=== PATIENT | female | born 1930 | race Caucasian/White ===

== ENCOUNTER 2017-03-13 18:45 | Observation (INO) | payer MEDICARE, BC ==
--- NOTE | 2017-03-13 19:09 | ERNOTE ---
Dyspnea - Date Date of Service: 03/13/17 - General Presenting Symptoms: shortness of breath Time Seen by Provider: 03/13/17 19:01 Source: patient Exam Limitations: no limitations - Immun/Allergies/Home Medications Immunizations: IMMUNIZATION HX Immunizations Up to Date Yes History of Influenza Vaccine Yes Hx Pneumococcal Vaccination Yes Allergies/Adverse Reactions: Allergies erythromycin base [Erythromycin Base] Allergy (Mild, Verified 03/13/17 18:59) Nausea metoclopramide HCl [From Reglan] Allergy (Mild, Verified 03/13/17 18:59) tremors penicillin G Allergy (Mild, Verified 03/13/17 18:59) Hives Penicillins Allergy (Unknown, Verified 03/13/17 18:59) Other unsure of reations tetracycline [Tetracycline] Adverse Reaction (Intermediate, Verified 03/13/17 18 :59) Nausea Home Medications: HOME MEDICATIONS Acetaminophen [Tylenol] 650 mg PO BID PRN 01/17/15 [Last Taken Unknown] Atorvastatin Calcium [Lipitor] 40 mg PO HS 01/17/15 [Last Taken Unknown] Levothyroxine Sodium [Synthroid] 100 mcg PO DAILY 01/17/15 [Last Taken Unknown] Losartan Potassium [Cozaar] 100 mg PO DAILY 01/17/15 [Last Taken Unknown] Omeprazole [Prilosec] 40 mg PO DAILY 01/17/15 [Last Taken Unknown] clonazePAM [Klonopin] 0.5 mg PO BID PRN 03/07/15 [Last Taken Unknown] Gabapentin [Neurontin] 600 mg PO HS #60 capsule 03/09/15 [Last Taken Unknown] Fluticasone Propionate [Flonase] 2 spray NS DAILY PRN 02/14/16 [Last Taken Unknown] Gabapentin [Neurontin] 300 mg PO BID 02/14/16 [Last Taken Unknown] Mesalamine [Lialda] 2.4 gm PO DAILY 02/14/16 [Last Taken Unknown] Tiotropium [place] [Spiriva] 18 mcg IH DAILY 02/14/16 [Last Taken Unknown] Albuterol Sulfate 2.5 mg IH Q4H PRN #25 vial.neb 06/04/16 [Last Taken Unknown] Benzonatate [Tessalon Perle] 100 mg PO TID PRN 06/11/16 [Last Taken Unknown] Carbamide Peroxide [Ear Drops] 3 drop OT Q14D 06/11/16 [Last Taken Unknown] Cetirizine HCl [Zyrtec] 10 mg PO HS 06/11/16 [Last Taken Unknown] Hydrocortisone [Hydrocortisone 1% Cream] 1 appl TP BID 06/11/16 [Last Taken Unknown] Hydrophilic Ointment [Aquaphilic Ointment] 1 appl TP BID 06/11/16 [Last Taken Unknown] Nystatin/Triamcin [Mycolog Cream] 1 appl TP BID 06/11/16 [Last Taken Unknown] Levofloxacin [Levaquin] 500 mg PO Q48H #2 tablet 06/17/16 [Last Taken Unknown] Sennosides/Docusate Sodium [Senokot-S] 1 tab PO BID PRN #60 tablet 06/17/16 [ Last Taken Unknown] Sulfamethoxazole/Trimethoprim [Bactrim] 1 tab PO BID #6 tablet 06/17/16 [Last Taken Unknown] - History of Present Illness Narrative: 6-year-old female presents to the emergency room for increased shortness of breath. Patient is spo2 91% on room air and breathing around 26 breaths per minute at this time. Patient states that she has had shortness of breath before but this is worse. 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 Denies: fever/chills, sweating, chest pain/discomfort, palpitations, cough, wheezing, ankle/leg swelling Review of Systems - Review of Systems Constitutional: Present: no symptoms reported EYE: Present: no symptoms reported ENT: Present: no symptoms reported Respiratory: Present: See HPI, shortness of breath, orthopnea Cardiology: Present: no symptoms reported Gastrointestinal/Abdominal: Present: no symptoms reported Genitourinary: Present: no symptoms reported Musculoskeletal: Present: no symptoms reported Skin: Present: no symptoms reported Neurological: Present: no symptoms reported Endocrine: Present: no symptoms reported Hematologic/Lymphatic: Present: no symptoms reported Psych: Present: no symptoms reported All Other Systems: All systems neg except as marked - Patient's Past Medical History Patient History - Medical: Anemia, Anxiety, Arthritis, Cataracts, Diabetes Type 2, GERD, Hypothyroidism, Osteoarthritis, Renal Disease, UTI'S Patient History - Cardiac/Respiratory: COPD, Other Patient History - Cancer: Colon Patient History - Surgical Procedures: Cancer Surgery, Cholecystectomy, Total Hip Replacement Patient History - Other: None - Family History Mother Family History - Medical: Family History - Cardiac/Respiratory: Myocardial Infarction Father Family History - Medical: - Social History Living Situations: home Abuse History: No History of abuse Psych History: Hx of Anxiety Smoking Status: Former smoker Alcohol Use: none Drug Use: none - Immunizations Immunizations Up to Date: Yes Hx Pneumococcal Vaccination: Yes History of Influenza Vaccine: Yes Physical Exam - Physical Exam General Appearance: Present: wd/wn, alert, mild distress Eye Exam: Normal inspection: bilateral Ears, Nose, Throat: Present: normal ENT inspection Neck: Present: normal inspection, nontender Respiratory: Present: decreased breath sounds Cardiovascular/Chest: Present: regular rate, rhythm, normal peripheral pulses Gastrointestinal/Abdominal: Present: normal bowel sounds, soft Extremity Exam: Present: normal inspection, normal range of motion, no edema Neurological Exam: Present: alert, normal mood/affect, no motor/sensory deficits Skin Exam: Present: normal color, warm/dry Lymphatic Exam: Present: no adenopathy ED Progress - Results and Orders Patient's Lab Results:: I have reviewed the patient's lab results. Results and Orders: low hgb 7.63 - Vital Signs Patient's Vital Signs:: I have reviewed the patient's vital signs. Vital Signs: Vital Signs 03/13/17 03/13/17 18:53 18:57 Temperature 37.4 C Pulse Rate 94 91 Respiratory 20 Rate Blood Pressure 118/94 O2 Sat by Pulse 95 Oximetry - Progress/Reassessment Chief Complaint: Dyspnea Progress:: Unchanged Departure Clinical Impression: Hypoxia Anemia Qualifiers: Anemia type: due to chronic kidney disease Chronic kidney disease stage: stage 3 (moderate) Qualified Code(s): N18.3 - Chronic kidney disease, stage 3 ( moderate); D63.1 - Anemia in chronic kidney disease - Departure Disposition: [facility]
--- OUTSIDE RECORDS SUMMARY | 2017-03-13 19:15 | XMS REPORT | Continuity of Care Document ---
:1930 Author Organization [facility] ([facility]) Address [address] [place] [address] Phone [phone] Care Team Providers Name Role Phone Cecile Pandey Primary Care Provider [phone] Source Comments This disclosure is being made pursuant to the Care Everywhere program, applicable federal and state laws, and may not contain all informaitonavailable regarding this patient.[facility] ([facility]) Active Allergies and Adverse Reactions Allergen Noted Date Severity Reactions Comments Erythromycin Nausea & Vomiting Metoclopramide OTHER tremors Penicillins Urticaria (Hives) Tetracycline Nausea & Vomiting Current Medications Prescription Sig. Disp. Refills Start Date End Date Status atorvastatin Take 40 mg by Active (LIPITOR) 40 mg mouth daily. tablet tiotropium (SPIRIVA Use 18 mcg by Active WITH HANDIHALER) 18 inhalation mcg inhalation daily. capsule clonazePAM 0.5 mg Take 0.5 mg by Active tablet mouth 2 times daily as needed. GABAPENTIN 300 mg 06/01/2015 Active capsule LOSARTAN 100 mg 07/10/2015 Active tablet DILTIAZEM 120 mg ER 05/25/2015 Active capsule NYSTATIN-TRIAMCINOL 05/16/2015 Active ONE 100,000-0.1 unit/g-% cream levothyroxine 100 Take 100 mcg by 05/13/2016 Active mcg tablet mouth daily. acetaminophen 325 Take 325 mg by Active mg tablet mouth every 4 hours as needed. aquaphilic topical Apply topically Active ointment as needed. fluticasone 50 Use 2 Sprays Active mcg/Actuation nasal into both spray nostrils as needed. hydrocortisone 1 % Apply topically Active topical cream 2 times daily. DARBEPOETIN LISS IN Inject by Active POLYSORBAT (ARANESP injection every (IN POLYSORBATE) month. IJ) omeprazole 40 mg 12/06/2016 Active enteric coated capsule sodium bicarbonate Active PO trimethoprim-sulfam 12/12/2016 Active ethoxazole 160-800 mg per tablet balsalazide Take 1 capsule 90 capsule 6 03/07/2017 Active (COLAZAL) 750 mg (750 mg total) capsule by mouth 3 times daily. mesalamine (APRISO) Take 1 capsule 60 capsule 6 12/18/2016 Discontinued 0.375 gram XR (375 mg total) 7 capsule by mouth 2 times daily. Do not take at the same time as antacids. Active Problems Problem Noted Date Gastroesophageal reflux disease without esophagitis 05/15/2016 Diarrhea 07/24/2015 Biliary stone 02/22/2014 Anemia in chronic kidney disease 02/09/2014 Overview: Erythropoietin level 17, Hb 7.7, Reticulocyte count 29 Cholelithiasis 02/06/2014 S/P cholecystectomy 02/06/2014 Choledocholithiasis 02/02/2014 COPD (chronic obstructive pulmonary disease) 02/02/2014 HTN (hypertension) 02/02/2014 HLD (hyperlipidemia) 02/02/2014 Hypothyroidism 02/02/2014 History of colon cancer 08/12/2012 Type II or unspecified type diabetes mellitus without mention of 12/24/2007 complication, not stated as uncontrolled Most Recent Encounters Date Type Specialty Providers Description 03/06/2017 Telephone Med GI/Hepatology Yen Lutz Chief Comp: Need Prior Authorization 03/05/2017 Refill Med GI/Hepatology Kizzy Potts, Dx: Non-specific RN colitis (Primary Dx) 02/26/2017 Office Visit Med GI/Hepatology Jevon Beatty Chief Comp: Patient MD Reported Reason For Visit 12/18/2016 Refill Med GI/Hepatology Jevon Beatty, Dx: Non-specific MD colitis (Primary Dx) 12/17/2016 Telephone Med GI/Hepatology 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 Cruz 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 Results 12/17/2016 Telephone Med GI/Hepatology Jevon Beatty Chief Comp: Results 12/16/2016 Hospital Encounter Radiology Catrachito Kidd, Dx: Anemia, unspecified type 12/16/2016 Office Visit Pathology Jevon Beatty, Chief Comp: Patient MD Reported Reason For Lab Services, Irl Visit 12/16/2016 Office Visit Med GI/Hepatology Jevon Beatty, Dx: MD Pepe unspecified type (Primary Dx) 12/16/2016 Ancillary Orders Med GI/Hepatology Jevon Beatty, Dx: MD Pepe unspecified type (Primary Dx) Social History Tobacco Use Types Packs/Day Years Used Date Former Smoker 1 Quit: 10/06/1999 Smokeless Tobacco: Never Used Tobacco Cessation:Counseling Given: Yes Comments: Alcohol Use Drinks/Week oz/Week Comments No Last Filed Vital Signs Vital Sign Reading Time Taken Blood Pressure 132/62 12/16/2016 3:06 PM CDT Pulse 76 12/16/2016 3:06 PM CDT Temperature 36.9 C (98.4 F) 12/16/2016 3:06 PM CDT Respiratory Rate 16 11/14/2015 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 Height 1.626 m (5' 4.02") 05/15/2016 3:13 PM CDT Weight 71.3 kg (157 lb 3 oz) 12/16/2016 3:06 PM CDT Body Mass Index 26.97 12/16/2016 3:06 PM CDT Oxygen Saturation 95% 11/14/2015 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 Plan of Care Date Type Specialty Providers Description 06/25/2017 Appointment Med GI/Hepatology Jevon Beatty MD Chief Comp: Patient [address] [place] [address] Visit [phone] (Fax) Health Maintenance Due Date Last Done Comments Hepatitis B Vaccine (1 of 3 - Primary 1930 Series) Tdap Vaccine 1941 DIABETIC: Cholesterol 1948 Diabetic: Hdl 1948 Diabetic: Ldl 1948 DIABETIC: Microalbumin 1948 DIABETIC: Triglycerides 1948 Td Vaccine 1948 Zoster Vaccine 1989 Pneumococcal Vaccine (1 of 2 - PCV13) 1994 DIABETIC: Hemoglobin A1C 01/23/2011 07/25/2010, 06/04/2010, 12/21/2007 DIABETIC: Foot Exam 03/19/2011 DIABETIC: Retinal Eye Exam 03/19/2011 Influenza Vaccine: Seasonal (Season 05/06/2017 Ended) Results from Last 3 Months ABDOMEN AP SUPINE (12/16/2016 3:59 PM) Impressions Findings/impression: Lung bases are clear. Greater than expected stool burden in the colon. No evidence for obstruction. Post surgical changes in the right iliac fossa. Pronounced degenerative changes of the lower lumbar spine. Bilateral total hip arthroplasties with no evidence of obvious complication. Exuberant callus formation adjacent to the proximal left femur. Narrative Procedure:ABDOMEN AP SUPINE Clinical Indication: Evaluate stool load Technique: APradiograph(s) of the abdomen. Comparison: CT body from 07/18/2010 Procedure Note [place], Incoming Imaging Results - FriDec 16, 2016 5:04 PM CDT Procedure: ABDOMEN AP SUPINE Clinical Indication: Evaluate stool load Technique: AP radiograph(s) of the abdomen. Comparison: CT body from 07/18/2010 IMPRESSION Findings/impression: Lung bases are clear. Greater than expected stool burden in the colon. No evidence for obstruction. Post surgical changes in the right iliac fossa. Pronounced degenerative changes of the lower lumbar spine. Bilateral total hip arthroplasties with no evidence of obvious complication. Exuberant callus formation adjacent to the proximal left femur. BLOOD CELL MORPHOLOGY (12/16/2016 3:45 PM) Component Value Range Polychromasia Comment:Occasional Schistocytes 1+ Tear Drop 2+ Acanthocytes 1+ Basophilic Stippling Present Large Platelet Present Specimen Whole Blood BLOOD UREA NITROGEN (12/16/2016 3:45 PM) Component Value Range BUN 27(H) 10-20 mg/dL Specimen Blood CREATININE (12/16/2016 3:45 PM) Component Value Range Creatinine 1.6(H)Comment: 0.5-1.0 mg/dL Creatinine switched to enzymatic method on 02/12/2011.GFR equation switched to IDMS-traceable MDRD equation on 02/12/2011. Calculated GFR values are not valid in clinical settings where serum creatinine is changing. Calculated GFR 30(L) >60 mL/min/1.73 m2 Specimen Blood C-REACTIVE PROTEIN (12/16/2016 3:45 PM) Component Value Range CRP (C-Reactive Protein) <0.5 <=0.5 mg/dL Specimen Blood CBC (COMPLETE BLOOD COUNT) (12/16/2016 3:45 PM) Component Value Range WBC Count 8.3 3.7-10.5 K/MM3 RBC Count 2.67(L) 4.00-5.20 M/MM3 Hemoglobin 8.6(L) 11.9-15.5 g/dL Hematocrit 27(L) 35-47 % MCV (Mean Corpuscular Volume) 100(H) 82-99 FL MCH (Mean Corpuscular Hemoglobin) 32 25-35 PG MCHC (Mean Corpuscular Hemoglobin Concentration) 32 32-36 % Platelet Count 162 150-400 K/MM3 RBC Dist Width-STD 70.9(H) 36.4-46.3 FL RBC Distrib Width 20.4(H) 9.0-14.5 % Specimen Whole Blood
[2017-03-13 19:28] LABS: Mean Cell Volume 94.4 fl (78-100); Mean Corpuscular Hemoglobin 30.2 pg (27-31); Mean Corpuscular Hgb Conc 31.9 g/dl (32-36); Mean Platelet Volume 11.9 fl (6.0-9.5); Neutrophil # 5.3 K/mm3 (1.3-6.0); Neutrophil % 72.6 % (42-75.0); Platelet Count 203 K/mm3 (150-450); Red Blood Count 2.52 M/mm3 (4.2-5.4); White Blood Count 7.3 K/mm3 (4.0-10.5)
[2017-03-13 19:30] LABS: Hematocrit 23.8 % (37.0-47.0); Hemoglobin 7.6 gm/dL (12.5-16.0)
[2017-03-13 19:47] LABS: Troponin I Less than 0.017 ng/ml (0.00-0.10)
[2017-03-13 19:48] LABS: ALT 42 U/L (19-67); AST 36 U/L (0-48); Albumin * 2.3 gm/dl (3.4-5.0); Alkaline Phosphatase * 94 U/L (50-170); Anion Gap 15.4 mmol/L (6.8-13.8); BNP * 2568 pg/mL (5-550); BUN/Creatinine Ratio 12.3 (9.0-21.6); Bilirubin, Total 0.4 mg/dL (0.0-1.1); Blood Urea Nitrogen 20 mg/dL (3-23); Ca. Corrected For Albumin 7.7 mg/dL (8.4-10.2); Calcium * 6.7 mg/dL (7.9-10.9); Carbon Dioxide 21.9 mmol/L (24-32.6); Chloride 107 mmol/L (97-106); Glucose * 104 mg/dL (70-110); Potassium 4.3 mmol/L (3.4-4.6); Sodium 140 mmol/L (132-142); Total Protein 6.4 gm/dL (6.2-8.2)
--- OUTSIDE RECORDS SUMMARY | 2017-03-13 20:00 | XMS REPORT | Continuity of Care Document ---
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
[2017-03-13 20:17] LABS: Urine Bilirubin Negative (NEGATIVE); Urine Blood Negative /ul (NEGATIVE); Urine Ketone Negative (NEGATIVE); Urine Nitrite Negative (NEGATIVE); Urine Protein Negative (NEGATIVE); Urine Specific Gravity 1.015 SP.GR. (1.005-1.010); Urine Urobilinogen Normal (NORMAL)
[2017-03-13 20:26] LABS: Urine Appearance Clear; Urine Bacteria None Seen; Urine Color Yellow; Urine RBC None Seen /hpf (0-5); Urine WBC None Seen /hpf (0-5)
[2017-03-13] MEDS ORDERED: FUROSEMIDE 10 MG/ML VIAL IV ONE ×2 (20:37→21:26)
[2017-03-13] MEDS ORDERED: ACETAMINOPHEN 325 MG TABLET PO ONE (21:26)
[2017-03-13] MEDS ORDERED: diphenhydrAMINE HCL 50 MG/ML VIAL IV ONE (21:26)
[2017-03-13] MEDS ORDERED: FUROSEMIDE 10 MG/ML VIAL ONE (21:57)
[2017-03-13] MEDS ORDERED: FUROSEMIDE 10 MG/ML VIAL IV SCH (22:00)
--- NOTE | 2017-03-13 23:22 | HP ---
<Elyssa Faulkner - Last Filed: 03/14/17 04:01> Chief Complaint - Chief Complaint Date of Service: 03/13/17 Time of Service: 21:30 Chief Complaint: dyspnea, anemia, confusion History of Present Illness: Sepideh is an 86 year old female patient of Dr. Pandey with a PMH of DM, CKD stage 3, COPD, systolic CHF, COPD, chronic anemia (currently being worked up by nephrology at [facility]), HTN, HLD who presented to the ER with c/o increased dyspnea for the last month that worsened significantly over the last 2 days. Patient is a poor historian. denies PND, lower extremity edema, fever, chills, or wheezing. 91% on RA in ER. found to be confused at times in the ER that improved with O2 administration per ER provider. ER eval revealed elevated d- dimer but unable to do ct scan due to creatinine of 1.63. CXR showed no acute pulmonary process and an enlarged heart. BNP elevated at 2568. troponin negative. UA negative. hgb lower than chronic normal at 7.6. last echo 02/2010 shows ef 45-50% with sev septal hypokinesis, mod to sev apical wall hypokinesis , mild MR and aortic valve sclerosis without stenosis. heart cath 02/2010 showed normal coronary arteriography with right dominant circulation. Patient to be admitted for CHF exacerbation, anemia and dyspnea. - Patient's Past Medical History Patient History - Medical: Anemia, Anxiety, Arthritis, Cataracts, Diabetes Type 2, GERD, Hypothyroidism, Osteoarthritis, Renal Disease, UTI'S Patient History - Cardiac/Respiratory: COPD, Other Patient History - Cancer: Colon Patient History - Surgical Procedures: Cancer Surgery, Cholecystectomy, Total Hip Replacement Patient History - Other: None LMP (females 10-50): Menopausal - Family History Mother Family History - Medical: Family History - Cardiac/Respiratory: Myocardial Infarction Father Family History - Medical: , No pertinent hx - Social History Living Situations: home Abuse History: No History of abuse Psych History: Hx of Anxiety Smoking Status: Former smoker Have you smoked in the past 12 months: No Do you dip or chew tobacco: No Smoking Stop Date: 03/13/00 Patient requests Smoking Cessation Consult: No Alcohol Use: none Drug Use: none - Immunizations Immunizations Up to Date: Yes Hx Pneumococcal Vaccination: Yes History of Influenza Vaccine: Yes Review Of Systems (GEN) - Review of Systems Generalized/Overall Review: Present: Fatigue EENTM: Present: No Symptoms Reported Respiratory: Present: Shortness of Breath. Absent: Wheezing Cardiac: Present: No Symptoms Reported Abdominal: Present: No Symptoms Reported Genitourinary: Present: No Symptoms Reported Musculoskeletal: Present: No Symptoms Reported Neurological: Present: No Symptoms Reported Skin: Present: No Symptoms Reported Endocrine: Present: No Symptoms Reported Misc: All systems neg except as marked Immunizations: IMMUNIZATION HX Immunizations Up to Date Yes History of Influenza Vaccine Yes Hx Pneumococcal Vaccination Yes Allergies/Adverse Reactions: Allergies Allergy/AdvReac Type Severity Reaction Status Date / Time erythromycin base Allergy Mild Nausea Verified 03/13/17 18:59 [Erythromycin Base] metoclopramide HCl Allergy Mild tremors Verified 03/13/17 18:59 [From Reglan] penicillin G Allergy Mild Hives Verified 03/13/17 18:59 Penicillins Allergy Unknown Other Verified 03/13/17 18:59 tetracycline [Tetracycline] AdvReac Intermediate Nausea Verified 03/13/17 18:59 Home Medications: HOME MEDICATIONS Acetaminophen [Tylenol] 650 mg PO BID PRN 01/17/15 [Last Taken Unknown] Atorvastatin Calcium [Lipitor] 40 mg PO HS 01/17/15 [Last Taken 03/12/17] Levothyroxine Sodium [Synthroid] 100 mcg PO DAILY 01/17/15 [Last Taken 03/13/17] Losartan Potassium [Cozaar] 50 mg PO DAILY 01/17/15 [Last Taken 03/13/17] Omeprazole [Prilosec] 20 mg PO DAILY 01/17/15 [Last Taken 03/13/17] clonazePAM [Klonopin] 0.5 mg PO TID 03/07/15 [Last Taken Unknown] Fluticasone Propionate [Flonase] 2 spray NS DAILY PRN 02/14/16 [Last Taken Unknown] Gabapentin [Neurontin] 300 mg PO TID 02/14/16 [Last Taken 03/13/17] Tiotropium [place] [Spiriva] 18 mcg IH DAILY 02/14/16 [Last Taken 03/13/17] Nystatin/Triamcin [Mycolog Cream] 1 appl TP TID 06/11/16 [Last Taken Unknown] Balsalazide Disodium [Colazal] 750 mg PO TID 03/14/17 [Last Taken Unknown] Calcium Polycarbophil [Fibercon] 625 mg PO DAILY 03/14/17 [Last Taken Unknown] Darbepoetin Moise in Polysorbat [Aranesp] SC .MONTHLY 03/14/17 [Last Taken Unknown] Diltiazem HCl [Cardizem] 120 mg PO HS 03/14/17 [Last Taken Unknown] Estradiol [Estrace Vaginal] 1 gm VG 2XW 03/14/17 [Last Taken Unknown] Loperamide 2 mg PO .Q4H PRN 03/14/17 [Last Taken Unknown] Polyethylene Glycol 3350 [Miralax] 17 gm PO DAILY 03/14/17 [Last Taken Unknown] Sodium Bicarbonate 650 mg PO BID 03/14/17 [Last Taken Unknown] Exam - Exam Vital Signs: Vital Signs - Last Taken Temp 36.6 C 03/13/17 21:00 Pulse 88 03/13/17 22:05 Resp 17 03/13/17 21:00 BP 110/50 03/13/17 22:05 Pulse Ox 92 03/13/17 21:00 Constitutional: Present: Alert, Cooperative, No distress ENT Exam: Present: hearing grossly normal Eye Exam: bilateral eye: normal inspection Neck: Present: supple Back Exam: Present: normal inspection, no vertebral tenderness Breasts: Present: Exam deferred Respiratory: Present: chest non-tender, no respiratory distress, decreased breath sounds Cardiovascular/Chest: Present: normal peripheral pulses, regular rate, rhythm, no chest tenderness, systolic murmur - 2/6. Absent: edema Peripheral Pulses: dorsalis-pedis (R): 2+, dorsalis-pedis (L): 2+, radial (R): 2 +, radial (L): 2+ Abdomen: Present: soft, nontender, nondistended /Rectal: Present: Exam deferred Extremity: Present: non-tender, normal inspection. Absent: lower extremity edema Skin Exam: Present: warm/dry, no cyanosis, pallor Diagnostic Studies: Abnormal Lab Results 03/13/17 Range/Units 20:50 Crossmatch See Detail Laboratory Results WBC 7.3 K/mm3 (4.0-10.5) 03/13/17 19:06 RBC 2.52 M/mm3 (4.2-5.4) L 03/13/17 19:06 Hgb 7.6 gm/dL (12.5-16.0) L* 03/13/17 19:06 Hct 23.8 % (37.0-47.0) L* 03/13/17 19:06 MCV 94.4 fl (78-100) 03/13/17 19:06 MCH 30.2 pg (27-31) 03/13/17 19:06 MCHC 31.9 g/dl (32-36) L 03/13/17 19:06 RDW 20.0 % (11.5-14.0) H 03/13/17 19:06 Plt Count 203 K/mm3 (150-450) 03/13/17 19:06 MPV 11.9 fl (6.0-9.5) H 03/13/17 19:06 Immature Gran % (Auto) 1.20 % (0.001-0.429) H 03/13/17 19:06 Immature Gran # (Auto) 0.09 K/mm3 (0.000-0.0310) H 03/13/17 19:06 Neutrophils % 72.6 % (42-75.0) 03/13/17 19:06 Lymphocytes % 18.6 % (20-51) L 03/13/17 19:06 Monocytes % 5.7 % (0.0-9) 03/13/17 19:06 Eosinophils % 1.5 % (0.0-3.0) 03/13/17 19:06 Basophils % 0.4 % (0.0-1.0) 03/13/17 19:06 Nucleated RBC % 0.0 k/mm3 (0-1) 03/13/17 19:06 Neutrophils # 5.3 K/mm3 (1.3-6.0) 03/13/17 19:06 Lymphocytes # 1.4 k/mm3 (1.5-3.5) L 03/13/17 19:06 Monocytes # 0.4 k/mm3 (0.0-1.0) 03/13/17 19:06 Eosinophils # 0.1 k/mm3 (0.0-0.7) 03/13/17 19:06 Absolute Basophils 0.0 k/mm3 (0.0-0.1) 03/13/17 19:06 D-Dimer 1.31 mg/L (0.19-0.49) H 03/13/17 19:20 Sodium 140 mmol/L (132-142) 03/13/17 19:20 Plasma Sodium 140 mmol/L (130-142) 03/13/17 19:20 Potassium 4.3 mmol/L (3.4-4.6) 03/13/17 19:20 Chloride 107 mmol/L (97-106) H 03/13/17 19:20 Carbon Dioxide 21.9 mmol/L (24-32.6) L 03/13/17 19:20 Anion Gap 15.4 mmol/L (6.8-13.8) H 03/13/17 19:20 BUN 20 mg/dL (3-23) 03/13/17 19:20 Creatinine 1.63 mg/dL (0.4-1.4) H D 03/13/17 19:20 Est GFR (Non-Af Amer) 32 mL/min (60-130) L D 03/13/17 19:20 BUN/Creatinine Ratio 12.3 (9.0-21.6) 03/13/17 19:20 Random Glucose 104 mg/dL (70-110) 03/13/17 19:20 Calcium 6.7 mg/dL (7.9-10.9) L 03/13/17 19:20 Calcium Adj for Albumin 7.7 mg/dL (8.4-10.2) L 03/13/17 19:20 Total Bilirubin 0.4 mg/dL (0.0-1.1) 03/13/17 19:20 AST 36 U/L (0-48) 03/13/17 19:20 ALT 42 U/L (19-67) 03/13/17 19:20 Alkaline Phosphatase 94 U/L (50-170) 03/13/17 19:20 Troponin I Less than 0.017 ng/ml (0.00-0.10) 03/13/17 19:20 B-Natriuretic Peptide 2568 pg/mL (5-550) H 03/13/17 19:20 Total Protein 6.4 gm/dL (6.2-8.2) 03/13/17 19:20 Albumin 2.3 gm/dl (3.4-5.0) L 03/13/17 19:20 Procalcitonin 0.08 ng/mL (0.05-0.50) 03/13/17 19:20 Urine Color Yellow 03/13/17 19:48 Urine Appearance Clear 03/13/17 19:48 Urine pH 6.0 pH (5.0-7.0) 03/13/17 19:48 Ur Specific [place] 1.015 SP.GR. (1.005-1.010) 03/13/17 19:48 Urine Protein Negative mg/dL (NEGATIVE) 03/13/17 19:48 Urine Glucose (UA) Negative mg/dL (NEGATIVE) 03/13/17 19:48 Urine Ketones Negative mg/dL (NEGATIVE) 03/13/17 19:48 Urine Blood Negative /ul (NEGATIVE) 03/13/17 19:48 Urine Nitrate Negative (NEGATIVE) 03/13/17 19:48 Urine Bilirubin Negative mg/dl (NEGATIVE) 03/13/17 19:48 Urine Urobilinogen Normal EU/dl (NORMAL) 03/13/17 19:48 Ur Leukocyte Esterase Negative /ul (NEGATIVE) 03/13/17 19:48 Urine RBC None seen /hpf (0-5) 03/13/17 19:48 Urine WBC None seen /hpf (0-5) 03/13/17 19:48 Ur Epithelial Cells 5-10 /hpf (0-5) H 03/13/17 19:48 Urine Bacteria None seen (NONE) 03/13/17 19:48 Urine Culture Comments No culture indicated 03/13/17 19:48 Blood Type A Positive 03/13/17 20:50 Antibody Screen Negative 03/13/17 20:50 Crossmatch See Detail 03/13/17 20:50 Assessment/Plan - Narrative Narrative: Systolic CHF / dyspnea - last ef in 2009 45-50% with mod-sev wall motion abnormalities. - lasix 60 mg iv x1 03/13/17 - strict I&Os - daily weights - Chest xray shows no acute pulmonary process but enlarged heart - ? echo outpatient Confusion - ? multifactorial due to worsening anemia vs chf exac vs other factor(s) - monitor for now elevated d-dimer - unable to do ct of chest due to elevated creatinine - US of bilat lower legs to rule out dvt COPD - no hypoxia currently - no wheezing heard in lung perez - no recent URI / no fever/chills / no cough - O2 sat goal: 88-92% Diabetes - blood sugar 104 in ER - accu-check AC as a precaution - hold sliding scale for now. Anemia - hgb 7.6 in ER, lower than chronic normal. - higher risk for event due to cardiac history thus chose to transfuse now vs waiting until hgb dropped further. - nephrology consult indicates "unclear etiology, seems to be attributed to underlying chronic kidney disease which is a possibility but the level of kidney function seems inappropriate for the degree of anemia." - hemoccult stool - transfuse 1 unit PRBCs - SLOWLY given systolic CHF - will need iv lasix after unit of blood - recheck h/h post transfusion CKD, Stage 3 - stable - monitor labs while in hospital HTN - monitor vitals signs q 4 hours Code status: Full Code VTE: lovenox / rupesh yoe GI proph: pepcid po - Assessment/Plan (1) CHF (congestive heart failure) Problem: Acute QualifierTitle: Congestive heart failure type: systolic Congestive heart failure chronicity: acute Qualified Code(s): I50.21 - Acute systolic ( congestive) heart failure (2) Confusion Problem: Acute (3) Diabetes Problem: Chronic QualifierTitle: Diabetes mellitus type: type 2 Diabetes mellitus complication status: with kidney complications Diabetes mellitus complication detail: with chronic kidney disease Diabetes mellitus intermission coordinator insulin use: without intermission coordinator use Chronic kidney disease stage: stage 3 (moderate) Qualified Code(s): E11.22 - Type 2 diabetes mellitus with diabetic chronic kidney disease; N18.3 - Chronic kidney disease, stage 3 (moderate) (4) HTN (hypertension) Problem: Chronic QualifierTitle: Hypertension type: essential hypertension Qualified Code( s): I10 - Essential (primary) hypertension (5) HLD (hyperlipidemia) Problem: Chronic QualifierTitle: Hyperlipidemia type: unspecified Qualified Code(s): E78.5 - Hyperlipidemia, unspecified (6) GERD (gastroesophageal reflux disease) Problem: Chronic QualifierTitle: Esophagitis presence: esophagitis presence not specified Qualified Code(s): K21.9 - Gastro-esophageal reflux disease without esophagitis (7) Anemia Problem: Chronic QualifierTitle: Anemia type: due to chronic kidney disease Chronic kidney disease stage: stage 3 (moderate) Qualified Code(s): N18.3 - Chronic kidney disease, stage 3 (moderate); D63.1 - Anemia in chronic kidney disease (8) COPD (chronic obstructive pulmonary disease) Problem: Chronic QualifierTitle: COPD type: unspecified COPD Qualified Code(s): J44.9 - Chronic obstructive pulmonary disease, unspecified (9) Elevated d-dimer Problem: Acute <[email or web address] - Last Filed: 03/14/17 18:11> Immunizations: IMMUNIZATION HX Immunizations Up to Date Yes History of Influenza Vaccine Yes Hx Pneumococcal Vaccination Yes Exam - Exam Vital Signs: Vital Signs - Last Taken Temp 36.4 C L 03/14/17 14:17 Pulse 84 03/14/17 14:17 Resp 16 03/14/17 14:17 BP 147/67 03/14/17 14:17 Pulse Ox 90 03/14/17 14:17 Diagnostic Studies: Abnormal Lab Results 03/13/17 03/14/17 03/14/17 Range/Units 20:50 04:10 04:10 Hgb 9.3 L (12.5-16.0) gm/dL Hct 28.2 L (37.0-47.0) % Anion Gap 16.4 H (6.8-13.8) mmol/L Creatinine 1.72 H (0.4-1.4) mg/dL Est GFR (Non-Af Amer) 30 L (60-130) mL/min Calcium 6.9 L (7.9-10.9) mg/dL Crossmatch See Detail Laboratory Results WBC 7.3 K/mm3 (4.0-10.5) 03/13/17 19:06 RBC 2.52 M/mm3 (4.2-5.4) L 03/13/17 19:06 Hgb 9.3 gm/dL (12.5-16.0) L 03/14/17 04:10 Hct 28.2 % (37.0-47.0) L 03/14/17 04:10 MCV 94.4 fl (78-100) 03/13/17 19:06 MCH 30.2 pg (27-31) 03/13/17 19:06 MCHC 31.9 g/dl (32-36) L 03/13/17 19:06 RDW 20.0 % (11.5-14.0) H 03/13/17 19:06 Plt Count 203 K/mm3 (150-450) 03/13/17 19:06 MPV 11.9 fl (6.0-9.5) H 03/13/17 19:06 Immature Gran % (Auto) 1.20 % (0.001-0.429) H 03/13/17 19:06 Immature Gran # (Auto) 0.09 K/mm3 (0.000-0.0310) H 03/13/17 19:06 Neutrophils % 72.6 % (42-75.0) 03/13/17 19:06 Lymphocytes % 18.6 % (20-51) L 03/13/17 19:06 Monocytes % 5.7 % (0.0-9) 03/13/17 19:06 Eosinophils % 1.5 % (0.0-3.0) 03/13/17 19:06 Basophils % 0.4 % (0.0-1.0) 03/13/17 19:06 Nucleated RBC % 0.0 k/mm3 (0-1) 03/13/17 19:06 Neutrophils # 5.3 K/mm3 (1.3-6.0) 03/13/17 19:06 Lymphocytes # 1.4 k/mm3 (1.5-3.5) L 03/13/17 19:06 Monocytes # 0.4 k/mm3 (0.0-1.0) 03/13/17 19:06 Eosinophils # 0.1 k/mm3 (0.0-0.7) 03/13/17 19:06 Absolute Basophils 0.0 k/mm3 (0.0-0.1) 03/13/17 19:06 D-Dimer 1.31 mg/L (0.19-0.49) H 03/13/17 19:20 Sodium 142 mmol/L (132-142) 03/14/17 04:10 Plasma Sodium 142 mmol/L (130-142) 03/14/17 04:10 Potassium 3.9 mmol/L (3.4-4.6) 03/14/17 04:10 Chloride 105 mmol/L (97-106) 03/14/17 04:10 Carbon Dioxide 24.5 mmol/L (24-32.6) 03/14/17 04:10 Anion Gap 16.4 mmol/L (6.8-13.8) H 03/14/17 04:10 BUN 23 mg/dL (3-23) 03/14/17 04:10 Creatinine 1.72 mg/dL (0.4-1.4) H 03/14/17 04:10 Est GFR (Non-Af Amer) 30 mL/min (60-130) L 03/14/17 04:10 BUN/Creatinine Ratio 13.4 (9.0-21.6) 03/14/17 04:10 Random Glucose 101 mg/dL (70-110) 03/14/17 04:10 Calcium 6.9 mg/dL (7.9-10.9) L 03/14/17 04:10 Calcium Adj for Albumin 7.7 mg/dL (8.4-10.2) L 03/13/17 19:20 Total Bilirubin 0.4 mg/dL (0.0-1.1) 03/13/17 19:20 AST 36 U/L (0-48) 03/13/17 19:20 ALT 42 U/L (19-67) 03/13/17 19:20 Alkaline Phosphatase 94 U/L (50-170) 03/13/17 19:20 Troponin I Less than 0.017 ng/ml (0.00-0.10) 03/13/17 19:20 B-Natriuretic Peptide 2568 pg/mL (5-550) H 03/13/17 19:20 Total Protein 6.4 gm/dL (6.2-8.2) 03/13/17 19:20 Albumin 2.3 gm/dl (3.4-5.0) L 03/13/17 19:20 Procalcitonin 0.08 ng/mL (0.05-0.50) 03/13/17 19:20 Urine Color Yellow 03/13/17 19:48 Urine Appearance Clear 03/13/17 19:48 Urine pH 6.0 pH (5.0-7.0) 03/13/17 19:48 Ur Specific [place] 1.015 SP.GR. (1.005-1.010) 03/13/17 19:48 Urine Protein Negative mg/dL (NEGATIVE) 03/13/17 19:48 Urine Glucose (UA) Negative mg/dL (NEGATIVE) 03/13/17 19:48 Urine Ketones Negative mg/dL (NEGATIVE) 03/13/17 19:48 Urine Blood Negative /ul (NEGATIVE) 03/13/17 19:48 Urine Nitrate Negative (NEGATIVE) 03/13/17 19:48 Urine Bilirubin Negative mg/dl (NEGATIVE) 03/13/17 19:48 Urine Urobilinogen Normal EU/dl (NORMAL) 03/13/17 19:48 Ur Leukocyte Esterase Negative /ul (NEGATIVE) 03/13/17 19:48 Urine RBC None seen /hpf (0-5) 03/13/17 19:48 Urine WBC None seen /hpf (0-5) 03/13/17 19:48 Ur Epithelial Cells 5-10 /hpf (0-5) H 03/13/17 19:48 Urine Bacteria None seen (NONE) 03/13/17 19:48 Urine Culture Comments No culture indicated 03/13/17 19:48 Blood Type A Positive 03/13/17 20:50 Antibody Screen Negative 03/13/17 20:50 Crossmatch See Detail 03/13/17 20:50 Assessment/Plan - Narrative Narrative: I agree with the assessment and plan. I directed our nurse practitioner hospitalist care for this patient.
[2017-03-13] MEDS ORDERED: diphenhydrAMINE HCL 50 MG/ML VIAL ONE (23:42)
[2017-03-13] MEDS ORDERED: ACETAMINOPHEN 325 MG TABLET ONE (23:42)
[2017-03-14] MEDS ORDERED: FUROSEMIDE 10 MG/ML VIAL IV ONE (03:38)
[2017-03-14 04:14] LABS: Hematocrit 28.2 % (37.0-47.0); Hemoglobin 9.3 gm/dL (12.5-16.0)
[2017-03-14] MEDS ORDERED: FLUTICASONE PROPIONATE 120 SPRAY INHALER NS PRN (04:51)
[2017-03-14] MEDS ORDERED: ACETAMINOPHEN 325 MG TABLET PO PRN (04:51)
[2017-03-14] MEDS ORDERED: PANTOPRAZOLE SODIUM 20 MG TABLET.DR PO SCH (07:00)
[2017-03-14] MEDS ORDERED: LEVOTHYROXINE SODIUM 100 MCG TABLET PO SCH (07:00)
[2017-03-14 07:32] LABS: Anion Gap 16.4 mmol/L (6.8-13.8); BUN/Creatinine Ratio 13.4 (9.0-21.6); Calcium * 6.9 mg/dL (7.9-10.9); Carbon Dioxide 24.5 mmol/L (24-32.6); Estimated Creat Clear 19.9; Potassium 3.9 mmol/L (3.4-4.6)
[2017-03-14] MEDS ORDERED: LOSARTAN POTASSIUM 50 MG TABLET PO SCH (09:00)
[2017-03-14] MEDS ORDERED: ENOXAPARIN SODIUM 30 MG/0.3 ML SYRG SC SCH (09:00)
[2017-03-14] MEDS ORDERED: CALCIUM POLYCARBOPHIL 625 MG TABLET PO SCH (09:00)
[2017-03-14] MEDS ORDERED: TIOTROPIUM BROMIDE 5 CAP INHALER IH SCH (09:00)
[2017-03-14] MEDS ORDERED: SODIUM BICARBONATE 650 MG TABLET PO SCH (09:00)
[2017-03-14] MEDS ORDERED: POLYETHYLENE GLYCOL 3350 119 GM BTL PO SCH (09:00)
[2017-03-14] MEDS: GABAPENTIN 300 MG CAPSULE PO SCH ×2 (09:33→14:28)
[2017-03-14] MEDS: TRIAMCIN APPL TP SCH ×2 (09:39→14:28)
[2017-03-14] MEDS: NYSTATIN TP SCH ×2 (09:39→14:28)
--- NOTE | 2017-03-14 13:06 | DS ---
(1) CHF (congestive heart failure) Problem: Acute Qualifiers: Congestive heart failure type: unspecified congestive heart failure type Congestive heart failure chronicity: unspecified congestive heart failure chronicity Qualified Code(s): I50.9 - Heart failure, unspecified (2) Anemia Problem: Chronic Qualifiers: Anemia type: due to chronic kidney disease Chronic kidney disease stage: stage 3 (moderate) Qualified Code(s): N18.3 - Chronic kidney disease, stage 3 (moderate); D63.1 - Anemia in chronic kidney disease (3) GERD (gastroesophageal reflux disease) Problem: Chronic Qualifiers: Esophagitis presence: esophagitis presence not specified Qualified Code(s) : K21.9 - Gastro-esophageal reflux disease without esophagitis (4) HLD (hyperlipidemia) Problem: Chronic Qualifiers: Hyperlipidemia type: unspecified Qualified Code(s): E78.5 - Hyperlipidemia , unspecified (5) HTN (hypertension) Problem: Chronic Qualifiers: Hypertension type: essential hypertension Qualified Code(s): I10 - Essential (primary) hypertension Description of Stay: DATE OF ADMISSION: 03/13/2017. DATE OF DISCHARGE: 03/14/2017. DIAGNOSTICS: US LOWER EXTREMITIES: NEGATIVE FOR DVT. DISCHARGE SUMMARY: Patient is a 85-year-old WF with history of HTN, HLD, hypothyroidism, GERD, OA with bilateral EDY, COPD, CKD [stage III-IV] anemia due to chronic disease/bone marrow disease who initially came to the ER on 03/13/2017 due to SOB for the last few days which is gradually worsening. She was found to be in CHF due to H &H 7.6/23.8. CXR showed an enlarged cardiac silhouette w/o pleural effusions and fibrotic changes. D-dimer was elevated at 1.31 because of which patient underwent US of bilateral lower extremities. This was negative for DVT. Significant lab findings where BNP 2568, troponin <0.017, BUN/CR 20/1.63, GFR 32. Patient was given furosemide 60 mg IV before and after transfusion of PRBC 1 unit. Patient tolerated the procedure well. H&H after transfusion on 2016 9.3/28.2. Patient currently is being seen by nephrology Dr. Stone at [facility], Dr. Watkins at [facility] and has an appt with heme onc at [facility] as her anemia is out of proportion to CKD and is not increasing appropriately to Aranesp. Discussed CODE STATUS in detail with the patient with her daughter being present - Patient is a DNR. . Due to enlargement noted of the cardiac silhouette, a 2-D echo has been ordered and an outpatient basis. She'll be seen in in the clinic in 12-14 days with a CBC done prior to that. Procedures Performed: none Results and Findings: Laboratory Tests 03/13/17 03/14/17 19:06 04:10 WBC 7.3 Hgb 7.6 L* 9.3 L Hct 23.8 L* 28.2 L Plt Count 203 03/13/17 03/14/17 19:20 04:10 Plasma Sodium 140 142 Potassium 4.3 3.9 Chloride 107 H 105 Carbon Dioxide 21.9 L 24.5 BUN 20 23 Creatinine 1.63 H D 1.72 H Est GFR (Non-Af Amer) 32 L D 30 L Random Glucose 104 101 Calcium Adj for Albumin 7.7 L 03/13/17 19:20 Troponin I < 0.017 B-Natriuretic Peptide 2568 H Procalcitonin 0.08 Discharge Disposition: Home self care Disposition: Home self-care Condition: Undetermined Discharge Activity: Activity as tolerated Discharge Diet: Low salt, High Fiber Referrals: Cecile Pandey MD [Primary Care Provider] - Problem Oriented Discharge Instructions to Patient/Family: Anemia, Nonspecific Additional Patient Instructions (free text): TCM appointment at discharge. Please call Heather at ext [phone] when discharged. Follow up with Dr. 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 Follow up with Dr. Pandey 03/27 at 9:30. Lab - CBC done 03/27 Complete Home Medications List: Complete Home Medication List: Acetaminophen [Tylenol] 650 mg PO BID PRN 01/17/15 Atorvastatin Calcium [Lipitor] 40 mg PO HS 01/17/15 Levothyroxine Sodium [Synthroid] 100 mcg PO DAILY 01/17/15 Losartan Potassium [Cozaar] 50 mg PO DAILY 01/17/15 Omeprazole [Prilosec] 20 mg PO DAILY 01/17/15 clonazePAM [Klonopin] 0.5 mg PO TID 03/07/15 Fluticasone Propionate [Flonase] 2 spray NS DAILY PRN 02/14/16 Gabapentin [Neurontin] 300 mg PO TID 02/14/16 Tiotropium [place] [Spiriva] 18 mcg IH DAILY 02/14/16 Nystatin/Triamcin [Mycolog Cream] 1 appl TP TID 06/11/16 Balsalazide Disodium [Colazal] 750 mg PO TID 03/14/17 Calcium Polycarbophil [Fibercon] 625 mg PO DAILY 03/14/17 Darbepoetin Moise in Polysorbat [Aranesp] SC .MONTHLY 03/14/17 Diltiazem HCl [Cardizem] 120 mg PO HS 03/14/17 Estradiol [Estrace Vaginal] 1 gm VG 2XW 03/14/17 Loperamide 2 mg PO .Q4H PRN 03/14/17 Polyethylene Glycol 3350 [Miralax] 17 gm PO DAILY 03/14/17 Sodium Bicarbonate 650 mg PO BID 03/14/17 Amb Orders for Discharge: CBC Time Frame: 2 Weeks, Location: Determined By Patient
[2017-03-14 14:19] VITALS: BP 147/67
[2017-03-14] MEDS ORDERED: ATORVASTATIN CALCIUM 40 MG TABLET PO SCH (21:00)
[2017-03-14] MEDS ORDERED: DILTIAZEM HCL 120 MG CAP.SR.24H PO SCH (21:00)
[2017-03-14] MEDS ORDERED: ROSUVASTATIN CALCIUM 10 MG TABLET PO SCH (21:00)
== END 2017-03-14 17:00 | disposition home or self-care (01) ==
LOC: ER 18:45 → MS 19:55 → UNDOADMOB 19:55
PROVIDERS: ADMIT Nurse Practitioner Critical Care Medicine; ATTEND Internal Medicine
DX: I50.23 Acute on chronic systolic (congestive) heart failure (principal); I12.9 Hypertensive chronic kidney disease with stage 1 through stage 4 chronic kidney disease, or unspecified chronic kidney disease; N18.3 Chronic kidney disease, stage 3 (moderate); D63.1 Anemia in chronic kidney disease; Z87.891 Personal history of nicotine dependence; K21.9 Gastro-esophageal reflux disease without esophagitis; E78.5 Hyperlipidemia, unspecified; E03.9 Hypothyroidism, unspecified; M19.90 Unspecified osteoarthritis, unspecified site
CPT/HCPCS: 36415; 71020; 80048; 80053; 81001; 83880; 84145; 84484; 85014; 85018; 85025; 85379; 86850; 86900; 93005; 93970; 96372; 96374; 96375; 96376; 99284; G0378; P9016

== ENCOUNTER 2017-04-11 10:59 | Emergency (ER) | payer MEDICARE, BC ==
[2017-04-11] MEDS ORDERED: ALBUTEROL SULFATE 2.5 MG/3 ML VIAL.NEB IH ONE (12:43)
--- NOTE | 2017-04-11 12:46 | ERNOTE ---
Dyspnea - General Presenting Symptoms: shortness of breath Time Seen by Provider: 04/11/17 12:29 Source: patient, family Exam Limitations: no limitations - Immun/Allergies/Home Medications Immunizations: IMMUNIZATION HX Immunizations Up to Date Yes History of Influenza Vaccine Yes Hx Pneumococcal Vaccination Yes Allergies/Adverse Reactions: Allergies erythromycin base [Erythromycin Base] Allergy (Mild, Verified 04/11/17 11:15) Nausea metoclopramide HCl [From Reglan] Allergy (Mild, Verified 04/11/17 11:15) tremors penicillin G Allergy (Mild, Verified 04/11/17 11:15) Hives Penicillins Allergy (Unknown, Verified 04/11/17 11:15) Other unsure of reations tetracycline [Tetracycline] Adverse Reaction (Intermediate, Verified 04/11/17 11 :15) Nausea Home Medications: HOME MEDICATIONS Acetaminophen [Tylenol] 650 mg PO BID PRN 01/17/15 [Last Taken Unknown] Atorvastatin Calcium [Lipitor] 40 mg PO HS 01/17/15 [Last Taken 03/12/17] Levothyroxine Sodium [Synthroid] 100 mcg PO DAILY 01/17/15 [Last Taken 03/13/17] Losartan Potassium [Cozaar] 50 mg PO DAILY 01/17/15 [Last Taken 03/13/17] Omeprazole [Prilosec] 20 mg PO DAILY 01/17/15 [Last Taken 03/13/17] clonazePAM [Klonopin] 0.5 mg PO TID 03/07/15 [Last Taken Unknown] Fluticasone Propionate [Flonase] 2 spray NS DAILY PRN 02/14/16 [Last Taken Unknown] Gabapentin [Neurontin] 300 mg PO TID 02/14/16 [Last Taken 03/13/17] Tiotropium [place] [Spiriva] 18 mcg IH DAILY 02/14/16 [Last Taken 03/13/17] Nystatin/Triamcin [Mycolog Cream] 1 appl TP TID 06/11/16 [Last Taken Unknown] Darbepoetin Moise in Polysorbat [Aranesp] SC .MONTHLY 03/14/17 [Last Taken Unknown] Estradiol [Estrace Vaginal] 1 gm VG 2XW 03/14/17 [Last Taken Unknown] Polyethylene Glycol 3350 [Miralax] 17 gm PO DAILY 03/14/17 [Last Taken Unknown] Sodium Bicarbonate 650 mg PO BID 03/14/17 [Last Taken Unknown] Albuterol Sulfate [Albuterol Sulfate 2.5 MG/0.5ML] 1 vial IH Q4H PRN #25 vial.neb 04/11/17 [Last Taken Unknown] Atorvastatin Calcium 40 mg PO DAILY 04/11/17 [Last Taken Unknown] Furosemide [Lasix] 20 mg PO DAILY 04/11/17 [Last Taken Unknown] Metoprolol Succinate 25 mg PO DAILY 04/11/17 [Last Taken Unknown] Sennosides [Senna Lax] 8.6 mg PO BID 04/11/17 [Last Taken Unknown] - History of Present Illness Narrative: Patient has been short of breath for months. She has a diagnosis of CHF (had a recent echo) as well as COPD, renal failure and anemia. She was admitted for CHF exacerbation aobut a month ago, has not felt much better after admission. She take spiriva for COPD but has not used any nebulizers in months, denies chest pain , no fever, dry cough Review of Systems - Review of Systems Constitutional: Present: malaise. Absent: recent illness, fever, chills ENT: Absent: nose congestion, sore throat Respiratory: Present: See HPI, shortness of breath Cardiology: Absent: chest pain Gastrointestinal/Abdominal: Absent: nausea, vomiting, abdominal pain Genitourinary: Present: no symptoms reported Musculoskeletal: Absent: back pain Neurological: Absent: headache - Patient's Past Medical History Patient History - Medical: Anemia, Anxiety, Arthritis, Cataracts, Diabetes Type 2, GERD, Hypothyroidism, Osteoarthritis, Renal Disease, UTI'S Patient History - Cardiac/Respiratory: CHF, COPD, Other Patient History - Cancer: Colon Patient History - Surgical Procedures: Cancer Surgery, Cholecystectomy, Total Hip Replacement Patient History - Other: None LMP (females 10-50): Menopausal - Family History Mother Family History - Medical: Family History - Cardiac/Respiratory: Myocardial Infarction Father Family History - Medical: , No pertinent hx - Social History Living Situations: alone Abuse History: No History of abuse Psych History: Hx of Anxiety Smoking Status: Former smoker Alcohol Use: none Drug Use: none - Immunizations Immunizations Up to Date: Yes Hx Pneumococcal Vaccination: Yes History of Influenza Vaccine: Yes Physical Exam - Physical Exam General Appearance: Present: wd/wn, alert, no apparent distress Respiratory: Present: no respiratory distress, no accessory muscle use, lungs clear, decreased breath sounds, other - talking without signs of distress Cardiovascular/Chest: Present: regular rate, rhythm, no murmur Gastrointestinal/Abdominal: Present: nontender, nondistended, soft Extremity Exam: Present: no edema Neurological Exam: Present: alert, oriented, normal mood/affect Skin Exam: Present: normal color, warm/dry ED Progress - Vital Signs Patient's Vital Signs:: I have reviewed the patient's vital signs. Vital Signs: Vital Signs 04/11/17 04/11/17 04/11/17 11:06 11:39 12:26 Temperature 36.1 C L 36.2 C L Pulse Rate 65 62 66 Respiratory 14 21 H 20 Rate Blood Pressure 151/60 151/58 140/49 O2 Sat by Pulse 94 90 93 Oximetry - Progress/Reassessment Chief Complaint: Dyspnea Progress Note-Subjective: 04/11/17 13:10 patient feeling much better after albuterol neb treatment discussed running more test, had recent test by multiple doctor and more chronic symptoms does not want any more testing done today Departure Clinical Impression: COPD (chronic obstructive pulmonary disease) Qualifiers: COPD type: unspecified COPD Qualified Code(s): J44.9 - Chronic obstructive pulmonary disease, unspecified - Departure Disposition: Home self-care Condition: Good Instructions: Chronic Obstructive Pulmonary Disease, [id number] Additional Instructions: use the nebulizer as needed for shortness of breath call your doctor for follow up Referrals: Cecile Pandey MD [Primary Care Provider] - Prescriptions: Albuterol Sulfate [Albuterol Sulfate 2.5 MG/0.5ML] 1 vial IH Q4H PRN #25 vial.neb PRN Reason: COUGHING/WHEEZING
[2017-04-11] MEDS ORDERED: ALBUTEROL SULFATE 2.5 MG/0.5 ML VIAL.NEB IH ONE (12:47)
[2017-04-11 13:31] VITALS: BP 167/78
== END 2017-04-11 13:33 | disposition home or self-care (01) ==
LOC: ER 10:59
DX: J44.9 Chronic obstructive pulmonary disease, unspecified (principal); Z85.038 Personal history of other malignant neoplasm of large intestine

== ENCOUNTER 2017-04-23 11:15 | Emergency (ER) | payer MEDICARE, BC ==
--- NOTE | 2017-04-23 11:54 | ERNOTE ---
Dyspnea - General Presenting Symptoms: shortness of breath Time Seen by Provider: 04/23/17 11:23 Source: patient Exam Limitations: no limitations - Immun/Allergies/Home Medications Immunizations: IMMUNIZATION HX Immunizations Up to Date Yes History of Influenza Vaccine Yes Hx Pneumococcal Vaccination Yes Allergies/Adverse Reactions: Allergies erythromycin base [Erythromycin Base] Allergy (Mild, Verified 04/23/17 11:27) Nausea metoclopramide HCl [From Reglan] Allergy (Mild, Verified 04/23/17 11:27) tremors penicillin G Allergy (Mild, Verified 04/23/17 11:27) Hives Penicillins Allergy (Unknown, Verified 04/23/17 11:27) Other unsure of reations tetracycline [Tetracycline] Adverse Reaction (Intermediate, Verified 04/23/17 11 :27) Nausea Home Medications: HOME MEDICATIONS Acetaminophen [Tylenol] 650 mg PO BID PRN 01/17/15 [Last Taken Unknown] Atorvastatin Calcium [Lipitor] 40 mg PO HS 01/17/15 [Last Taken 03/12/17] Levothyroxine Sodium [Synthroid] 100 mcg PO DAILY 01/17/15 [Last Taken 03/13/17] Losartan Potassium [Cozaar] 50 mg PO DAILY 01/17/15 [Last Taken 03/13/17] Omeprazole [Prilosec] 20 mg PO DAILY 01/17/15 [Last Taken 03/13/17] clonazePAM [Klonopin] 0.5 mg PO TID 03/07/15 [Last Taken Unknown] Fluticasone Propionate [Flonase] 2 spray NS DAILY PRN 02/14/16 [Last Taken Unknown] Gabapentin [Neurontin] 300 mg PO TID 02/14/16 [Last Taken 03/13/17] Tiotropium [place] [Spiriva] 18 mcg IH DAILY 02/14/16 [Last Taken 03/13/17] Nystatin/Triamcin [Mycolog Cream] 1 appl TP TID 06/11/16 [Last Taken Unknown] Darbepoetin Moise in [place] [Aranesp] 1 dose SC .MONTHLY 03/14/17 [Last Taken Unknown] Estradiol [Estrace Vaginal] 1 gm VG 2XW 03/14/17 [Last Taken Unknown] Polyethylene Glycol 3350 [Miralax] 17 gm PO DAILY 03/14/17 [Last Taken Unknown] Sodium Bicarbonate 650 mg PO BID 03/14/17 [Last Taken Unknown] Albuterol Sulfate [Albuterol Sulfate 2.5 MG/0.5ML] 1 vial IH Q4H PRN #25 vial.neb 04/11/17 [Last Taken Unknown] Atorvastatin Calcium 40 mg PO DAILY 04/11/17 [Last Taken Unknown] Furosemide [Lasix] 20 mg PO DAILY 04/11/17 [Last Taken Unknown] Metoprolol Succinate 25 mg PO DAILY 04/11/17 [Last Taken Unknown] Sennosides [Senna Lax] 8.6 mg PO BID 04/11/17 [Last Taken Unknown] - History of Present Illness Narrative: Patient has a history of CHF and anemia. She has chronic shortness of breath, was seen for that in the ER two weeks ago and did not want any evaluation at that time. she was given albuterol which improved her symptoms and which she had not used in a while. Two days ago she received a blood [facility], has not really felt much better after that but her breathing feels different since, coughs a little more, no sputum. 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 Absent: recent illness, fever Respiratory: Present: See HPI Cardiology: Absent: chest pain Gastrointestinal/Abdominal: Present: diarrhea - chronic episodic (colitis), started again last night. Absent: nausea, vomiting Musculoskeletal: Present: joint pain - right hip Skin: Absent: rash Neurological: Absent: headache - Patient's Past Medical History Patient History - Medical: Anemia Patient History - Cardiac/Respiratory: CHF, COPD, Other Patient History - Cancer: Colon Patient History - Surgical Procedures: Cancer Surgery, Cholecystectomy, Total Hip Replacement Patient History - Other: None - Family History Mother Family History - Medical: Family History - Cardiac/Respiratory: Myocardial Infarction Father Family History - Medical: , No pertinent hx - Social History Living Situations: alone Abuse History: No History of abuse Psych History: Hx of Anxiety Smoking Status: Never smoker Alcohol Use: none Drug Use: none - Immunizations Immunizations Up to Date: Yes Hx Pneumococcal Vaccination: Yes History of Influenza Vaccine: Yes Physical Exam - Physical Exam General Appearance: Present: wd/wn, alert, no apparent distress - talking non stip without signs of distress Respiratory: Present: no respiratory distress, no accessory muscle use, lungs clear, decreased breath sounds Cardiovascular/Chest: Present: regular rate, rhythm, no murmur Gastrointestinal/Abdominal: Present: normal bowel sounds, nontender, nondistended, soft Extremity Exam: Present: no edema Neurological Exam: Present: alert, oriented, normal mood/affect Skin Exam: Present: normal color, warm/dry ED Progress - Results and Orders Patient's Lab Results:: I have reviewed the patient's lab results. - Vital Signs Patient's Vital Signs:: I have reviewed the patient's vital signs. Vital Signs: Vital Signs 04/23/17 11:22 Temperature 36.3 C L Pulse Rate 71 Respiratory 16 Rate Blood Pressure 142/76 O2 Sat by Pulse 97 Oximetry - Progress/Reassessment Chief Complaint: Dyspnea Progress Note-Subjective: 04/23/17 12:48 discussed with nichelle Salazar to increase lasix to 40mg daily 04/23/17 12:58 discussed results and plan with patient and family Departure Clinical Impression: CHF (congestive heart failure) Qualifiers: Congestive heart failure type: unspecified congestive heart failure type Congestive heart failure chronicity: acute on chronic Qualified Code(s): I50.9 - Heart failure, unspecified - Departure Disposition: Home self-care Condition: Good Instructions: Heart Failure, [id number] Additional Instructions: double your lasix and take 40mg daily till you see Dr Pandey in two days Referrals: Cecile Pandey MD [Primary Care Provider] -
[2017-04-23 11:58] LABS: Hemoglobin 9.3 gm/dL (12.5-16.0); Mean Cell Volume 94.2 fl (78-100); Mean Corpuscular Hemoglobin 30.2 pg (27-31); Mean Corpuscular Hgb Conc 32.1 g/dl (32-36); NRBC# 0.1 k/mm3 (0-1); Neutrophil # 4.2 K/mm3 (1.3-6.0); Neutrophil % 68.3 % (42-75.0); Red Blood Count 3.08 M/mm3 (4.2-5.4); Red Cell Distribution Width 20.3 % (11.5-14.0); White Blood Count 6.2 K/mm3 (4.0-10.5)
[2017-04-23 12:23] LABS: Platelet Count 126 K/mm3 (150-450)
[2017-04-23 12:30] LABS: Albumin * 2.8 gm/dl (3.4-5.0); Anion Gap 15.5 mmol/L (6.8-13.8); BUN/Creatinine Ratio 14.9 (9.0-21.6); Bilirubin, Total 0.6 mg/dL (0.0-1.1); Ca. Corrected For Albumin 7.7 mg/dL (8.4-10.2); Calcium * 7.1 mg/dL (7.9-10.9); Carbon Dioxide 18.7 mmol/L (24-32.6); Potassium 4.2 mmol/L (3.4-4.6); Total Protein 6.4 gm/dL (6.2-8.2)
[2017-04-23 12:55] VITALS: BP 152/52
[2017-04-23] MEDS ORDERED: FUROSEMIDE 40 MG TABLET PO ONE (12:58)
[2017-04-23] MEDS ORDERED: FUROSEMIDE 40 MG TABLET ONE (12:59)
== END 2017-04-23 13:05 | disposition home or self-care (01) ==
LOC: ER 11:15
DX: I50.9 Heart failure, unspecified (principal); J44.9 Chronic obstructive pulmonary disease, unspecified; Z85.038 Personal history of other malignant neoplasm of large intestine

== ENCOUNTER 2017-05-26 14:18 | Observation (INO) | payer MEDICARE, BC ==
[2017-05-26 14:45] LABS: Hematocrit 29.3 % (37.0-47.0); Hemoglobin 9.2 gm/dL (12.5-16.0); Mean Cell Volume 96.7 fl (78-100); Mean Corpuscular Hemoglobin 30.4 pg (27-31); Mean Corpuscular Hgb Conc 31.4 g/dl (32-36); Neutrophil # 3.8 K/mm3 (1.3-6.0); Neutrophil % 59.3 % (42-75.0); Red Blood Count 3.03 M/mm3 (4.2-5.4); Red Cell Distribution Width 22.2 % (11.5-14.0); White Blood Count 6.4 K/mm3 (4.0-10.5)
[2017-05-26 14:49] LABS: Platelet Count 99 K/mm3 (150-450)
[2017-05-26 15:03] LABS: Anion Gap 15.4 mmol/L (6.8-13.8); Ca. Corrected For Albumin 7.1 mg/dL (8.4-10.2); Calcium * 6.6 mg/dL (7.9-10.9); Carbon Dioxide 23.8 mmol/L (24-32.6); Potassium 4.2 mmol/L (3.4-4.6); Total Protein 6.2 gm/dL (6.2-8.2); Troponin I 0.028 ng/ml (0.00-0.10)
[2017-05-26] MEDS ORDERED: FUROSEMIDE 10 MG/ML VIAL ONE ×2 (15:34→16:38)
[2017-05-26] MEDS ORDERED: FUROSEMIDE 10 MG/ML VIAL IV ONE (16:12)
[2017-05-26] MEDS: FUROSEMIDE 10 MG/ML VIAL IV ONE ×2 (16:35→16:41)
--- NOTE | 2017-05-26 16:35 | OR ---
Anesthesia Procedure Note - Anesthesia Procedure Note Narrative: Vital Signs - Last Taken Temp 36.4 C L 05/26/17 14:21 Pulse 75 05/26/17 16:04 Resp 16 05/26/17 16:04 BP 142/53 05/26/17 15:31 Pulse Ox 92 05/26/17 16:04 05/26/17 16:34 ANESTHESIA PROCEDURE NOTE Date of procedure: A 10/25/2016. Time of procedure: 1625. Performed by: Dallin Veras CRNA Custom Protection Officer: None . Preprocedure diagnosis: Difficult IV access. Post procedure diagnosis: Same. Procedure: IV start Indications: Difficult IV access. Findings: 20-gauge IV started in patient's right wrist EBL: Minimal. Fluids: N/A. Specimen: N/A. Post procedure condition: The patient tolerated the procedure well. No complications were noted. Thank you for this consultation Dallin Veras CRNA
--- NOTE | 2017-05-26 16:58 | ERNOTE ---
Dyspnea - Date Date of Service: 05/26/17 - General Presenting Symptoms: shortness of breath Time Seen by Provider: 05/26/17 14:21 Source: patient Exam Limitations: no limitations - Immun/Allergies/Home Medications Immunizations: IMMUNIZATION HX Immunizations Up to Date Yes History of Influenza Vaccine Yes Hx Pneumococcal Vaccination Yes Allergies/Adverse Reactions: Allergies erythromycin base [Erythromycin Base] Allergy (Mild, Verified 04/23/17 11:27) Nausea metoclopramide HCl [From Reglan] Allergy (Mild, Verified 04/23/17 11:27) tremors penicillin G Allergy (Mild, Verified 04/23/17 11:27) Hives Penicillins Allergy (Unknown, Verified 04/23/17 11:27) Other unsure of reations tetracycline [Tetracycline] Adverse Reaction (Intermediate, Verified 04/23/17 11 :27) Nausea Home Medications: HOME MEDICATIONS Acetaminophen [Tylenol] 650 mg PO BID PRN 01/17/15 [Last Taken Unknown] Atorvastatin Calcium [Lipitor] 40 mg PO HS 01/17/15 [Last Taken 03/12/17] Levothyroxine Sodium [Synthroid] 100 mcg PO DAILY 01/17/15 [Last Taken 03/13/17] Losartan Potassium [Cozaar] 50 mg PO DAILY 01/17/15 [Last Taken 03/13/17] Omeprazole [Prilosec] 20 mg PO DAILY 01/17/15 [Last Taken 03/13/17] clonazePAM [Klonopin] 0.5 mg PO TID 03/07/15 [Last Taken Unknown] Fluticasone Propionate [Flonase] 2 spray NS DAILY PRN 02/14/16 [Last Taken Unknown] Gabapentin [Neurontin] 300 mg PO TID 02/14/16 [Last Taken 03/13/17] Tiotropium [place] [Spiriva] 18 mcg IH DAILY 02/14/16 [Last Taken 03/13/17] Nystatin/Triamcin [Mycolog Cream] 1 appl TP TID 06/11/16 [Last Taken Unknown] Darbepoetin Moise in [place] [Aranesp] 1 dose SC .MONTHLY 03/14/17 [Last Taken Unknown] Estradiol [Estrace Vaginal] 1 gm VG 2XW 03/14/17 [Last Taken Unknown] Polyethylene Glycol 3350 [Miralax] 17 gm PO DAILY 03/14/17 [Last Taken Unknown] Sodium Bicarbonate 650 mg PO BID 03/14/17 [Last Taken Unknown] Albuterol Sulfate [Albuterol Sulfate 2.5 MG/0.5ML] 1 vial IH Q4H PRN #25 vial.neb 04/11/17 [Last Taken Unknown] Atorvastatin Calcium 40 mg PO DAILY 04/11/17 [Last Taken Unknown] Furosemide [Lasix] 20 mg PO DAILY 04/11/17 [Last Taken Unknown] Metoprolol Succinate 25 mg PO DAILY 04/11/17 [Last Taken Unknown] Sennosides [Senna Lax] 8.6 mg PO BID 04/11/17 [Last Taken Unknown] - History of Present Illness Narrative: patient presents to ED with increased SOB for the last several days. Has to sit up at night and cannot sleep d/t SOB. NO fever, minimal cough. No vomiting. No CP at this time. She states she has been taking her lasix. No focal weakness. She states that she has extreme SOB on exertion Severity: moderate Initiating event: Reports: unknown Frequency of episodes: Reports: occassional episodes Modifying Factors - (Improves): Reports: rest Modifying Factors (Worsens): Reports: activity Associated Symptoms-Dyspnea: Reports: lightheadedness. Denies: fever/chills, leg/calf pain Prior Treatment: Denies: recently seen Review of Systems - Review of Systems Constitutional: Absent: fever Respiratory: Present: shortness of breath Cardiology: Absent: chest pain Gastrointestinal/Abdominal: Absent: abdominal pain All Other Systems: All systems neg except as marked - Patient's Past Medical History Patient History - Medical: Anemia Patient History - Cardiac/Respiratory: CHF, COPD, Other Patient History - Cancer: Colon Patient History - Surgical Procedures: Cancer Surgery, Cholecystectomy, Total Hip Replacement Patient History - Other: None LMP (females 10-50): post - Family History Mother Family History - Medical: Family History - Cardiac/Respiratory: Myocardial Infarction Father Family History - Medical: , No pertinent hx - Social History Living Situations: home Abuse History: No History of abuse Psych History: Hx of Anxiety Smoking Status: Never smoker Alcohol Use: none Drug Use: none - Immunizations Immunizations Up to Date: Yes Hx Pneumococcal Vaccination: Yes History of Influenza Vaccine: Yes Physical Exam - Physical Exam General Appearance: Present: alert, other - Mild tachypnea with talking, after ambulation she has RR well over 30 BPM Head Exam: Present: normal inspection, no evidence of injury Eye Exam: Normal inspection: bilateral, PERRL: bilateral Ears, Nose, Throat: Present: normal ENT inspection Neck: Present: normal inspection Respiratory: Present: no accessory muscle use, other - faint tubular BS bases bilterally Cardiovascular/Chest: Present: regular rate, rhythm, normal peripheral pulses Gastrointestinal/Abdominal: Present: normal bowel sounds, nontender, soft Back Exam: Present: normal range of motion Extremity Exam: Present: other - 2+ edema Neurological Exam: Present: alert, normal mood/affect, no motor/sensory deficits Skin Exam: Present: normal color, warm/dry ED Progress - Results and Orders Patient's Lab Results:: I have reviewed the patient's lab results. - Vital Signs Patient's Vital Signs:: I have reviewed the patient's vital signs. Vital Signs: Vital Signs 05/26/17 05/26/17 05/26/17 14:21 14:37 14:59 Temperature 36.4 C L Pulse Rate 77 78 77 Respiratory 15 17 Rate Blood Pressure 143/113 114/113 137/89 O2 Sat by Pulse 99 94 96 Oximetry 05/26/17 05/26/17 15:31 16:04 Temperature Pulse Rate 76 75 Respiratory 16 16 Rate Blood Pressure 142/53 O2 Sat by Pulse 98 92 Oximetry - EKG EKG: NSR EKG read: Interp. by me EKG Comments: Rate 78. Non-specific changes, no clear evidence of STEMI - X-Ray X-Ray #1 X-Ray: chest Interpretation: Interp. by me X-ray Comments: I reviewed official report - Progress/Reassessment Chief Complaint: Dyspnea Progress Note-Subjective: 05/26/17 16:54 Patient was very tachypnic with even minimal exertion. She did not feel she could go home like this. Admitted to Dr Pandey Departure Clinical Impression: SOB (shortness of breath), CHF exacerbation - Departure Disposition: [facility] Condition: Stable
[2017-05-26] MEDS ORDERED: FLUTICASONE PROPIONATE 120 SPRAY INHALER NS PRN (18:09)
[2017-05-26 19:24] LABS: Iron 44 mcg/dL (35-120); Transferrin Sat. (% Sat.) 21 % (15-55)
[2017-05-26] MEDS ORDERED: ACETAMINOPHEN 325 MG TABLET PO PRN (19:47)
--- NOTE | 2017-05-26 20:23 | HP ---
Chief Complaint - Chief Complaint Date of Service: 05/26/17 Time of Service: 19:47 Chief Complaint: Swollen legs, shortness of breath History of Present Illness: 86 years old female adm to the hospital from ER with reports of increased shortness of breath, swelling to lower extremities, non productive cough and weakness x 1 week that have gotten progressively worst today. She denies chest pain, palpitation, wheezing, fever and chills. PMH significant for Systolic CHF , COPD, diabetes, hypertension, colitis CKD and anemia. pt a poor historian and information obtained from previous records and pt daughter.Per daughter pt was at the ER 03/13/17 for shortness of breath since then she has been consistent with her medications and diet. IN ER CXR : No acute cardiopulmonary process, she was given Lasix 40mg x1, BNP 67221. Plans to adm for CHf exacerbation and will diuresis. [place] of care discussed with pt and daughter they verbalized understanding and agrees. - Patient's Past Medical History Patient History - Medical: Anemia, Diabetes Type 2, GERD, Hypothyroidism, Renal Disease, Other - colitis Patient History - Cardiac/Respiratory: CHF - 2009 ECHO (systolic EF 45-50%), COPD, Hypertension, Hyperlipidemia, Other Patient History - Cancer: Colon Patient History - Surgical Procedures: Appendectomy, Cancer Surgery - colon resection, Cholecystectomy, Hysterectomy, Total Hip Replacement - bilateral Patient History - Other: None LMP (females 10-50): Menopausal - Family History Mother Family History - Medical: Family History - Cardiac/Respiratory: Myocardial Infarction Father Family History - Medical: , No pertinent hx - Social History Living Situations: alone Abuse History: No History of abuse Psych History: Hx of Anxiety Does anyone smoke in the home?: No Smoking Status: Former smoker Have you smoked in the past 12 months: No Do you dip or chew tobacco: No Alcohol Use: none Drug Use: none - Immunizations Immunizations Up to Date: Yes Hx Pneumococcal Vaccination: Yes History of Influenza Vaccine: Yes Review Of Systems (GEN) - Review of Systems Generalized/Overall Review: Present: Weakness, Weight gain Respiratory: Present: Cough - non productive, Shortness of Breath, Orthopnea Cardiac: Present: Edema Abdominal: Present: No Symptoms Reported Genitourinary: Present: Frequency Musculoskeletal: Present: No Symptoms Reported Neurological: Present: No Symptoms Reported Skin: Present: No Symptoms Reported Endocrine: Present: No Symptoms Reported Immunizations: IMMUNIZATION HX Immunizations Up to Date Yes History of Influenza Vaccine Yes Hx Pneumococcal Vaccination Yes Allergies/Adverse Reactions: Allergies Allergy/AdvReac Type Severity Reaction Status Date / Time erythromycin base Allergy Mild Nausea Verified 04/23/17 11:27 [Erythromycin Base] metoclopramide HCl Allergy Mild tremors Verified 04/23/17 11:27 [From Reglan] penicillin G Allergy Mild Hives Verified 04/23/17 11:27 Penicillins Allergy Unknown Other Verified 04/23/17 11:27 tetracycline [Tetracycline] AdvReac Intermediate Nausea Verified 04/23/17 11:27 Home Medications: HOME MEDICATIONS Acetaminophen [Tylenol] 650 mg PO BID PRN 01/17/15 [Last Taken Unknown] Atorvastatin Calcium [Lipitor] 40 mg PO HS 01/17/15 [Last Taken 03/12/17] Levothyroxine Sodium [Synthroid] 100 mcg PO DAILY 01/17/15 [Last Taken 03/13/17] Losartan Potassium [Cozaar] 50 mg PO DAILY 01/17/15 [Last Taken 03/13/17] Omeprazole [Prilosec] 20 mg PO DAILY 01/17/15 [Last Taken 03/13/17] clonazePAM [Klonopin] 0.5 mg PO TID 03/07/15 [Last Taken Unknown] Fluticasone Propionate [Flonase] 2 spray NS DAILY PRN 02/14/16 [Last Taken Unknown] Gabapentin [Neurontin] 300 mg PO TID 02/14/16 [Last Taken 03/13/17] Tiotropium [place] [Spiriva] 18 mcg IH DAILY 02/14/16 [Last Taken 03/13/17] Nystatin/Triamcin [Mycolog Cream] 1 appl TP TID 06/11/16 [Last Taken Unknown] Darbepoetin Moise in Polysorbat [Aranesp] 1 dose SC .MONTHLY 03/14/17 [Last Taken Unknown] Estradiol [Estrace Vaginal] 1 gm VG 2XW 03/14/17 [Last Taken Unknown] Polyethylene Glycol 3350 [Miralax] 17 gm PO DAILY 03/14/17 [Last Taken Unknown] Sodium Bicarbonate 650 mg PO BID 03/14/17 [Last Taken Unknown] Albuterol Sulfate [Albuterol Sulfate 2.5 MG/0.5ML] 1 vial IH Q4H PRN #25 vial.neb 04/11/17 [Last Taken Unknown] Atorvastatin Calcium 40 mg PO DAILY 04/11/17 [Last Taken Unknown] Furosemide [Lasix] 20 mg PO DAILY 04/11/17 [Last Taken Unknown] Metoprolol Succinate 25 mg PO DAILY 04/11/17 [Last Taken Unknown] Sennosides [Senna Lax] 8.6 mg PO BID 04/11/17 [Last Taken Unknown] Exam - Exam Vital Signs: Vital Signs - Last Taken Temp 36.5 C 05/26/17 17:12 Pulse 77 05/26/17 16:42 Resp 13 05/26/17 16:32 BP 154/87 05/26/17 17:12 Pulse Ox 91 05/26/17 16:32 Constitutional: Present: Alert, Oriented x3, Cooperative, Well developed, Mild distress ENT Exam: Present: hard of hearing Eye Exam: bilateral eye: normal inspection Neck: Present: full range of motion Back Exam: Present: normal inspection Breasts: Present: Exam deferred Respiratory: Present: decreased breath sounds Cardiovascular/Chest: Present: normal peripheral pulses, no JVD, systolic murmur Peripheral Pulses: dorsalis-pedis (R): 2+, dorsalis-pedis (L): 2+ Abdomen: Present: Normal bowel sounds, soft, nontender /Rectal: Present: Exam deferred Extremity: Present: normal range of motion, lower extremity edema, pedal edema, swelling Skin Exam: Present: normal color Lymphatic: Present: no adenopathy Neurologic: Present: oriented x 3 Appearance: Present: appropriate appearance Eye contact: Present: cooperative, good eye contact Thoughts: Present: normal thought pattern Diagnostic Studies: Laboratory Results WBC 6.4 K/mm3 (4.0-10.5) 05/26/17 14:33 RBC 3.03 M/mm3 (4.2-5.4) L 05/26/17 14:33 Hgb 9.2 gm/dL (12.5-16.0) L 05/26/17 14:33 Hct 29.3 % (37.0-47.0) L 05/26/17 14:33 MCV 96.7 fl (78-100) 05/26/17 14:33 MCH 30.4 pg (27-31) 05/26/17 14:33 MCHC 31.4 g/dl (32-36) L 05/26/17 14:33 RDW 22.2 % (11.5-14.0) H 05/26/17 14:33 Plt Count 99 K/mm3 (150-450) L 05/26/17 14:33 Immature Gran % (Auto) 0.30 % (0.001-0.429) 05/26/17 14:33 Immature Gran # (Auto) 0.02 K/mm3 (0.000-0.0310) 05/26/17 14:33 Neutrophils % 59.3 % (42-75.0) 05/26/17 14:33 Lymphocytes % 31.3 % (20-51) 05/26/17 14:33 Monocytes % 6.3 % (0.0-9) 05/26/17 14:33 Eosinophils % 2.5 % (0.0-3.0) 05/26/17 14:33 Basophils % 0.3 % (0.0-1.0) 05/26/17 14:33 Nucleated RBC % 0.0 k/mm3 (0-1) 05/26/17 14:33 Neutrophils # 3.8 K/mm3 (1.3-6.0) 05/26/17 14:33 Lymphocytes # 2.0 k/mm3 (1.5-3.5) 05/26/17 14:33 Monocytes # 0.4 k/mm3 (0.0-1.0) 05/26/17 14:33 Eosinophils # 0.2 k/mm3 (0.0-0.7) 05/26/17 14:33 Absolute Basophils 0.0 k/mm3 (0.0-0.1) 05/26/17 14:33 Sodium 143 mmol/L (132-142) H 05/26/17 14:33 Plasma Sodium 144 mmol/L (130-142) H 05/26/17 14:33 Potassium 4.2 mmol/L (3.4-4.6) 05/26/17 14:33 Chloride 108 mmol/L (97-106) H 05/26/17 14:33 Carbon Dioxide 23.8 mmol/L (24-32.6) L 05/26/17 14:33 Anion Gap 15.4 mmol/L (6.8-13.8) H 05/26/17 14:33 BUN 17 mg/dL (3-23) 05/26/17 14:33 Creatinine 1.42 mg/dL (0.4-1.4) H 05/26/17 14:33 Est GFR (Non-Af Amer) 37 mL/min (60-130) L 05/26/17 14:33 BUN/Creatinine Ratio 12.0 (9.0-21.6) 05/26/17 14:33 Random Glucose 157 mg/dL (70-110) H 05/26/17 14:33 Lactic Acid, Venous 1.2 mmol/L (0.4-1.9) 05/26/17 14:33 Calcium 6.6 mg/dL (7.9-10.9) L 05/26/17 14:33 Calcium Adj for Albumin 7.1 mg/dL (8.4-10.2) L 05/26/17 14:33 Iron 44 mcg/dL (35-120) 05/26/17 14:33 TIBC 205 mcg/dL (260-445) L 05/26/17 14:33 Transferrin % Sat 21 % (15-55) 05/26/17 14:33 Total Bilirubin 1.0 mg/dL (0.0-1.1) 05/26/17 14:33 AST 51 U/L (0-48) H 05/26/17 14:33 ALT 66 U/L (19-67) 05/26/17 14:33 Alkaline Phosphatase 105 U/L (50-170) 05/26/17 14:33 Troponin I 0.028 ng/ml (0.00-0.10) 05/26/17 14:33 B-Natriuretic Peptide 29489 pg/mL (5-550) H 05/26/17 14:33 Total Protein 6.2 gm/dL (6.2-8.2) 05/26/17 14:33 Albumin 3.0 gm/dl (3.4-5.0) L 05/26/17 14:33 CXR: No cardiopulmonary abnormalities Assessment/Plan - Narrative Narrative: Acute on chronic systolic CHF exacerbation- pt report increased edema, shortness of breath and orthopnea using 3 pillows to sleep. Lasix 40mg x1 given in ER, continue with diuresis while hospitalized Last ECho 2009 EF 45% moderate to severe motion wall abnormality. Strict I/O Daily weight Low sodium diet Supplemented oxygen Anemia of chronic disease- secondary to chronic kidney disease Pt is been followed at [facility] CKD stage III On adm Bun/ Cre 17.42, GFR 37 she is been followed at [facility] Dr. Stone COPD- no exacerbation continue to monitor resume home medications Diabetes- diet control Accu-check AC+HS Hypertension On adm BP 154/87 Continue with Toprol Xl BID Code status: DNR DVt ppx: Ambulate GI ppx: protonix Time 45 minutes - Assessment/Plan (1) CHF exacerbation Problem: Acute Qualifiers: Congestive heart failure type: systolic Qualified Code(s): I50.23 - Acute on chronic systolic (congestive) heart failure (2) Anemia Problem: Chronic (3) COPD (chronic obstructive pulmonary disease) Problem: Chronic (4) Diabetes Problem: Chronic Qualifiers: (5) GERD (gastroesophageal reflux disease) Problem: Chronic Qualifiers: (6) HLD (hyperlipidemia) Problem: Chronic Qualifiers: (7) HTN (hypertension) Problem: Chronic Qualifiers:
[2017-05-26] MEDS ORDERED: METOPROLOL SUCCINATE 50 MG TABLET.SA PO ONE (20:36)
[2017-05-26] MEDS: SENNOSIDES 8.6 MG TABLET PO SCH ×2 (20:38→20:41)
[2017-05-26] MEDS ORDERED: SODIUM BICARBONATE 650 MG TABLET PO SCH (21:00)
[2017-05-26] MEDS ORDERED: METOPROLOL SUCCINATE 25 MG TABLET.SA PO SCH (21:00)
[2017-05-26] MEDS ORDERED: GABAPENTIN 300 MG CAPSULE PO SCH (22:55)
[2017-05-26] MEDS ORDERED: GABAPENTIN 600 MG TABLET ONE (23:00)
[2017-05-27] MEDS ORDERED: ALBUTEROL SULFATE 2.5 MG/0.5 ML VIAL.NEB IH PRN (00:05)
[2017-05-27 06:13] LABS: Albumin * 3.2 gm/dl (3.4-5.0); Anion Gap 13.7 mmol/L (6.8-13.8); BUN/Creatinine Ratio 13.2 (9.0-21.6); Ca. Corrected For Albumin 7.5 mg/dL (8.4-10.2); Calcium * 7.2 mg/dL (7.9-10.9); Carbon Dioxide 26.3 mmol/L (24-32.6); Total Protein 6.9 gm/dL (6.2-8.2)
[2017-05-27] MEDS ORDERED: ALBUTEROL SULFATE 2.5 MG/3 ML VIAL.NEB IH PRN (06:39)
[2017-05-27] MEDS ORDERED: PANTOPRAZOLE SODIUM 20 MG TABLET.DR PO SCH (07:00)
[2017-05-27] MEDS ORDERED: LEVOTHYROXINE SODIUM 100 MCG TABLET PO SCH (07:00)
[2017-05-27] MEDS ORDERED: TIOTROPIUM BROMIDE 5 CAP INHALER IH SCH (09:00)
[2017-05-27] MEDS ORDERED: GABAPENTIN 300 MG CAPSULE PO SCH (09:00)
[2017-05-27] MEDS ORDERED: POLYETHYLENE GLYCOL 3350 119 GM BTL PO SCH (09:00)
[2017-05-27] MEDS ORDERED: LOSARTAN POTASSIUM 50 MG TABLET PO SCH (09:00)
[2017-05-27] MEDS: SODIUM BICARBONATE 650 MG TABLET PO SCH ×3 (09:43→16:57)
[2017-05-27] MEDS ORDERED: FUROSEMIDE 40 MG, FUROSEMIDE 20 MG IV ONE ×2 (09:45)
[2017-05-27] MEDS ORDERED: METOLAZONE 2.5 MG TABLET PO ONE (09:45)
[2017-05-27] MEDS ORDERED: SPIRONOLACTONE 25 MG TABLET PO ONE (10:15)
[2017-05-27] MEDS ORDERED: FUROSEMIDE 10 MG/ML VIAL IV ONE (10:15)
[2017-05-27 15:05] VITALS: BP 136/57
--- NOTE | 2017-05-27 17:55 | DS ---
(1) CHF exacerbation Problem: Acute Qualifiers: Congestive heart failure type: systolic Qualified Code(s): I50.23 - Acute on chronic systolic (congestive) heart failure (2) SOB (shortness of breath) Problem: Acute Description of Stay: Date of admission: 05/26/17 Date of discharge: 05/27/17 Description of Stay: Sepideh is an 86 year old female who presented to the ER with c/o dyspnea, lower extremity swelling, cough and weakness for 1 week. Chest xray showed no acute cardiopulmonary changes. patient was started on IV lasix and admitted for CHF exacerbation for diuresis. During admission, patient diuresed 3100 ml and clinical symptoms improved. Patient was discharged on oral lasix and spironlactone. Follow up made with Dr. Pandey, labs to be checked at followup. A total of 46 minutes spent with patient discussing plan of care, prescription options, reconciliation of medications and preparing / dictating discharge summary. Procedures Performed: none Discharge Disposition: Home self care Disposition: Home self-care Condition: Undetermined Discharge Activity: Activity as tolerated Discharge Diet: Low salt Problem Oriented Discharge Instructions to Patient/Family: Heart Failure, Easy- to-Read, CHF Patient Instructions Additional Patient Instructions (free text): . Avoid foods with lots of salt. New Medications: 1. Hydralazine 10 mg by mouth 2 times a day (take at 7 am or with am meds and 2 pm) 2. Spironolactone 12.5 mg by mouth daily (take daily at noon) Dose change: 1. Lasix 40 mg by mouth daily ( take daily at noon) Follow up with Dr. Pandey on Friday with a CMP. Prescriptions (Any new or edited meds): Furosemide [Lasix] 40 mg PO DAILY #30 tablet hydrALAZINE HCL [Hydralazine HCl] 10 mg PO BID #60 tablet Spironolactone [Aldactone] 12.5 mg PO DAILY #30 tablet Complete Home Medications List: Complete Home Medication List: Acetaminophen [Tylenol] 650 mg PO BID PRN 01/17/15 Atorvastatin Calcium [Lipitor] 40 mg PO HS 01/17/15 Levothyroxine Sodium [Synthroid] 100 mcg PO DAILY 01/17/15 Losartan Potassium [Cozaar] 50 mg PO DAILY 01/17/15 Omeprazole [Prilosec] 20 mg PO DAILY 01/17/15 clonazePAM [Klonopin] 0.5 mg PO TID PRN 03/07/15 Gabapentin [Neurontin] 600 mg PO HS 02/14/16 Tiotropium [place] [Spiriva] 18 mcg IH DAILY 02/14/16 Sodium Bicarbonate 650 mg PO TID 03/14/17 Albuterol Sulfate [Albuterol Sulfate 2.5 MG/0.5ML] 1 vial IH Q4H PRN #25 vial.neb 04/11/17 Metoprolol Succinate 25 mg PO DAILY 04/11/17 Darbepoetin [place] in [place] [Aranesp] 100 mcg SC 05/27/17 Furosemide [Lasix] 40 mg PO DAILY #30 tablet 05/27/17 Spironolactone [Aldactone] 12.5 mg PO DAILY #30 tablet 05/27/17 hydrALAZINE HCL [Hydralazine HCl] 10 mg PO BID #60 tablet 05/27/17 Amb Orders for Discharge: Comprehensive Metabolic Panel Time Frame: 05/30/17, Location: Determined By Patient
[2017-05-27] MEDS ORDERED: GABAPENTIN 600 MG TABLET PO SCH (21:00)
== END 2017-05-27 19:35 | disposition home or self-care (01) ==
LOC: ER 14:18 → MS 16:23
PROVIDERS: ADMIT Internal Medicine; ATTEND Internal Medicine
DX: I50.23 Acute on chronic systolic (congestive) heart failure (principal); I12.9 Hypertensive chronic kidney disease with stage 1 through stage 4 chronic kidney disease, or unspecified chronic kidney disease; N18.4 Chronic kidney disease, stage 4 (severe); D63.1 Anemia in chronic kidney disease; Z87.891 Personal history of nicotine dependence; J44.9 Chronic obstructive pulmonary disease, unspecified; E11.9 Type 2 diabetes mellitus without complications; I10 Essential (primary) hypertension
CPT/HCPCS: 36415; 71020; 80053; 83540; 83550; 83605; 83880; 84484; 85025; 93005; 94640; 96374; 96376; 99285; G0378

== ENCOUNTER 2018-05-07 07:27 | Observation (INO) ==
[2018-05-07] MEDS ORDERED: ALBUTEROL SULFATE/IPRATROPIUM 3 ML NEBU IH ONE (07:59)
[2018-05-07 08:05] LABS: Hemoglobin 10.2 gm/dL (12.5-16.0); Mean Cell Volume 106.1 fl (78-100); Mean Corpuscular Hemoglobin 32.8 pg (27-31); Mean Corpuscular Hgb Conc 30.9 g/dl (32-36); Mean Platelet Volume 13.9 fl (8-12.5); Neutrophil # 12.6 K/mm3 (1.3-6.0); Neutrophil % 85.7 % (42-75.0); Platelet Count 142 K/mm3 (150-450); Red Blood Count 3.11 M/mm3 (4.2-5.4); Red Cell Distribution Width 19.6 % (11.5-14.0); White Blood Count 14.7 K/mm3 (4.0-10.5)
[2018-05-07] MEDS ORDERED: HYDROCORTISONE SOD SUCCINATE 50 MG/ML VIAL IV ONE (08:16)
[2018-05-07 08:17] LABS: Urine Bilirubin Negative (NEGATIVE); Urine Blood 50 /ul (NEGATIVE); Urine Ketone Negative (NEGATIVE); Urine Protein 100 mg/dL (NEGATIVE); Urine Urobilinogen Normal (NORMAL)
--- NOTE | 2018-05-07 08:17 | ERNOTE ---
Medical Problem HPI - General Chief Complaint: General Assessment Time Seen by Provider: 05/07/18 08:00 Source: patient, EMS Exam Limitations: no limitations - Immun/Allergies/Home Medications Immunizations: IMMUNIZATION HX Immunizations Up to Date Yes History of Influenza Vaccine Yes Hx Pneumococcal Vaccination Yes Allergies/Adverse Reactions: Allergies erythromycin base [Erythromycin Base] Allergy (Mild, Verified 03/25/18 07:33) Nausea metoclopramide HCl [From Reglan] Allergy (Mild, Verified 03/25/18 07:33) tremors penicillin G Allergy (Mild, Verified 03/25/18 07:33) Hives Penicillins Allergy (Unknown, Verified 03/25/18 07:33) Other unsure of reations azithromycin [From Zithromax] Allergy (Verified 05/07/18 07:33) gemfibrozil Allergy (Verified 05/07/18 07:33) levofloxacin Allergy (Verified 05/07/18 07:33) tetracycline [Tetracycline] Adverse Reaction (Intermediate, Verified 03/25/18 07 :33) Nausea Home Medications: HOME MEDICATIONS Acetaminophen [Tylenol] 650 mg PO BID 01/17/15 [Last Taken Unknown] Atorvastatin Calcium [Lipitor] 40 mg PO HS 01/17/15 [Last Taken 03/24/18] Losartan Potassium [Cozaar] 50 mg PO BID 01/17/15 [Last Taken 03/25/18] Omeprazole [Prilosec] 20 mg PO DAILY 01/17/15 [Last Taken 03/24/18] clonazePAM [Klonopin] 0.5 mg PO BID PRN 03/07/15 [Last Taken Unknown] Gabapentin [Neurontin] 600 mg PO HS 02/14/16 [Last Taken 03/24/18] Tiotropium [place] [Spiriva] 18 mcg IH DAILY 02/14/16 [Last Taken 03/13/17] Sodium Bicarbonate 1,300 mg PO TID 03/14/17 [Last Taken Unknown] Darbepoetin Moise in Polysorbat [Aranesp] 100 mcg SC Q30D 05/27/17 [Last Taken ] Dimethic/Zinc Ox/Vits A,D/Aloe [A and D Diaper Rash Cream] 113 gm TP DAILY 09/23 [Last Taken Unknown] Polyethylene Glycol 3350 [Miralax] 17 gm PO DAILY PRN 09/23/17 [Last Taken Unknown] Betamethasone/Propylene Glyc [Betamethasone Dp Aug 0.05% Crm] 1 appl TP SUWEFR 03/20/18 [Last Taken Unknown] Carvedilol [Coreg] 3.125 mg PO BID 03/20/18 [Last Taken 03/25/18] Cholestyramine (with Sugar) [Questran Powder] 2 gm PO DAILY PRN 03/20/18 [Last Taken Unknown] Furosemide [Lasix] 40 mg PO BID 03/20/18 [Last Taken 03/24/18] HYDROcodone/ACETAMINOPHEN [Hydrocodon-Acetaminophen 5-325] 0.5 ea PO TID PRN [Last Taken Unknown] traMADol HCL [Tramadol HCl] 50 mg PO Q4H 03/20/18 [Last Taken Unknown] Fluticasone Propionate [Flonase] 1 inhaler DAILY PRN 03/25/18 [Last Taken Unknown] oxyCODONE HCL/ACETAMINOPHEN [Percocet 5-325 mg Tablet] 1 - 2 ea PO Q6H PRN #30 tab 03/25/18 [Last Taken Unknown] Calcium Carbonate 600 mg PO DAILY 05/07/18 [Last Taken Unknown] Cholecalciferol (Vitamin D3) [Vitamin D3] 1,000 unit PO DAILY 05/07/18 [Last Taken Unknown] Famotidine 20 mg PO DAILY 05/07/18 [Last Taken Unknown] Ipratropium/Albuterol Sulfate [Iprat-Albut 0.5-3(2.5) mg/3 ml] 3 ml IH Q4H PRN 05/07/18 [Last Taken Unknown] Levothyroxine Sodium [Synthroid] 175 mcg PO DAILY 05/07/18 [Last Taken Unknown] Potassium Chloride [Klor-Con 10] 10 meq PO DAILY 05/07/18 [Last Taken Unknown] Sertraline HCl [Zoloft] 25 mg PO DAILY 05/07/18 [Last Taken Unknown] hydrALAZINE HCL [Apresoline] 25 mg PO TID 05/07/18 [Last Taken Unknown] - History of Present History Narrative: [facility] with [facility] shortness of breath and cough. She was found to be hypoxic at the [facility] and he called the ambulance service or to be evaluated. According to the patient the symptoms are at least moderate in severity if not worse. Timing: constant, getting worse Severity: moderate Modifying Factors - (Improves): Present: other - oxygen Review of Systems - Review of Systems Constitutional: Present: See HPI EYE: Present: no symptoms reported ENT: Present: no symptoms reported Respiratory: Present: shortness of breath, cough, wheezing Cardiology: Present: no symptoms reported Gastrointestinal/Abdominal: Present: no symptoms reported Genitourinary: Present: no symptoms reported Musculoskeletal: Present: no symptoms reported Skin: Present: no symptoms reported Neurological: Present: no symptoms reported Endocrine: Present: no symptoms reported Hematologic/Lymphatic: Present: no symptoms reported Psych: Present: no symptoms reported Medical History (Last Updated 05/07/18 @ 08:50 by Paris No RN) COPD (chronic obstructive pulmonary disease) Anemia Anxiety Chronic diarrhea Chronic kidney disease Colitis Diabetes mellitus GERD (gastroesophageal reflux disease) H/O echocardiogram Onset Date: ~03/18/17 Hyperkalemia Hyperlipidemia Hypertension Hypothyroid Osteoarthritis Colon cancer Pneumonia Surgical History: Surgical History (Last Updated 05/07/18 @ 08:50 by Paris No RN) Cataract Onset Date: ~2006 H/O breast biopsy Onset Date: Unknown H/O colonoscopy Onset Date: 2009 H/O cystometrogram Onset Date: Unknown H/O cystoscopy Onset Date: Unknown History of ERCP Onset Date: 02/02/14 History of appendectomy Onset Date: 1993 History of cholecystectomy Onset Date: 02/02/14 History of colon resection Onset Date: 2009 History of hysterectomy Onset Date: 1969 History of left hip replacement Onset Date: 02/14/12 History of right hip replacement Onset Date: 01/12/13 History of tonsillectomy Onset Date: Unknown Rectocele Onset Date: Unknown History of carpal tunnel release Onset Date: 03/25/18 Family History: Family History (Last Updated 04/05/18 @ 15:39 by Pasquale Gaxiola) Father Hepatitis Mother Arthritis Cancer Heart disease Hypertension Myocardial infarction Sister CVA (cerebral vascular accident) Hypertension Social History: Preferred Language Greenlandic Do you have any episcopalian or No cultural preference? Smoking Status Former smoker Have you smoked in the past 12 No months Do you dip or chew tobacco No Abuse History Emotional abuse Psych History Hx of Anxiety Alcohol Use none Drug Use none Physical Exam - Physical Exam General Appearance: Present: wd/wn, alert, moderate distress Head Exam: Present: normal inspection, no evidence of injury Eye Exam: Normal inspection: bilateral, PERRL: bilateral Ears, Nose, Throat: Present: normal ENT inspection, H, normal pharynx Neck: Present: normal inspection, nontender Respiratory: Present: no accessory muscle use, chest nontender, chest tenderness - patient has a known rib fracture, wheezing, other - fine course breath sounds heard throughout Cardiovascular/Chest: Present: regular rate, rhythm, no murmur, normal peripheral pulses Gastrointestinal/Abdominal: Present: normal bowel sounds, nontender, nondistended, soft, no organomegaly Rectal Exam: Present: deferred Pelvic Exam: Present: deferred Back Exam: Present: normal inspection, normal range of motion Extremity Exam: Present: normal inspection, non-tender, no edema, normal range of motion Neurological Exam: Present: alert, oriented, normal mood/affect Skin Exam: Present: normal color, warm/dry Lymphatic Exam: Present: no adenopathy ED Progress - Results and Orders Patient's Lab Results:: I have reviewed the patient's lab results. - Vital Signs Patient's Vital Signs:: I have reviewed the patient's vital signs. Vital Signs: Vital Signs 05/07/18 07:39 Temperature 37.1 C Pulse Rate 90 Respiratory Rate 14 Blood Pressure 160/84 H O2 Sat by Pulse Oximetry 99 - EKG EKG: NSR, premature ventricular contraction EKG read: Reviewed by me - X-Ray X-Ray #1 X-Ray: chest Interpretation: Reviewed by me - Progress/Reassessment Chief Complaint: General Assessment Plan - Plan Plan: Patient has a posterior problems most of them acute on chronic. She was hypoxic at the [facility] with saturations in the low 80s, she has known COPD with a current exacerbation, she has a UTI, she has chronic renal failure stage IV and she has a troponin leak likely secondary to prolonged hypoxia as well as the renal failure. The patient will be admitted for diuresis, support for the COPD and hypoxia as well as antibiotics for the UTI. Departure Clinical Impression: Hypoxia, Stage 4 chronic kidney disease Urinary tract infection Qualifiers: Urinary tract infection type: acute cystitis Hematuria presence: without hematuria Qualified Code(s): N30.00 - Acute cystitis without hematuria COPD (chronic obstructive pulmonary disease) Qualifiers: COPD type: COPD with acute exacerbation Qualified Code(s): J44.1 - Chronic obstructive pulmonary disease with (acute) exacerbation CHF (congestive heart failure) Qualifiers: Heart failure type: other Qualified Code(s): I50.9 - Heart failure, unspecified - Departure Disposition: Still a patient Condition: Fair
[2018-05-07 08:25] LABS: Troponin I 0.143 ng/ml (0.00-0.10)
[2018-05-07 08:27] LABS: Anion Gap 12.9 mmol/L (6.8-13.8); BUN/Creatinine Ratio 13.9 (9.0-21.6); Bilirubin, Total 0.8 mg/dL (0.0-1.1); CKMB 1.1 ng/mL (0.0-9.0); Carbon Dioxide 27.7 mmol/L (24-32.6); Potassium 4.6 mmol/L (3.4-4.6); Total Protein 6.6 gm/dL (6.2-8.2)
[2018-05-07 08:32] LABS: Urine Appearance Cloudy (CLEAR); Urine Color Yellow; Urine Nitrite Positive (NEGATIVE)
[2018-05-07] MEDS ORDERED: HYDROCORTISONE SOD SUCCINATE 50 MG/ML VIAL ONE ×2 (08:32→08:42)
[2018-05-07 08:33] LABS: Urine Bacteria 3+; Urine RBC >50 /hpf (0-5); Urine WBC >50 /hpf (0-5)
[2018-05-07] MEDS ORDERED: FUROSEMIDE 10 MG/ML VIAL IV ONE (09:21)
[2018-05-07] MEDS ORDERED: FUROSEMIDE 10 MG/ML VIAL ONE (09:26)
[2018-05-07 11:55] LABS: Calcium * 7.5 mg/dL (7.9-10.9)
--- NOTE | 2018-05-07 19:54 | HP ---
Chief Complaint - Chief Complaint Date of Service: 05/07/18 Time of Service: 19:54 Chief Complaint: Shortness of breath, hypoxic History of Present Illness: 87 years old female adm to the hospital with reports of progressive shortness of breath, non productive cough and hypoxic while at the [facility]. Per patient she stated her s/s was getting worse and she was seen by Dr Nicolas yesterday and had increased dose of Lasix. In ER CXR: vascular congestion/ interstitial edema and she had a dose of Lasix 80mg x1. ER spo2 94% on 3 l nasal cannula, she was initiated on Levaquin q8Hrs for UTI. Plan of care discussed with pt she verbalized understanding and agrees. Medical History (Last Reviewed 05/07/18 @ 13:35 by Paris No RN) COPD (chronic obstructive pulmonary disease) Anemia Anxiety Chronic diarrhea Chronic kidney disease Colitis Diabetes mellitus GERD (gastroesophageal reflux disease) Hyperkalemia Hyperlipidemia Hypertension Hypothyroid Osteoarthritis Colon cancer H/O echocardiogram Onset Date: ~03/18/17 Pneumonia Surgical History: Surgical History (Last Updated 05/07/18 @ 13:35 by Paris No RN) Cataract Onset Date: ~2006 H/O breast biopsy Onset Date: Unknown H/O colonoscopy Onset Date: 2009 H/O cystometrogram Onset Date: Unknown H/O cystoscopy Onset Date: Unknown History of ERCP Onset Date: 02/02/14 History of appendectomy Onset Date: 1993 History of carpal tunnel release Onset Date: 03/25/18 History of cholecystectomy Onset Date: 02/02/14 History of colon resection Onset Date: 2009 History of hysterectomy Onset Date: 1969 History of left hip replacement Onset Date: 02/14/12 History of right hip replacement Onset Date: 01/12/13 History of tonsillectomy Onset Date: Unknown Rectocele Onset Date: Unknown Family History: Family History (Last Reviewed 05/07/18 @ 13:35 by Paris No RN) Father Hepatitis Mother Arthritis Cancer Heart disease Hypertension Myocardial infarction Sister CVA (cerebral vascular accident) Hypertension Social History: Patient Lives/Resources [employer] Utilized 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 Smoking Status Former smoker Have you smoked in the past 12 No months Do you dip or chew tobacco No Abuse History Emotional abuse Psych History Hx of Anxiety Alcohol Use none Drug Use none Review Of Systems (GEN) - Review of Systems Generalized/Overall Review: Present: No Symptoms Reported EENTM: Present: Other - Hard of hearing Respiratory: Present: Cough, Shortness of Breath, Orthopnea Cardiac: Present: No Symptoms Reported Abdominal: Present: No Symptoms Reported Genitourinary: Present: Itching, Dysuria Musculoskeletal: Present: No Symptoms Reported Neurological: Present: No Symptoms Reported Skin: Present: No Symptoms Reported Endocrine: Present: No Symptoms Reported Immunizations: IMMUNIZATION HX Immunizations Up to Date Yes History of Influenza Vaccine Yes Hx Pneumococcal Vaccination Yes Allergies/Adverse Reactions: Allergies Allergy/AdvReac Type Severity Reaction Status Date / Time erythromycin base Allergy Mild Nausea Verified 05/07/18 10:15 [Erythromycin Base] metoclopramide HCl Allergy Mild tremors Verified 05/07/18 10:15 [From Reglan] penicillin G Allergy Mild Hives Verified 05/07/18 10:15 Penicillins Allergy Unknown Other Verified 05/07/18 10:15 azithromycin [From Zithromax] Allergy Verified 05/07/18 10:15 gemfibrozil Allergy Verified 05/07/18 10:15 levofloxacin Allergy Verified 05/07/18 10:15 tetracycline [Tetracycline] AdvReac Intermediate Nausea Verified 05/07/18 10:15 Home Medications: HOME MEDICATIONS Acetaminophen [Tylenol] 650 mg PO BID 01/17/15 [Last Taken Unknown] Atorvastatin Calcium [Lipitor] 40 mg PO HS 01/17/15 [Last Taken 03/24/18] clonazePAM [Klonopin] 0.5 mg PO BID PRN 03/07/15 [Last Taken Unknown] Gabapentin [Neurontin] 600 mg PO HS 02/14/16 [Last Taken 03/24/18] Tiotropium [place] [Spiriva] 18 mcg IH DAILY 02/14/16 [Last Taken 03/13/17] Sodium Bicarbonate 1,300 mg PO TID 03/14/17 [Last Taken Unknown] Dimethic/Zinc Ox/Vits A,D/Aloe [A and D Diaper Rash Cream] 113 gm TP DAILY 09/23 [Last Taken Unknown] Polyethylene Glycol 3350 [Miralax] 17 gm PO DAILY PRN 09/23/17 [Last Taken Unknown] Carvedilol [Coreg] 3.125 mg PO BID 03/20/18 [Last Taken 03/25/18] Cholestyramine (with Sugar) [Questran Powder] 2 gm PO Q48H 03/20/18 [Last Taken Unknown] Furosemide [Lasix] 40 mg PO BID 03/20/18 [Last Taken 03/24/18] traMADol HCL [Tramadol HCl] 50 mg PO Q4H 03/20/18 [Last Taken Unknown] Calcium Carbonate 1,200 mg PO QAM 05/07/18 [Last Taken Unknown] Cholecalciferol (Vitamin D3) [Vitamin D3] 1,000 unit PO DAILY 05/07/18 [Last Taken Unknown] Famotidine 20 mg PO DAILY 05/07/18 [Last Taken Unknown] Ipratropium/Albuterol Sulfate [Iprat-Albut 0.5-3(2.5) mg/3 ml] 3 ml IH Q4H PRN 05/07/18 [Last Taken Unknown] Levothyroxine Sodium [Synthroid] 175 mcg PO QAM 05/07/18 [Last Taken Unknown] Potassium Chloride [Klor-Con 10] 10 meq PO DAILY 05/07/18 [Last Taken Unknown] Sertraline HCl [Zoloft] 25 mg PO DAILY 05/07/18 [Last Taken Unknown] hydrALAZINE HCL [Apresoline] 25 mg PO TID 05/07/18 [Last Taken Unknown] Exam - Exam Vital Signs: Vital Signs - Last Taken Temp 36.7 C 05/07/18 19:02 Pulse 75 05/07/18 19:02 Resp 16 05/07/18 19:02 BP 140/62 05/07/18 19:02 Pulse Ox 95 05/07/18 19:02 Constitutional: Present: Alert, Oriented x3, Cooperative, No distress, Elderly ENT Exam: Present: hard of hearing Eye Exam: bilateral eye: normal inspection Neck: Present: full range of motion Back Exam: Present: normal inspection Breasts: Present: Exam deferred Respiratory: Present: chest non-tender, no accessory muscle use, decreased breath sounds, crackles Cardiovascular/Chest: Present: normal peripheral pulses, regular rate, rhythm, no chest tenderness, no edema Peripheral Pulses: dorsalis-pedis (R): 3+, dorsalis-pedis (L): 3+ Abdomen: Present: Normal bowel sounds, soft, nontender, nondistended /Rectal: Present: Exam deferred Extremity: Present: normal range of motion, non-tender, no calf tenderness Skin Exam: Present: normal color, warm/dry Neurologic: Present: wood hacker II-XII nml as tested, oriented x 3 Appearance: Present: appropriate appearance Eye contact: Present: cooperative, good eye contact Thoughts: Present: normal thought pattern Diagnostic Studies: Abnormal Lab Results 05/07/18 05/07/18 05/07/18 Range/Units 07:50 07:50 08:03 WBC 14.7 H D (4.0-10.5) K/mm3 RBC 3.11 L (4.2-5.4) M/mm3 Hgb 10.2 L (12.5-16.0) gm/dL Hct 33.0 L (37.0-47.0) % MCV 106.1 H (78-100) fl MCH 32.8 H (27-31) pg MCHC 30.9 L (32-36) g/dl RDW 19.6 H (11.5-14.0) % Plt Count 142 L (150-450) K/mm3 MPV 13.9 H (8-12.5) fl Immature Gran # (Auto) 0.06 H (0.000-0.0310) K/mm3 Neutrophils % 85.7 H (42-75.0) % Lymphocytes % 9.3 L (20-51) % Neutrophils # 12.6 H (1.3-6.0) K/mm3 Lymphocytes # 1.37 L (1.5-3.5) k/mm3 pO2 (83.0-108.0) mmHg Total CO2 (19.0-24.0) mmol/L BUN 28 H (3-23) mg/dL Creatinine 2.01 H (0.4-1.4) mg/dL Est GFR (Non-Af Amer) 25 L (60-130) mL/min Calcium 7.5 L (7.9-10.9) mg/dL Calcium Adj for Albumin 8.0 L (8.4-10.2) mg/dL ALT 16 L (19-67) U/L Creatine Kinase 284 H (0-259) U/L Troponin I 0.143 H* (0.00-0.10) ng/ml B-Natriuretic Peptide 7336 H (5-550) pg/mL Albumin 3.0 L (3.4-5.0) gm/dl Urine pH 8.0 H (5.0-7.0) pH Urine Protein 100 H (NEGATIVE) mg/dL Urine Blood 50 H (NEGATIVE) /ul Urine Nitrate Positive H (NEGATIVE) Ur Leukocyte Esterase 500 H (NEGATIVE) /ul Urine RBC >50 H (0-5) /hpf Urine WBC >50 H (0-5) /hpf Urine Bacteria 3+ H (NONE) 05/07/18 Range/Units 08:50 WBC (4.0-10.5) K/mm3 RBC (4.2-5.4) M/mm3 Hgb (12.5-16.0) gm/dL Hct (37.0-47.0) % MCV (78-100) fl MCH (27-31) pg MCHC (32-36) g/dl RDW (11.5-14.0) % Plt Count (150-450) K/mm3 MPV (8-12.5) fl Immature Gran # (Auto) (0.000-0.0310) K/mm3 Neutrophils % (42-75.0) % Lymphocytes % (20-51) % Neutrophils # (1.3-6.0) K/mm3 Lymphocytes # (1.5-3.5) k/mm3 pO2 70.5 L (83.0-108.0) mmHg Total CO2 26.2 H (19.0-24.0) mmol/L BUN (3-23) mg/dL Creatinine (0.4-1.4) mg/dL Est GFR (Non-Af Amer) (60-130) mL/min Calcium (7.9-10.9) mg/dL Calcium Adj for Albumin (8.4-10.2) mg/dL ALT (19-67) U/L Creatine Kinase (0-259) U/L Troponin I (0.00-0.10) ng/ml B-Natriuretic Peptide (5-550) pg/mL Albumin (3.4-5.0) gm/dl Urine pH (5.0-7.0) pH Urine Protein (NEGATIVE) mg/dL Urine Blood (NEGATIVE) /ul Urine Nitrate (NEGATIVE) Ur Leukocyte Esterase (NEGATIVE) /ul Urine RBC (0-5) /hpf Urine WBC (0-5) /hpf Urine Bacteria (NONE) Laboratory Results WBC 14.7 K/mm3 (4.0-10.5) H D 05/07/18 07:50 RBC 3.11 M/mm3 (4.2-5.4) L 05/07/18 07:50 Hgb 10.2 gm/dL (12.5-16.0) L 05/07/18 07:50 Hct 33.0 % (37.0-47.0) L 05/07/18 07:50 MCV 106.1 fl (78-100) H 05/07/18 07:50 MCH 32.8 pg (27-31) H 05/07/18 07:50 MCHC 30.9 g/dl (32-36) L 05/07/18 07:50 RDW 19.6 % (11.5-14.0) H 05/07/18 07:50 Plt Count 142 K/mm3 (150-450) L 05/07/18 07:50 MPV 13.9 fl (8-12.5) H 05/07/18 07:50 Immature Gran % (Auto) 0.40 % (0.001-0.429) 05/07/18 07:50 Immature Gran # (Auto) 0.06 K/mm3 (0.000-0.0310) H 05/07/18 07:50 Neutrophils % 85.7 % (42-75.0) H 05/07/18 07:50 Lymphocytes % 9.3 % (20-51) L 05/07/18 07:50 Monocytes % 3.3 % (0.0-9) 05/07/18 07:50 Eosinophils % 1.0 % (0.0-3.0) 05/07/18 07:50 Basophils % 0.3 % (0.0-1.0) 05/07/18 07:50 Nucleated RBC % 0.0 k/mm3 (0-1) 05/07/18 07:50 Neutrophils # 12.6 K/mm3 (1.3-6.0) H 05/07/18 07:50 Lymphocytes # 1.37 k/mm3 (1.5-3.5) L 05/07/18 07:50 Monocytes # 0.5 k/mm3 (0.0-1.0) 05/07/18 07:50 Eosinophils # 0.1 k/mm3 (0.0-0.7) 05/07/18 07:50 Absolute Basophils 0.0 k/mm3 (0.0-0.1) 05/07/18 07:50 pCO2 39.7 mmHg (32.0-45.0) 05/07/18 08:50 pO2 70.5 mmHg (83.0-108.0) L 05/07/18 08:50 HCO3 24.9 mmol/L (21.0-28.0) 05/07/18 08:50 Total CO2 26.2 mmol/L (19.0-24.0) H 05/07/18 08:50 Base Excess 0.4 mmol/L (-2.0-3.0) 05/07/18 08:50 ABG pH 7.42 (7.35-7.45) 05/07/18 08:50 ABG O2 Sat (Measured) 94.5 % (94.0-98.0) 05/07/18 08:50 Sodium 139 mmol/L (132-142) 05/07/18 07:50 Plasma Sodium 139 mmol/L (130-142) 05/07/18 07:50 Potassium 4.6 mmol/L (3.4-4.6) 05/07/18 07:50 Chloride 103 mmol/L (97-106) 05/07/18 07:50 Carbon Dioxide 27.7 mmol/L (24-32.6) 05/07/18 07:50 Anion Gap 12.9 mmol/L (6.8-13.8) 05/07/18 07:50 BUN 28 mg/dL (3-23) H 05/07/18 07:50 Creatinine 2.01 mg/dL (0.4-1.4) H 05/07/18 07:50 Est GFR (Non-Af Amer) 25 mL/min (60-130) L 05/07/18 07:50 BUN/Creatinine Ratio 13.9 (9.0-21.6) 05/07/18 07:50 Random Glucose 88 mg/dL (70-110) D 05/07/18 07:50 Calcium 7.5 mg/dL (7.9-10.9) L 05/07/18 07:50 Calcium Adj for Albumin 8.0 mg/dL (8.4-10.2) L 05/07/18 07:50 Total Bilirubin 0.8 mg/dL (0.0-1.1) 05/07/18 07:50 AST 19 U/L (0-48) 05/07/18 07:50 ALT 16 U/L (19-67) L 05/07/18 07:50 Alkaline Phosphatase 96 U/L (50-170) 05/07/18 07:50 Creatine Kinase 284 U/L (0-259) H 05/07/18 07:50 CK-MB (CK-2) 1.1 ng/mL (0.0-9.0) 05/07/18 07:50 Troponin I 0.143 ng/ml (0.00-0.10) H* 05/07/18 07:50 B-Natriuretic Peptide 7336 pg/mL (5-550) H 05/07/18 07:50 Total Protein 6.6 gm/dL (6.2-8.2) 05/07/18 07:50 Albumin 3.0 gm/dl (3.4-5.0) L 05/07/18 07:50 Urine Color Yellow 05/07/18 08:03 Urine Appearance Cloudy (CLEAR) 05/07/18 08:03 Urine pH 8.0 pH (5.0-7.0) H 05/07/18 08:03 Ur Specific Bernard 1.020 SP.GR. (1.005-1.010) 05/07/18 08:03 Urine Protein 100 mg/dL (NEGATIVE) H 05/07/18 08:03 Urine Glucose (UA) Negative mg/dL (NEGATIVE) 05/07/18 08:03 Urine Ketones Negative mg/dL (NEGATIVE) 05/07/18 08:03 Urine Blood 50 /ul (NEGATIVE) H 05/07/18 08:03 Urine Nitrate Positive (NEGATIVE) H 05/07/18 08:03 Urine Bilirubin Negative mg/dl (NEGATIVE) 05/07/18 08:03 Prot Sulfosalicylic Acd QNS 05/07/18 08:03 Urine Urobilinogen Normal EU/dl (NORMAL) 05/07/18 08:03 Ur Leukocyte Esterase 500 /ul (NEGATIVE) H 05/07/18 08:03 Urine RBC >50 /hpf (0-5) H 05/07/18 08:03 Urine WBC >50 /hpf (0-5) H 05/07/18 08:03 Ur Epithelial Cells 0-5 /hpf (0-5) 05/07/18 08:03 Urine Bacteria 3+ (NONE) H 05/07/18 08:03 Urine Culture Comments Culture to follow 05/07/18 08:03 CXR: Vascular congestion/Interstitial edema. Findings compatible with COPD Assessment/Plan - Assessment/Plan (1) Type II diabetes mellitus Assessment: Accu-check AC+HS and resume home dose of medications Consistent carb low sodium diet Problem: Chronic (2) Stage 4 chronic kidney disease Assessment: On adm Bun/cre 28/2.01, her dose of Lasix was adjusted recently by Dr. Nicolas she was been treated out-pt for CHf exacerbation Monitor CMP, avoid nephrotoxic agents Problem: Acute (3) Urinary tract infection Assessment: Seen on Urinalysis Pt report dysuria and urgency Continue with Levaquin Problem: Acute Qualifiers: Urinary tract infection type: acute cystitis Hematuria presence: without hematuria Qualified Code(s): N30.00 - Acute cystitis without hematuria (4) Anemia Problem: Chronic (5) COPD (chronic obstructive pulmonary disease) Assessment: it was report from the retirement pt was hypoxic Supplemented oxygen applied and spo2 improved Will continue with supplemented oxygen and wean soon as prudent Nebulizer treatments Problem: Acute (6) Hypoxia Assessment: supplemented oxygen and continue to monitor spo2 Problem: Acute (7) CHF (congestive heart failure) Assessment: Continue with lasix 40mg IV BID She had a dose Lasix 80mg once in ER Strict I.O and weight daily. Low sodium diet On adm BNP >7000K CXR Vascular congestion/ interstitial edema Problem: Acute Qualifiers: Heart failure type: other Qualified Code(s): I50.9 - Heart failure, unspecified (8) HTN (hypertension) Problem: Chronic Qualifiers: Hypertension type: essential hypertension Qualified Code(s): I10 - Essential (primary) hypertension (9) HLD (hyperlipidemia) Assessment: Resume home medications Problem: Chronic Qualifiers: (10) GERD (gastroesophageal reflux disease) Problem: Chronic Qualifiers: (11) Elevated troponin Assessment: On adm trop 0.143 likely due to trop leak and contributing chronic kidney disease and CHf exacerbation. pt denies chest pain EKG no ST depression Repeated troponin 0.017 Problem: Acute
[2018-05-07] MEDS ORDERED: clonazePAM 0.5 MG TABLET PO PRN (21:28)
[2018-05-07] MEDS ORDERED: traMADol HCL 50 MG TABLET PO SCH (21:30)
[2018-05-07] MEDS ORDERED: ALBUTEROL SULFATE/IPRATROPIUM 3 ML NEBU IH PRN (21:34)
[2018-05-07] MEDS ORDERED: GABAPENTIN 300 MG CAPSULE PO SCH (22:15)
[2018-05-07] MEDS ORDERED: ROSUVASTATIN CALCIUM 20 MG TABLET PO SCH (22:15)
[2018-05-07] MEDS ORDERED: ROSUVASTATIN CALCIUM 10 MG TABLET ONE (22:25)
[2018-05-07] MEDS: traMADol HCL 50 MG TABLET PO SCH (22:30)
[2018-05-07] MEDS ORDERED: POLYETHYLENE GLYCOL 3350 119 GM BTL PO PRN (22:30)
[2018-05-07] MEDS: CARVEDILOL 3.125 MG TABLET PO SCH (22:36)
[2018-05-07] MEDS: ACETAMINOPHEN 325 MG TABLET PO SCH (22:36)
[2018-05-07] MEDS ORDERED: ROSUVASTATIN CALCIUM 10 MG TABLET PO SCH (22:45)
[2018-05-08] MEDS: ALBUTEROL SULFATE/IPRATROPIUM 3 ML NEBU IH SCH ×2 (00:03→06:14)
[2018-05-08 04:24] LABS: Hematocrit 27.4 % (37.0-47.0); Hemoglobin 8.8 gm/dL (12.5-16.0); Mean Corpuscular Hemoglobin 33.1 pg (27-31); Mean Corpuscular Hgb Conc 32.1 g/dl (32-36); Mean Platelet Volume 12.3 fl (8-12.5); Neutrophil # 10.4 K/mm3 (1.3-6.0); Neutrophil % 88.8 % (42-75.0); Platelet Count 109 K/mm3 (150-450); Red Blood Count 2.66 M/mm3 (4.2-5.4); Red Cell Distribution Width 19.1 % (11.5-14.0); White Blood Count 11.7 K/mm3 (4.0-10.5)
[2018-05-08 04:43] LABS: Albumin * 2.5 gm/dl (3.4-5.0); Anion Gap 8.3 mmol/L (6.8-13.8); BUN/Creatinine Ratio 15.8 (9.0-21.6); Bilirubin, Total 0.4 mg/dL (0.0-1.1); Ca. Corrected For Albumin 7.7 mg/dL (8.4-10.2); Calcium * 6.8 mg/dL (7.9-10.9); Carbon Dioxide 31.9 mmol/L (24-32.6); Potassium 4.2 mmol/L (3.4-4.6); Total Protein 5.6 gm/dL (6.2-8.2)
[2018-05-08] MEDS ORDERED: LEVOTHYROXINE SODIUM 175 MCG TABLET PO SCH (07:00)
[2018-05-08] MEDS: CARVEDILOL 3.125 MG TABLET PO SCH (08:31)
[2018-05-08] MEDS: ACETAMINOPHEN 325 MG TABLET PO SCH (08:39)
[2018-05-08] MEDS: traMADol HCL 50 MG TABLET PO SCH (08:39)
[2018-05-08] MEDS ORDERED: POTASSIUM CHLORIDE 10 MEQ TABLET.SA PO SCH (09:00)
[2018-05-08] MEDS ORDERED: CHOLECALCIFEROL 1,000 UNIT CAPSULE PO SCH (09:00)
[2018-05-08] MEDS ORDERED: FAMOTIDINE 20 MG TABLET PO SCH (09:00)
[2018-05-08] MEDS ORDERED: VITS A AND D/WHITE PET/LANOLIN 60 APPL TUBE TP SCH (09:00)
[2018-05-08] MEDS ORDERED: SODIUM BICARBONATE 650 MG TABLET PO SCH (09:00)
[2018-05-08] MEDS ORDERED: MUPIROCIN 22 APPL TUBE TP SCH (09:00)
[2018-05-08] MEDS ORDERED: hydrALAZINE HCL 25 MG TABLET PO SCH (09:00)
[2018-05-08] MEDS ORDERED: SERTRALINE HCL 50 MG TABLET PO SCH (09:00)
[2018-05-08] MEDS ORDERED: CHOLESTYRAMINE/SUCROSE 4 GM PACKET PO SCH (09:00)
[2018-05-08] MEDS ORDERED: TIOTROPIUM BROMIDE 5 CAP INHALER IH SCH (09:00)
[2018-05-08] MEDS ORDERED: FUROSEMIDE 10 MG/ML VIAL IV SCH (09:00)
[2018-05-08] MEDS ORDERED: CALCIUM CARBONATE 500 MG TAB.CHEW PO SCH (09:00)
[2018-05-08] MEDS ORDERED: POLYETHYLENE GLYCOL 3350 119 GM BTL PO PRN (09:45)
--- NOTE | 2018-05-08 10:54 | DS ---
(1) Urinary tract infection Problem: Acute Qualifiers: Urinary tract infection type: acute cystitis Hematuria presence: without hematuria Qualified Code(s): N30.00 - Acute cystitis without hematuria (2) Acute kidney injury Problem: Acute (3) Stage 4 chronic kidney disease Problem: Chronic Description of Stay: ADMISSION DATE: 05/07/2018 DISCHARGE DATE: 05/08/2018 ADMISSION HPI by ERWIN Rousseau: 87 years old female adm to the hospital with reports of progressive shortness of breath, non productive cough and hypoxic while at the shelter. Per patient she stated her s/s was getting worse and she was seen by Dr Nicolas yesterday and had increased dose of Lasix. In ER CXR: vascular congestion/ interstitial edema and she had a dose of Lasix 80mg x1. ER spo2 94% on 3 l nasal cannula, she was initiated on Levaquin q8Hrs for UTI. Plan of care discussed with pt she verbalized understanding and agrees. HOSPITAL COURSE: The patient was admitted to the hospital under observation status for a UTI. She was treated with IV antibiotics during her admission and was transitioned to oral antibiotics renally dosed at discharge. She also has chronic pulmonary and cardiac comorbidities which complicate her situation. However, I do not believe she is an acute exacerbation of COPD nor do I believe she has decompensated CHF at this time. We will repeat bloodwork within the next few days to monitor. The patients hospital stay was uneventful and she was discharged back to [facility] in stable condition. FOLLOW-UP APPOINTMENTS: -Follow-up with Erp Analyst, Dr. Sosa, within the next week -Dr. Nicolas will follow-up with the patient at [facility] within the next week -Check CBC, BMP, BNP on 05/11/2018 NEW OR CHANGED MEDICATIONS: -Levaquin 250mg PO Q48H X 3 doses (renally dosed) -Albuterol nebs Q4H PRN SOB and/or wheezing (no Duonebs as patient is on Spiriva ) DISCONTINUED MEDICATIONS: -None Procedures Performed: none Results and Findings: Pending Mircobiology Results 05/07/18 09:44 Blood Blood Culture - Preliminary NO GROWTH 24 HOURS 05/07/18 09:20 Blood Blood Culture - Preliminary NO GROWTH 24 HOURS 05/08/18 08:15 Expectorate Sputum Sputum Culture - Preliminary 05/07/18 08:04 Urine,Clean Catch Urine Culture - Preliminary Gram Negative Bacilli Lab Pending Results 05/07/18 07:50: WBC 14.7 H D, RBC 3.11 L, Hgb 10.2 L, Hct 33.0 L, MCV 106.1 H, MCH 32.8 H, MCHC 30.9 L, RDW 19.6 H, Plt Count 142 L, MPV 13.9 H, Immature Gran % (Auto) 0.40, Immature Gran # (Auto) 0.06 H, Neutrophils % 85.7 H, Lymphocytes % 9.3 L, Monocytes % 3.3, Eosinophils % 1.0, Basophils % 0.3, Nucleated RBC % 0.0, Neutrophils # 12.6 H, Lymphocytes # 1.37 L, Monocytes # 0.5, Eosinophils # 0.1, Absolute Basophils 0.0 05/07/18 07:50: Sodium 139, Plasma Sodium 139, Potassium 4.6, Chloride 103, Carbon Dioxide 27.7, Anion Gap 12.9, BUN 28 H, Creatinine 2.01 H, Est GFR (Non- Af Amer) 25 L, BUN/Creatinine Ratio 13.9, Random Glucose 88 D, Calcium 7.5 L, Calcium Adj for Albumin 8.0 L, Total Bilirubin 0.8, AST 19, ALT 16 L, Alkaline Phosphatase 96, Creatine Kinase 284 H, CK-MB (CK-2) 1.1, Troponin I 0.143 H*, B- Natriuretic Peptide 7336 H, Total Protein 6.6, Albumin 3.0 L 05/07/18 08:03: Urine Color Yellow, Urine Appearance Cloudy, Urine pH 8.0 H, Ur Specific [place] 1.020, Urine Protein 100 H, Urine Glucose (UA) Negative, Urine Ketones Negative, Urine Blood 50 H, Urine Nitrate Positive H, Urine Bilirubin Negative, Prot Sulfosalicylic Acd QNS, Urine Urobilinogen Normal, Ur Leukocyte Esterase 500 H, Urine RBC >50 H, Urine WBC >50 H, Ur Epithelial Cells 0-5, Urine Bacteria 3+ H, Urine Culture Comments Culture to follow 05/07/18 08:50: pCO2 39.7, pO2 70.5 L, HCO3 24.9, Total CO2 26.2 H, Base Excess 0.4, ABG pH 7.42, ABG O2 Sat (Measured) 94.5 05/07/18 21:43: Troponin I Less than 0.017 05/08/18 04:15: WBC 11.7 H D, RBC 2.66 L, Hgb 8.8 L, Hct 27.4 L, MCV 103.0 H, MCH 33.1 H, MCHC 32.1, RDW 19.1 H, Plt Count 109 L, MPV 12.3, Immature Gran % ( Auto) 0.50 H, Immature Gran # (Auto) 0.06 H, Neutrophils % 88.8 H, Lymphocytes % 8.5 L, Monocytes % 2.1, Eosinophils % 0.0, Basophils % 0.1, Nucleated RBC % 0.0, Neutrophils # 10.4 H, Lymphocytes # 1.00 L, Monocytes # 0.3, Eosinophils # 0.0, Absolute Basophils 0.0 05/08/18 04:15: Sodium 138, Plasma Sodium 139, Potassium 4.2, Chloride 102, Carbon Dioxide 31.9, Anion Gap 8.3, BUN 38 H, Creatinine 2.40 H, Est GFR (Non- Af Amer) 20 L, BUN/Creatinine Ratio 15.8, Random Glucose 147 H D, Calcium 6.8 L , Calcium Adj for Albumin 7.7 L, Total Bilirubin 0.4, AST 13, ALT 14 L, Alkaline Phosphatase 84, Total Protein 5.6 L, Albumin 2.5 L Discharge Location: [facility] Disposition: SNF Condition: Stable Level of Care: SNF Discharge Activity: Activity as tolerated Discharge Diet: Consistent carbs, Low salt Long-Term Therapy: Physicial Therapy, Occupation Therapy Referrals: Yamilet Nicolas DO [Primary Care Provider] - Additional Patient Instructions (free text): -Follow-up with Erp Analyst, Dr. Sosa, July 29, 2018 at 9:30 AM in [place] -Dr. Nicolas will follow-up with the patient at [facility] within the next week -Check CBC, BMP, BNP on 05/11/2018 Prescriptions (Any new or edited meds): Albuterol Sulfate [Albuterol Sulfate 2.5 MG/0.5ML] 1 vial IH Q4H PRN #100 vial PRN Reason: Shortness Of Breath Levofloxacin [Levaquin] 250 mg PO Q48H #3 tablet Complete Home Medications List: Complete Home Medication List: Acetaminophen [Tylenol] 650 mg PO BID 01/17/15 Atorvastatin Calcium [Lipitor] 40 mg PO HS 01/17/15 clonazePAM [Klonopin] 0.5 mg PO BID PRN 03/07/15 Gabapentin [Neurontin] 600 mg PO HS 02/14/16 Tiotropium [place] [Spiriva] 18 mcg IH DAILY 02/14/16 Sodium Bicarbonate 1,300 mg PO TID 03/14/17 Dimethic/Zinc Ox/Vits A,D/Aloe [A and D Diaper Rash Cream] 113 gm TP DAILY 09/23 Polyethylene Glycol 3350 [Miralax] 17 gm PO DAILY PRN 09/23/17 Carvedilol [Coreg] 3.125 mg PO BID 03/20/18 Cholestyramine (with Sugar) [Questran Powder] 2 gm PO Q48H 03/20/18 traMADol HCL [Tramadol HCl] 50 mg PO Q4H 03/20/18 Calcium Carbonate 1,200 mg PO QAM 05/07/18 Cholecalciferol (Vitamin D3) [Vitamin D3] 1,000 unit PO DAILY 05/07/18 Famotidine 20 mg PO DAILY 05/07/18 Levothyroxine Sodium [Synthroid] 175 mcg PO QAM 05/07/18 Sertraline HCl [Zoloft] 25 mg PO DAILY 05/07/18 hydrALAZINE HCL [Apresoline] 25 mg PO TID 05/07/18 Albuterol Sulfate [Albuterol Sulfate 2.5 MG/0.5ML] 1 vial IH Q4H PRN #100 vial 05/08/18 Furosemide [Lasix] 20 mg PO DAILY tablet 05/08/18 Levofloxacin [Levaquin] 250 mg PO Q48H #3 tablet 05/08/18 Mupirocin [Bactroban] 1 appl TP BID tube 05/08/18 Amb Orders for Discharge: Basic Metabolic Panel Time Frame: 05/11/18, Location: None Selected CBC Time Frame: 05/11/18, Location: None Selected BNP * Time Frame: 05/11/18, Location: None Selected
[2018-05-08 11:10] VITALS: BP 140/59
[2018-05-08] MEDS ORDERED: GABAPENTIN 600 MG TABLET PO SCH (21:00)
[2018-05-08] MEDS ORDERED: ROSUVASTATIN CALCIUM 10 MG TABLET PO SCH (21:00)
[2018-05-09] MEDS ORDERED: FUROSEMIDE 20 MG TABLET PO SCH (09:00)
== END 2018-05-08 11:45 ==
LOC: ER 07:27 → MS 09:30 → INTOOBSV 09:30 → MS 10:12
PROVIDERS: ADMIT Internal Medicine; ATTEND Internal Medicine
DX: K21.9 Gastro-esophageal reflux disease without esophagitis; N17.9 Acute kidney failure, unspecified; I12.9 Hypertensive chronic kidney disease with stage 1 through stage 4 chronic kidney disease, or unspecified chronic kidney disease; E03.9 Hypothyroidism, unspecified; I50.9 Heart failure, unspecified; B96.20 Unspecified Escherichia coli [E. coli] as the cause of diseases classified elsewhere; E78.5 Hyperlipidemia, unspecified; N30.00 Acute cystitis without hematuria; J44.9 Chronic obstructive pulmonary disease, unspecified; Z22.322 Carrier or suspected carrier of Methicillin resistant Staphylococcus aureus; N18.4 Chronic kidney disease, stage 4 (severe); Z68.24 Body mass index [BMI] 24.0-24.9, adult; Z87.891 Personal history of nicotine dependence; D64.9 Anemia, unspecified
CPT/HCPCS: 36415; 36600; 71020; 71046; 80053; 81001; 82550; 82553; 82803; 83519; 83880; 84484; 85025; 87040; 87070; 87077; 87081; 87086; 87186; 93005; 94640; 94664; 96365; 96366; 96375; 96376; 99285; G0378

== ENCOUNTER 2018-09-07 19:49 | Observation (INO) | payer BC, MEDICARE ==
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
[2018-09-07 20:31] LABS: Hemoglobin 9.2 gm/dL (12.5-16.0); Mean Cell Volume 101.8 fl (78-100); Mean Corpuscular Hemoglobin 32.3 pg (27-31); Mean Corpuscular Hgb Conc 31.7 g/dl (32-36); Platelet Count 98 K/mm3 (150-450); Red Blood Count 2.85 M/mm3 (4.2-5.4); Red Cell Distribution Width 21.9 % (11.5-14.0); White Blood Count 11.9 K/mm3 (4.0-10.5)
[2018-09-07 20:46] LABS: Troponin I 0.036 ng/mL (0.00-0.10)
[2018-09-07 20:47] LABS: Albumin * 3.3 gm/dl (3.4-5.0); Anion Gap 10.7 mmol/L (6.8-13.8); BUN/Creatinine Ratio 24.7 (9.0-21.6); Bilirubin, Total 0.9 mg/dL (0.0-1.1); Ca. Corrected For Albumin 7.7 mg/dL (8.4-10.2); Calcium * 7.5 mg/dL (7.9-10.9); Potassium 3.7 mmol/L (3.4-4.6); Total Protein 6.2 gm/dL (6.2-8.2)
[2018-09-07] MEDS ORDERED: FUROSEMIDE 10 MG/ML VIAL IV ONE (21:17)
[2018-09-07 21:19] LABS: Total Cells Counted 100
[2018-09-07 21:29] LABS: Atypical (Reactive) Lymph 1 % (0-2); Band 2 % (0-2.0); Eosinophil 1 % (0-3); Immature Granulocyte 4 (0-1); Lymphocyte 10 % (20-51); Monocyte 8 % (0-9); Neutrophil 74 % (42-75); Neutrophil # 8.8 K/mm3 (1.3-6.0)
[2018-09-07 21:30] LABS: Platelet Estimate Decreased (NORMAL)
[2018-09-08] MEDS ORDERED: FUROSEMIDE 10 MG/ML VIAL IV ONE (06:01)
[2018-09-08] MEDS ORDERED: ACETAMINOPHEN 325 MG TABLET PO PRN (06:43)
[2018-09-08] MEDS ORDERED: POLYETHYLENE GLYCOL 3350 119 GM BTL PO PRN (06:43)
[2018-09-08] MEDS ORDERED: ALBUTEROL SULFATE 2.5 MG/0.5 ML VIAL.NEB IH PRN (06:43)
[2018-09-08] MEDS ORDERED: traMADol HCL 50 MG TABLET PO PRN (06:43)
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
[2018-09-08] MEDS ORDERED: LEVOTHYROXINE SODIUM 175 MCG TABLET PO SCH (07:00)
[2018-09-08] MEDS ORDERED: BUDESONIDE 0.5 MG/2 ML VIAL.NEB IH SCH (07:00)
[2018-09-08] MEDS ORDERED: LISINOPRIL 10 MG TABLET PO SCH (09:00)
[2018-09-08] MEDS ORDERED: TIOTROPIUM BROMIDE 5 CAP INHALER IH SCH (09:00)
[2018-09-08] MEDS ORDERED: VITS A AND D/WHITE PET/LANOLIN 60 APPL TUBE TP SCH (09:00)
[2018-09-08] MEDS ORDERED: CARVEDILOL 3.125 MG TABLET PO SCH (09:00)
[2018-09-08] MEDS ORDERED: clonazePAM 0.5 MG TABLET PO SCH (09:00)
[2018-09-08] MEDS ORDERED: FAMOTIDINE 20 MG TABLET PO SCH (09:00)
[2018-09-08] MEDS ORDERED: CALCIUM CARBONATE/VITAMIN D3 1 TAB TABLET PO SCH (09:00)
[2018-09-08] MEDS ORDERED: NYSTATIN 15 APPL TUBE TP SCH (09:00)
[2018-09-08] MEDS ORDERED: FERROUS SULFATE 325 MG TABLET PO SCH (09:00)
[2018-09-08] MEDS ORDERED: CHOLECALCIFEROL 1,000 UNIT CAPSULE PO SCH (09:00)
[2018-09-08] MEDS ORDERED: ACETAMINOPHEN 325 MG TABLET PO SCH (09:00)
[2018-09-08] MEDS ORDERED: SERTRALINE HCL 50 MG TABLET PO SCH (09:00)
[2018-09-08] MEDS ORDERED: FLUTICASONE PROPIONATE 120 SPRAY INHALER NS SCH (09:00)
[2018-09-08] MEDS: hydrALAZINE HCL 25 MG TABLET PO SCH ×2 (09:25→11:59)
[2018-09-08] MEDS ORDERED: LEVOFLOXACIN 500 MG TABLET PO SCH (11:00)
--- NOTE | 2018-09-08 11:12 | DS ---
(1) Acute bronchitis Problem: Acute Description of Stay: ADMISSION DATE: 09/07/2018 DISCHARGE DATE: 09/08/[address] Lam: Sepideh Hutchins, is an 87-year-old white female, with past medical history of COPD, chronic renal failure stage III, hypertension, hypothyroidism, who was admitted on 09/07/2018 because of shortness of breath and cough. The patient is a resident of [facility] and she was brought to the emergency room because of increasing shortness of breath. As per patient she has been coughing and felt that she had been having the chills and fever. Her voice also got hoarse associated with cough mostly dry. By the afternoon of admission she was more short of breath. She said that she was started on antibiotic ? and the next thing she knew she was in the hospital. In the emergency room she was found to have an elevated white blood cell count, macrocytic anemia, an elevated BNP in the 10,000, and a CXR which showed pulmonary congestion but cannot rule out superimposed infection. She was then admitted for further treatment. HOSPITAL COURSE: The patient was admitted to the hospital for acute subjective SOB after having an episode yesterday evening while at [facility] (her long-term care facility) where she felt like she could catch her breath. The patient denies any more significant SOB at the time of discharge and states that she just has a cough and her voice is hoarse and her throat is sore, especially when she swallows. Her rapid strep test was negative. It is felt she likely has an acute bronchitis and likely was experiencing bronchospasms prior to admission. We will treat her with 5 days of antibiotics which will also assist with decreasing pulmonary inflammation related to the bronchitis. The patient has complained of a cough, sore throat and hoarse voice for many years. I have stopped her Lisinopril and switched her to Losartan to see if it is possible her symptoms are CARLIN-I side effects. I have also increased her ranitidine up to BID and will monitor for improvement in her symptoms. The patient was discharged back to [facility] in stable condition. Procedures Performed: none Results and Findings: Lab Pending Results 09/07/18 20:23: WBC 11.9 H, RBC 2.85 L, Hgb 9.2 L, Hct 29.0 L, MCV 101.8 H, MCH 32.3 H, MCHC 31.7 L, RDW 21.9 H, Plt Count 98 L, Neutrophils % (Manual) 74, Band Neuts % (Manual) 2, Lymphocytes % (Manual) 10 L, Monocytes % (Manual) 8, Eosinophils % (Manual) 1, Immature Granulocytes 4 H, Neutrophils # (Manual) 8.8 H, Lymphocytes # (Manual) 1.2 L, Monocytes # (Manual) 1.0, Eosinophils # (Manual) 0.1, Atypic/Reactive Lymphs 1, Platelet Estimate Decreased L 09/07/18 20:23: Sodium 138, Plasma Sodium 138, Potassium 3.7, Chloride 109 H, Carbon Dioxide 22.0 L, Anion Gap 10.7, BUN 36 H, Creatinine 1.46 H, Est GFR (Non-Af Amer) 36 L, BUN/Creatinine Ratio 24.7 H, Random Glucose 112 H, Calcium 7.5 L, Calcium Adj for Albumin 7.7 L, Total Bilirubin 0.9, AST 31, ALT 56, Alkaline Phosphatase 90, Troponin I 0.036, B-Natriuretic Peptide 83919 H, Total Protein 6.2, Albumin 3.3 L 09/08/18 10:30: Influenza Type A Ag Negative, Influenza Type B Ag Negative 09/08/18 10:30: Group A Strep Rapid Negative Discharge Location: [facility] Disposition: Intermediate Care Facility ICF Condition: Stable Level of Care: ICF Discharge Activity: Activity as tolerated Discharge Diet: Consistent carbs, Low salt, Low fat/chol, Resume usual diet Referrals: Yamilet Nicolas DO [Primary Care Provider] - Additional Patient Instructions (free text): Resume prior medications and Part B therapies, PT/OT to eval and treat. -Dr. Nicolas will follow-up and see the patient during [facility] rounds on 09/11/2018 -Check labs including CBC, CMP, BNP and magnesium level on 09/10/2018 Prescriptions (Any new or edited meds): Losartan Potassium 50 mg PO DAILY #30 tablet Ranitidine HCl [Heartburn Relief] 150 mg PO BID #60 tab traMADol HCL [Tramadol HCl] 50 mg PO TID PRN #30 tab PRN Reason: pain Complete Home Medications List: Complete Home Medication List: Acetaminophen [Tylenol] 650 mg PO BID 01/17/15 Atorvastatin Calcium [Lipitor] 40 mg PO HS 01/17/15 Gabapentin [Neurontin] 600 mg PO HS 02/14/16 Tiotropium [place] [Spiriva] 18 mcg IH DAILY 02/14/16 Sodium Bicarbonate 650 mg PO TID 03/14/17 Dimethic/Zinc Ox/Vits A,D/Aloe [A and D Diaper Rash Cream] 113 gm TP DAILY 09/23/17 Polyethylene Glycol 3350 [Miralax] 17 gm PO DAILY PRN 09/23/17 Carvedilol [Coreg] 3.125 mg PO BID 03/20/18 Calcium Carbonate 1,200 mg PO QAM 05/07/18 Cholecalciferol (Vitamin D3) [Vitamin D3] 1,000 unit PO DAILY 05/07/18 Levothyroxine Sodium [Synthroid] 175 mcg PO QAM 05/07/18 Sertraline HCl [Zoloft] 75 mg PO DAILY 05/07/18 hydrALAZINE HCL [Apresoline] 25 mg PO TID 05/07/18 Albuterol Sulfate [Albuterol Sulfate 2.5 MG/0.5ML] 1 vial IH Q4H PRN #100 vial 05/08/18 Darbepoetin Moise in [place] [Aranesp] 100 mcg SC Q28D 07/23/18 Ferrous Sulfate 325 mg PO BID 07/23/18 Furosemide [Lasix] 40 mg PO DAILY 07/23/18 Loratadine 10 mg PO HS 07/23/18 acetaminophen 325 mg tablet 325 mg PO Q4H PRN 09/02/18 budesonide 0.5 mg/2 mL suspension for nebulization 2 ml IH BID 09/02/18 cholestyramine (with sugar) 4 gram oral powder 4 g PO BID PRN g 09/02/18 clonazepam 0.5 mg tablet 0.5 mg PO BID 09/02/18 fluticasone 50 mcg/actuation nasal spray,suspension 2 spray GUICHO BID g 09/02/18 Carbamide Peroxide [Debrox] 10 drop OT BID PRN 09/07/18 Levofloxacin [Levaquin] 250 mg PO DAILY #5 tablet 09/08/18 Losartan Potassium 50 mg PO DAILY #30 tablet 09/08/18 Ranitidine HCl [Heartburn Relief] 150 mg PO BID #60 tab 09/08/18 traMADol HCL [Tramadol HCl] 50 mg PO TID PRN #30 tab 09/08/18 Amb Orders for Discharge: CBC Time Frame: 09/10/18, Location: Laboratory Comprehensive Metabolic Panel Time Frame: 09/10/18, Location: Laboratory Magnesium Time Frame: 09/10/18, Location: Laboratory BNP * Time Frame: 09/10/18, Location: Laboratory
[2018-09-08 14:51] VITALS: BP 102/40
[2018-09-08] MEDS ORDERED: GABAPENTIN 600 MG TABLET PO SCH (21:00)
[2018-09-08] MEDS ORDERED: LORATADINE 10 MG TABLET PO SCH (21:00)
[2018-09-08] MEDS ORDERED: ROSUVASTATIN CALCIUM 20 MG TABLET PO SCH (21:00)
[2018-09-09] MEDS ORDERED: LEVOFLOXACIN 250 MG TABLET PO SCH (11:00)
== END 2018-09-08 13:45 ==
LOC: ER 19:49 → MS 21:33 → INTOOBSV 21:33 → MS 22:24
PROVIDERS: ADMIT Internal Medicine; ATTEND Internal Medicine
DX: R06.02 Shortness of breath
CPT/HCPCS: 36415; 71020; 71046; 80053; 83519; 83880; 84484; 85025; 87081; 87400; 87430; 87449; 93005; 94640; 94664; 94760; 96374; 96376; 99285

== ENCOUNTER 2018-11-06 11:08 | Observation (INO) ==
[2018-11-06 12:14] LABS: Mean Cell Volume 103.7 fl (78-100); Mean Corpuscular Hgb Conc 32.8 g/dl (32-36); Red Blood Count 1.91 M/mm3 (4.2-5.4); Red Cell Distribution Width 21.4 % (11.5-14.0); White Blood Count 3.4 K/mm3 (4.0-10.5)
[2018-11-06 12:25] LABS: Hematocrit 19.8 % (37.0-47.0); Hemoglobin 6.5 gm/dL (12.5-16.0)
[2018-11-06 12:26] LABS: Platelet Count 43 K/mm3 (150-450)
[2018-11-06 12:27] LABS: Total Cells Counted 100
[2018-11-06 13:26] LABS: Band 5 % (0-2.0); Eosinophil 3 % (0-3); Hypochromia 2+; Lymphocyte 29 % (20-51); Macrocytosis 2+; Monocyte 4 % (0-9); Neutrophil 59 % (42-75); Ovalocytes 2+; Platelet Estimate Decreased (NORMAL); Schistocytes 3+; Target Cells 1+; Tear Drop Cells 2+
[2018-11-06 15:23] LABS: Iron 60 mcg/dL (35-120); Transferrin Sat. (% Sat.) 45 % (15-55)
[2018-11-06 15:51] LABS: Vitamin B12 633 pg/mL (193-986)
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
[2018-11-06] MEDS ORDERED: clonazePAM 0.5 MG TABLET PO PRN (17:52)
[2018-11-06] MEDS ORDERED: traMADol HCL 50 MG TABLET PO SCH (18:00)
[2018-11-06] MEDS: BUDESONIDE 0.5 MG/2 ML VIAL.NEB IH SCH (18:13)
[2018-11-06] MEDS ORDERED: FUROSEMIDE 10 MG/ML VIAL IV ONE (20:00)
[2018-11-06] MEDS: hydrALAZINE HCL 25 MG TABLET PO SCH (20:50)
[2018-11-06] MEDS: CARVEDILOL 3.125 MG TABLET PO SCH (20:51)
[2018-11-06] MEDS ORDERED: FAMOTIDINE 20 MG TABLET PO SCH (21:00)
[2018-11-06] MEDS ORDERED: BUDESONIDE 0.5 MG/2 ML VIAL.NEB IH SCH (21:00)
[2018-11-07 00:59] LABS: Hematocrit 34.6 % (37.0-47.0); Hemoglobin 11.7 gm/dL (12.5-16.0)
[2018-11-07] MEDS: hydrALAZINE HCL 25 MG TABLET PO SCH ×2 (02:27→09:28)
[2018-11-07] MEDS: BUDESONIDE 0.5 MG/2 ML VIAL.NEB IH SCH (06:10)
[2018-11-07] MEDS ORDERED: LEVOTHYROXINE SODIUM 150 MCG TABLET PO SCH (07:00)
--- NOTE | 2018-11-07 08:39 | DS ---
(1) Acute on chronic anemia Problem: Acute (2) Anemia of chronic disease Problem: Acute Description of Stay: Sepideh is an 88 yo female admitted with acute on chronic anemia of chronic disease. She was found to have a hemoglobin of 6.5. As her hemoglobin was significantly low she was sent from [facility] to the hospital for a blood transfusion. She was admitted to observation for blood transfusion as she would not be able to get 2 units through the annex. She did well and had no difficulties with transfusion. Her hemoglobin today is 11.7. She feels well and will be discharged back to [facility]. Procedures Performed: none Results and Findings: Lab Pending Results 11/06/18 09:50: WBC 3.4 L, RBC 1.91 L, Hgb 6.5 L* D, Hct 19.8 L* D, MCV 103.7 H, MCH 34.0 H, MCHC 32.8, RDW 21.4 H, Plt Count 43 L, Neutrophils % (Manual) 59, Band Neuts % (Manual) 5 H, Lymphocytes % (Manual) 29, Monocytes % (Manual) 4, Eosinophils % (Manual) 3, Neutrophils # (Manual) 2.0, Lymphocytes # (Manual) 1.0 L, Monocytes # (Manual) 0.1, Eosinophils # (Manual) 0.1, Platelet Estimate Decreased L, Hypochromasia 2+, Macrocytosis 2+, Target Cells 1+, Tear Drop Cells 2+, Ovalocytes 2+, Elliptocytes 1+, Schistocytes 3+ 11/06/18 14:45: Blood Type A Positive, Antibody Screen Negative, Crossmatch See Detail 11/06/18 14:45: Vitamin B12 633, Folate Greater than 20.0 11/06/18 14:45: Iron 60, TIBC 132 L, Transferrin % Sat 45 11/06/18 14:45: Absolute Retic 17.3000, Percent Retic 1.3, Immature Retic Fraction 18.4 H, Retic Hgb Content 34.9 11/07/18 00:55: Hgb 11.7 L, Hct 34.6 L Discharge Location: [facility] Disposition: Intermediate Care Facility ICF Condition: Good Level of Care: ICF Discharge Activity: Activity as tolerated Discharge Diet: General/regular food Referrals: Kym Acosta MD [Primary Care Provider] - (Routine follow up) Problem Oriented Discharge Instructions to Patient/Family: Anemia, Nonspecific Additional Patient Instructions (free text): Resume all prior services and medications as prior. Complete Home Medications List: Complete Home Medication List: Acetaminophen [Tylenol] 650 mg PO BID 01/17/15 Atorvastatin Calcium [Lipitor] 40 mg PO HS 01/17/15 Gabapentin [Neurontin] 600 mg PO HS 02/14/16 Tiotropium [place] [Spiriva] 18 mcg IH DAILY 02/14/16 Sodium Bicarbonate 650 mg PO TID 03/14/17 Dimethic/Zinc Ox/Vits A,D/Aloe [A and D Diaper Rash Cream] 113 gm TP DAILY 09/23/17 Polyethylene Glycol 3350 [Miralax] 17 gm PO DAILY PRN 09/23/17 Carvedilol [Coreg] 3.125 mg PO BID 03/20/18 Calcium Carbonate 1,200 mg PO QAM 05/07/18 Cholecalciferol (Vitamin D3) [Vitamin D3] 1,000 unit PO DAILY 05/07/18 Sertraline HCl [Zoloft] 75 mg PO DAILY 05/07/18 hydrALAZINE HCL [Apresoline] 25 mg PO TID 05/07/18 Albuterol Sulfate [Albuterol Sulfate 2.5 MG/0.5ML] 1 vial IH Q4H PRN #100 vial 05/08/18 Darbepoetin Moise in [place] [Aranesp] 100 mcg SC Q28D 07/23/18 Furosemide [Lasix] 40 mg PO DAILY 07/23/18 Loratadine 10 mg PO HS 07/23/18 acetaminophen 325 mg tablet 325 mg PO Q4H PRN 09/02/18 budesonide 0.5 mg/2 mL suspension for nebulization 2 ml IH BID 09/02/18 cholestyramine (with sugar) 4 gram oral powder 4 g PO BID PRN g 09/02/18 clonazepam 0.5 mg tablet 0.5 mg PO BID 09/02/18 fluticasone 50 mcg/actuation nasal spray,suspension 2 spray GUICHO BID g 09/02/18 Carbamide Peroxide [Debrox] 10 drp OTIC (EAR) BID PRN 09/07/18 Losartan Potassium 50 mg PO DAILY #30 tab 09/08/18 Ranitidine HCl [Heartburn Relief] 150 mg PO BID #60 tab 09/08/18 traMADol HCL [Tramadol HCl] 50 mg PO TID PRN #30 tab 09/08/18 levothyroxine 150 mcg capsule 150 mcg PO DAILY #50 cap 10/23/18 nystatin 100,000 unit/gram topical powder 1 applic TP BID #30 g 10/29/18 L.acidoph,Paracasei, B.lactis [Probiotic] 1 ea PO DAILY 11/06/18 Loperamide HCl [Imodium] 2 mg PO QID PRN 11/06/18 Methylcellulose [Citrucel] 1 tbs PO DAILY 11/06/18
[2018-11-07] MEDS ORDERED: SERTRALINE HCL 50 MG TABLET PO SCH (09:00)
[2018-11-07] MEDS ORDERED: LOSARTAN POTASSIUM 50 MG TABLET PO SCH (09:00)
[2018-11-07] MEDS ORDERED: TIOTROPIUM BROMIDE 5 CAP INHALER IH SCH (09:00)
[2018-11-07] MEDS ORDERED: FUROSEMIDE 40 MG TABLET PO SCH (09:00)
[2018-11-07] MEDS: CARVEDILOL 3.125 MG TABLET PO SCH (09:28)
[2018-11-07 11:08] VITALS: BP 136/76
== END 2018-11-07 11:18 ==
LOC: MS 11:08 → LAB 11:08
PROVIDERS: ADMIT Internal Medicine; ATTEND Internal Medicine
DX: D64.89 Other specified anemias
CPT/HCPCS: 36415; 36430; 82607; 82746; 83540; 83550; 85014; 85018; 85025; 85045; 86850; 86900; 87081; 94640; 94664; 96374; G0378; G0379; P9016

== ENCOUNTER 2018-12-16 08:35 | Inpatient (IN) ==
[2018-12-16] MEDS ORDERED: NORMAL SALINE 1,000 ML IV ONE (08:51)
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
[2018-12-16 09:52] LABS: Hematocrit 31.5 % (37.0-47.0); Hemoglobin 9.9 gm/dL (12.5-16.0); Mean Cell Volume 101.3 fl (78-100); Mean Corpuscular Hemoglobin 31.8 pg (27-31); Mean Corpuscular Hgb Conc 31.4 g/dl (32-36); Platelet Count 166 K/mm3 (150-450); Red Blood Count 3.11 M/mm3 (4.2-5.4); Red Cell Distribution Width 20.5 % (11.5-14.0)
[2018-12-16 10:00] LABS: Total Cells Counted 100
[2018-12-16 10:02] LABS: Band 36 % (0-2.0); Lymphocyte 19 % (20-51); Monocyte 3 % (0-9); Neutrophil 42 % (42-75); Neutrophil # 5.5 K/mm3 (1.3-6.0)
[2018-12-16 10:03] LABS: Platelet Estimate Normal (NORMAL); RBC Morphology Normal (NORMAL)
[2018-12-16 10:12] LABS: Albumin * 3.1 gm/dl (3.4-5.0); Anion Gap 21.9 mmol/L (6.8-13.8); BUN/Creatinine Ratio 22.7 (9.0-21.6); Bilirubin, Total 0.5 mg/dL (0.0-1.1); Ca. Corrected For Albumin 8.2 mg/dL (8.4-10.2); Calcium * 7.8 mg/dL (7.9-10.9); Carbon Dioxide 11.3 mmol/L (24-32.6); Potassium 4.2 mmol/L (3.4-4.6); Total Protein 6.2 gm/dL (6.2-8.2)
[2018-12-16 10:44] LABS: Urine Bilirubin Negative (NEGATIVE); Urine Blood Negative /ul (NEGATIVE); Urine Ketone Negative (NEGATIVE); Urine Nitrite Negative (NEGATIVE); Urine Protein 100 mg/dL (NEGATIVE); Urine Specific Gravity 1.025 SP.GR. (1.005-1.010); Urine Urobilinogen Normal (NORMAL); Urine pH 5.5 pH (5.0-7.0)
[2018-12-16 11:01] LABS: Urine Appearance Clear (CLEAR); Urine Color Yellow
[2018-12-16 11:02] LABS: Urine Bacteria 2+; Urine RBC None Seen /hpf (0-5); Urine WBC >50 /hpf (0-5)
[2018-12-16] MEDS ORDERED: cefTRIAXone SODIUM 1,000 MG/100 ML BAG IV ONE (11:41)
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
--- NOTE | 2018-12-16 13:57 | ANES ---
Anesthesia Procedure Note Procedure Note: ANESTHESIA PROCEDURE NOTE Date of procedure: 12/16/2018. Time of procedure: 1340. Performed by: Dallin Veras CRNA [employer] Supervisor: None . Preprocedure diagnosis: Dehydration. Difficult IV access. Post procedure diagnosis: Same. Procedure: IV start Indications: Difficult IV access. Findings: 22-gauge Angiocath IV started in patient's left wrist EBL: Minimal. Fluids: N/A. Specimen: N/A. Post procedure condition: The patient tolerated the procedure well. No complications were noted. Thank you for this consultation Dallin Veras CRNA
[2018-12-16] MEDS: NORMAL SALINE 1,000 ML IV PRN (16:01)
[2018-12-17 01:13] LABS: Hemoglobin 9.2 gm/dL (12.5-16.0); Mean Cell Volume 101.8 fl (78-100); Mean Corpuscular Hemoglobin 32.3 pg (27-31); Mean Corpuscular Hgb Conc 31.7 g/dl (32-36); Platelet Count 209 K/mm3 (150-450); Red Blood Count 2.85 M/mm3 (4.2-5.4); White Blood Count 11.7 K/mm3 (4.0-10.5)
[2018-12-17 01:26] LABS: Anion Gap 22.8 mmol/L (6.8-13.8); BUN/Creatinine Ratio 20.1 (9.0-21.6); Calcium * 7.3 mg/dL (7.9-10.9); Carbon Dioxide 9.4 mmol/L (24-32.6); Estimated Creat Clear 6.4; Potassium 4.2 mmol/L (3.4-4.6)
[2018-12-17 01:44] LABS: Total Cells Counted 100
[2018-12-17 01:46] LABS: Atypical (Reactive) Lymph 1 % (0-2); Band 28 % (0-2.0); Basophil 1 % (0-1); Eosinophil 2 % (0-3); Immature Granulocyte 2 (0-1); Lymphocyte 16 % (20-51); Monocyte 4 % (0-9); Neutrophil 46 % (42-75); Neutrophil # 5.4 K/mm3 (1.3-6.0)
[2018-12-17 01:47] LABS: Giant Platelets Trace; Platelet Estimate Normal (NORMAL)
[2018-12-17 01:48] LABS: Poikilocytosis Trace
[2018-12-17 01:49] LABS: Dohle Bodies Trace; Toxic Granulation Trace
[2018-12-17 06:09] LABS: Albumin * 2.7 gm/dl (3.4-5.0); Anion Gap 22.9 mmol/L (6.8-13.8); BUN/Creatinine Ratio 19.7 (9.0-21.6); Bilirubin, Total 0.4 mg/dL (0.0-1.1); Ca. Corrected For Albumin 7.9 mg/dL (8.4-10.2); Calcium * 7.2 mg/dL (7.9-10.9); Carbon Dioxide 9.3 mmol/L (24-32.6); Potassium 4.2 mmol/L (3.4-4.6); Total Protein 5.6 gm/dL (6.2-8.2)
[2018-12-17] MEDS: NORMAL SALINE 1,000 ML IV PRN (06:33)
[2018-12-17] MEDS: LEVOTHYROXINE SODIUM 125 MCG TABLET PO SCH (06:35)
[2018-12-17] MEDS: SERTRALINE HCL 50 MG TABLET PO SCH (08:12)
[2018-12-17] MEDS: LOSARTAN POTASSIUM 50 MG TABLET PO SCH (09:22)
[2018-12-17] MEDS: hydrALAZINE HCL 25 MG TABLET PO SCH ×2 (09:22→16:44)
[2018-12-17] MEDS: CARVEDILOL 3.125 MG TABLET PO SCH ×2 (09:22→21:04)
[2018-12-17] MEDS: RANITIDINE HCL 15 MG/ML BTL PO SCH ×2 (09:23→21:05)
--- NOTE | 2018-12-17 13:35 | PN ---
Subjective - Date and Time Seen Date: 12/17/18 Time: 09:00 Subjective Narrative: Altered mental status Objective - Review of Systems Generalized/Overall Review: Reports: Weakness Misc: All systems neg except as marked - Vitals Vitals: Last Vital Signs Temp 36.5 C 12/17/18 11:11 Pulse 108 H 12/17/18 11:11 Resp 16 12/17/18 11:11 BP 123/80 12/17/18 11:11 Pulse Ox 96 12/17/18 11:11 - Abnormal Lab Findings Abnormal Lab Findings: Abnormal Lab Results 12/17/18 12/17/18 12/17/18 Range/Units 01:04 01:04 05:00 WBC 11.7 H (4.0-10.5) K/mm3 RBC 2.85 L (4.2-5.4) M/mm3 Hgb 9.2 L (12.5-16.0) gm/dL Hct 29.0 L (37.0-47.0) % MCV 101.8 H (78-100) fl MCH 32.3 H (27-31) pg MCHC 31.7 L (32-36) g/dl RDW 21.0 H (11.5-14.0) % Band Neuts % (Manual) 28 H (0-2.0) % Lymphocytes % (Manual) 16 L (20-51) % Immature Granulocytes 2 H (0-1) Chloride 111 H 112 H (97-106) mmol/L Carbon Dioxide 9.4 L 9.3 L (24-32.6) mmol/L Anion Gap 22.8 H 22.9 H (6.8-13.8) mmol/L BUN 94 H 92 H (3-23) mg/dL Creatinine 4.68 H D 4.67 H (0.4-1.4) mg/dL Est GFR (Non-Af Amer) 9 L 9 L (60-130) mL/min Calcium 7.3 L 7.2 L (7.9-10.9) mg/dL Calcium Adj for Albumin 7.9 L (8.4-10.2) mg/dL ALT 13 L (19-67) U/L B-Natriuretic Peptide 6097 H (5-550) pg/mL Total Protein 5.6 L (6.2-8.2) gm/dL Albumin 2.7 L (3.4-5.0) gm/dl - Exam Constitutional: Present: Alert, Cooperative, Well developed, Well nourished, No distress, Lethargic, Elderly ENT Exam: Present: hearing grossly normal, dry mucous membranes Neck: Present: supple, normal inspection, trachea midline. Absent: lymphadenopathy (R), lymphadenopathy (L) Respiratory: Present: lungs clear, No wheezing. Absent: crackles, rhonchi Cardiovascular/Chest: Present: normal peripheral pulses, regular rate, rhythm, no edema Abdomen: Present: Normal bowel sounds, soft Extremity: Present: no pedal edema Skin Exam: Present: normal color, warm/dry Appearance: Present: impaired insight Eye contact: Present: cooperative Assessment/Plan Plan Narrative: 88-year-old female presenting with altered mental status, UTI, and ADAM on CKD. - Problems/Diagnosis (1) Acute on chronic renal failure Problem: Acute Qualifiers: Acute renal failure type: unspecified Chronic kidney disease stage: stage 4 (severe) Qualified Code(s): N17.9 - Acute kidney failure, unspecified; N18.4 - Chronic kidney disease, stage 4 (severe) Narrative: Renal function is worsening spoke with her technical illustrator Dr. Elvin Stone at [facility] in [place]. He states that in August her creatinine was 1.4 so this is a big change from her baseline. Please recommendations we will rule out obstruction and get a kidney ultrasound. She i s currently making urine though it is uncertain how much because she is incontinent but but has had several episodes of incontinence. Bladder scan showed less than 100 cc of urine. We will continue with IV fluid hydration and monitoring of her renal function. I spoke with 2 daughters who are at bedside this morning, Olivia is the medical power of attorney general. I mentioned the possibility of dialysis if her renal function continues to worsen or does not improve. Olivia stated that she would have to discuss it with her siblings. (2) Sepsis Problem: Acute Qualifiers: Sepsis type: sepsis due to unspecified organism Qualified Code(s): A41.9 - Sepsis, unspecified organism Narrative: Her urine is positive for gram-negative bacilli. Continue with ceftriaxone and await final cultures and sensitivities. White count is downtrending. (3) Urinary tract infection Problem: Acute Qualifiers: Urinary tract infection type: acute cystitis Hematuria presence: without hematuria Qualified Code(s): N30.00 - Acute cystitis without hematuria Narrative: Urine culture positive for gram-negative bacilli. Continue with ceftriaxone and await final cultures and sensitivities. (4) Dehydration Problem: Acute Narrative: Continue with IV fluid hydration. (5) HTN (hypertension) Problem: Chronic Qualifiers: Hypertension type: essential hypertension Qualified Code(s): I10 - Essential (primary) hypertension Narrative: Stable continue with home medications. (6) Altered mental status Problem: Acute Qualifiers: Altered mental status type: disorientation Qualified Code(s): R41.0 - Disorientation, unspecified Narrative: She continues to have altered mentation. Possibly secondary to the urinary tract infection. This afternoon the patient has woken up a little bit more and is able to tolerate oral intake. Continue ceftriaxone.
[2018-12-18] MEDS: hydrALAZINE HCL 25 MG TABLET PO SCH ×2 (00:27→09:56)
[2018-12-18] MEDS: NORMAL SALINE 1,000 ML IV PRN (04:22)
[2018-12-18] MEDS: LEVOTHYROXINE SODIUM 125 MCG TABLET PO SCH (06:56)
--- NOTE | 2018-12-18 07:10 | ANES ---
Anesthesia Procedure Note Procedure Note: ANESTHESIA PROCEDURE NOTE Date of Procedure: 12/18/2018. Time of procedure: 0400. Performed by: Connor Chester CRNA Obstetrician: None. Preprocedure diagnosis: Difficult IV access. Post procedure diagnosis: Same. Procedure: Peripheral vein IV insertion. Indications: This 88-year-old female in need of a IV for IV therapy. Findings: See below. Details of the procedure: Skin over the intended target site was cleansed with alcohol. A 22-gauge IV catheter was inserted into a right hand vein. A sterile dressing was applied over the insertion site. The line was then flushed with sterile saline solution. EBL: Minimal. Fluids: N/A. Specimen: N/A. Post procedure condition: The patient tolerated the procedure well. No complications were noted. Thank you for this consultation. Connor Chester CRNA
[2018-12-18] MEDS ORDERED: MEROPENEM 500 MG in NORMAL SALINE 100 ML IV SCH (09:30)
[2018-12-18] MEDS ORDERED: SACCHAROMYCES BOULARDII 250 MG CAPSULE PO SCH (09:30)
[2018-12-18 09:36] LABS: Hematocrit 30.3 % (37.0-47.0); Hemoglobin 9.4 gm/dL (12.5-16.0); Mean Cell Volume 104.5 fl (78-100); Mean Corpuscular Hemoglobin 32.4 pg (27-31); Mean Platelet Volume 13.1 fl (8-12.5); NRBC# 0.1 k/mm3 (0-1); Neutrophil # 9.8 K/mm3 (1.3-6.0); Neutrophil % 76.9 % (42-75.0); Platelet Count 189 K/mm3 (150-450); Red Cell Distribution Width 19.9 % (11.5-14.0); White Blood Count 12.8 K/mm3 (4.0-10.5)
[2018-12-18] MEDS: CARVEDILOL 3.125 MG TABLET PO SCH (09:57)
[2018-12-18] MEDS: LOSARTAN POTASSIUM 50 MG TABLET PO SCH (09:58)
[2018-12-18] MEDS: SERTRALINE HCL 50 MG TABLET PO SCH (09:58)
[2018-12-18] MEDS: RANITIDINE HCL 15 MG/ML BTL PO SCH (09:59)
[2018-12-18 11:20] LABS: Anion Gap 20.6 mmol/L (6.8-13.8); BUN/Creatinine Ratio 20.7 (9.0-21.6); Bilirubin, Total 0.3 mg/dL (0.0-1.1); Ca. Corrected For Albumin 7.7 mg/dL (8.4-10.2); Calcium * 7.2 mg/dL (7.9-10.9); Carbon Dioxide 10.9 mmol/L (24-32.6); Potassium 4.5 mmol/L (3.4-4.6); Total Protein 6.2 gm/dL (6.2-8.2)
[2018-12-18] MEDS ORDERED: HEPARIN SODIUM,PORCINE 5,000 UNITS/ML VIAL SC SCH (11:30)
--- NOTE | 2018-12-18 12:08 | DS ---
(1) Acute on chronic renal failure Problem: Acute Qualifiers: Acute renal failure type: unspecified Chronic kidney disease stage: stage 4 (severe) Qualified Code(s): N17.9 - Acute kidney failure, unspecified; N18.4 - Chronic kidney disease, stage 4 (severe) (2) Sepsis Problem: Acute Qualifiers: Sepsis type: sepsis due to unspecified organism Qualified Code(s): A41.9 - Sepsis, unspecified organism (3) Urinary tract infection Problem: Acute Qualifiers: Urinary tract infection type: acute cystitis Hematuria presence: without hematuria Qualified Code(s): N30.00 - Acute cystitis without hematuria (4) Dehydration Problem: Acute (5) HTN (hypertension) Problem: Chronic Qualifiers: Hypertension type: essential hypertension Qualified Code(s): I10 - Essential (primary) hypertension (6) Altered mental status Problem: Acute Qualifiers: Altered mental status type: disorientation Qualified Code(s): R41.0 - Disorientation, unspecified Description of Stay: 88-year-old female with a past medical history of anxiety, congestive heart failure, chronic kidney disease stage IV, colitis, COPD, GERD, diabetes, hypertension, hyperlipidemia, osteoarthritis presents with a 3-4 day history of diarrhea. Diarrhea began approximately 4 days ago. No episodes noted today. Per daughter Olivia who is at the bedside (medical power of environmental attorney) she first noted the diarrhea 4 days ago and had not been encouraging her mother to increase fluid intake. When she visited her mother 2 days ago she noted that she was appearing dry and continue to encourage fluid intake. Staff at the assisted noticed that she was becoming increasingly lethargic and hypoxic and sent her to the emergency department. In the ED she was found to have acute kidney injury, urinary tract infection, chest x-ray negative. She is admitted for dehydration with acute kidney injury and sepsis. Renal function continued to worsen with creatinine of 4.97, BUN of 103, and GFR of 9. Renal ultrasound showed, no evidence of hydronephrosis, echogenic appearance of the renal parenchyma suggesting underlying medical renal disease, incidental right sided lower pole parapelvic cyst, layering debris is within the urinary bladder, nonspecific. Urine culture grew ESBL that was resistant to ceftriaxone. Ceftriaxone was discontinued and meropenem was started on December 18, 2018. Her mental status improved slightly but she is still not back to baseline. I consulted with her independent contractor Dr. Elvin Stone and he stated that he would like her to get a nephrology evaluation in person. He agrees that the best option for her is to transfer to a facility has nephrology on site. I spoke with daughter Olivia who is the power of environmental attorney and she is in agreement with transferring her mom to a facility that has nephrology on site. Procedures Performed: none Results and Findings: Lab Pending Results 12/16/18 09:45: WBC 13.0 H, RBC 3.11 L, Hgb 9.9 L, Hct 31.5 L, MCV 101.3 H, MCH 31.8 H, MCHC 31.4 L, RDW 20.5 H, Plt Count 166, Neutrophils % (Manual) 42, Band Neuts % (Manual) 36 H, Lymphocytes % (Manual) 19 L, Monocytes % (Manual) 3, Neutrophils # (Manual) 5.5, Lymphocytes # (Manual) 2.5, Monocytes # (Manual) 0.4, Platelet Estimate Normal, RBC Morphology Normal 12/16/18 09:45: Sodium 138, Plasma Sodium 138, Potassium 4.2, Chloride 109 H, Carbon Dioxide 11.3 L, Anion Gap 21.9 H, BUN 90 H, Creatinine 3.96 H D, Est GFR (Non-Af Amer) 11 L D, BUN/Creatinine Ratio 22.7 H, Random Glucose 121 H, Calcium 7.8 L, Calcium Adj for Albumin 8.2 L, Total Bilirubin 0.5, AST 16, ALT 13 L, Alkaline Phosphatase 64, C-Reactive Prot, Quant 12.0 H, Total Protein 6.2, Albumin 3.1 L 12/16/18 09:45: Lactic Acid, Venous 0.8 12/16/18 09:45: Procalcitonin 1.13 H 12/16/18 10:39: Urine Color Yellow, Urine Appearance Clear, Urine pH 5.5, Ur Specific [place] 1.025, Urine Protein 100 H, Urine Glucose (UA) Negative, Urine Ketones Negative, Urine Blood Negative, Urine Nitrate Negative, Urine Bilirubin Negative, Prot Sulfosalicylic Acd 2+ H, Urine Urobilinogen Normal, Ur Leukocyte Esterase 500 H, Urine RBC None seen, Urine WBC >50 H, Ur Epithelial Cells None seen, Urine Bacteria 2+ H, Urine Culture Comments Culture to follow 12/17/18 01:04: Sodium 139, Plasma Sodium 139, Potassium 4.2, Chloride 111 H, Carbon Dioxide 9.4 L, Anion Gap 22.8 H, BUN 94 H, Creatinine 4.68 H D, Est GFR (Non-Af Amer) 9 L, BUN/Creatinine Ratio 20.1, Random Glucose 94, Calcium 7.3 L, B-Natriuretic Peptide 6097 H 12/17/18 01:04: WBC 11.7 H, RBC 2.85 L, Hgb 9.2 L, Hct 29.0 L, MCV 101.8 H, MCH 32.3 H, MCHC 31.7 L, RDW 21.0 H, Plt Count 209, MPV TNP, Neutrophils % (Manual) 46, Band Neuts % (Manual) 28 H, Lymphocytes % (Manual) 16 L, Monocytes % (Manual) 4, Eosinophils % (Manual) 2, Basophils % (Manual) 1, Immature Granulocytes 2 H, Neutrophils # (Manual) 5.4, Lymphocytes # (Manual) 1.9, Monocytes # (Manual) 0.5, Eosinophils # (Manual) 0.2, Basophils # (Manual) 0.1, Atypic/Reactive Lymphs 1, Toxic Granulation Trace, Toxic Vacuolation Trace, Dohle Bodies Trace, Platelet Estimate Normal, Giant Platelets Trace, Poikilocytosis Trace 12/17/18 05:00: Sodium 140, Plasma Sodium 140, Potassium 4.2, Chloride 112 H, Carbon Dioxide 9.3 L, Anion Gap 22.9 H, BUN 92 H, Creatinine 4.67 H, Est GFR (Non-Af Amer) 9 L, BUN/Creatinine Ratio 19.7, Random Glucose 86, Calcium 7.2 L, Calcium Adj for Albumin 7.9 L, Total Bilirubin 0.4, AST 16, ALT 13 L, Alkaline Phosphatase 57, Total Protein 5.6 L, Albumin 2.7 L 12/18/18 09:30: WBC 12.8 H, RBC 2.90 L, Hgb 9.4 L, Hct 30.3 L, MCV 104.5 H, MCH 32.4 H, MCHC 31.0 L, RDW 19.9 H, Plt Count 189, MPV 13.1 H, Immature Gran % (Auto) 1.30 H, Immature Gran # (Auto) 0.17 H, Neutrophils % 76.9 H, Lymphocytes % 13.1 L, Monocytes % 8.1, Eosinophils % 0.3, Basophils % 0.3, Nucleated RBC % 0.1, Neutrophils # 9.8 H, Lymphocytes # 1.67, Monocytes # 1.0, Eosinophils # 0.0, Absolute Basophils 0.0 12/18/18 09:30: Sodium 140, Plasma Sodium 140, Potassium 4.5, Chloride 113 H, Carbon Dioxide 10.9 L, Anion Gap 20.6 H, BUN 103 H, Creatinine 4.97 H, Est GFR (Non-Af Amer) 9 L, BUN/Creatinine Ratio 20.7, Random Glucose 130 H D, Calcium 7.2 L, Calcium Adj for Albumin 7.7 L, Total Bilirubin 0.3, AST 29, ALT 21, Alkaline Phosphatase 61, Total Protein 6.2, Albumin 3.0 L Discharge Location: [place] Disposition: Short Term Hospital Inpatient Condition: Stable Discharge Activity: Activity as tolerated Discharge Diet: General/regular food Referrals: Kym Acosta MD [Primary Care Provider] - Complete Home Medications List: Complete Home Medication List: Acetaminophen [Tylenol] 325 mg PO Q4H PRN 01/17/15 Gabapentin [Neurontin] 600 mg PO HS 02/14/16 Sodium Bicarbonate 650 mg PO TID 03/14/17 Carvedilol [Coreg] 3.125 mg PO BID 03/20/18 Calcium Carbonate 1,200 mg PO DAILY 05/07/18 Cholecalciferol (Vitamin D3) [Vitamin D3] 1,000 unit PO DAILY 05/07/18 Sertraline HCl [Zoloft] 75 mg PO DAILY 05/07/18 hydrALAZINE HCL [Apresoline] 25 mg PO TID 05/07/18 Loratadine 10 mg PO HS 07/23/18 acetaminophen 325 mg tablet 650 mg PO BID 09/02/18 budesonide 0.5 mg/2 mL suspension for nebulization 2 ml IH BID 09/02/18 Carbamide Peroxide [Debrox] 10 drp OTIC (EAR) BID PRN 09/07/18 Losartan Potassium 50 mg PO DAILY #30 tab 09/08/18 Ranitidine HCl [Heartburn Relief] 150 mg PO BID #60 tab 09/08/18 L.acidoph,Paracasei, B.lactis [Probiotic] 1 ea PO DAILY 11/06/18 Loperamide HCl [Imodium] 2 mg PO QID PRN 11/06/18 Methylcellulose [Citrucel] 1 tbs PO DAILY 11/06/18 clonazepam 0.5 mg tablet 0.25 mg PO DAILY tab 12/08/18 clonazepam 0.5 mg tablet 0.5 mg PO HS tab 12/08/18 furosemide 40 mg tablet 40 mg PO DAILY 12/08/18 guaifenesin ER 600 mg tablet, extended release 12 hr 1,200 mg PO Q12H PRN 12/08/18 ipratropium bromide 0.03 % nasal spray 2 spray GUICHO BID 12/08/18 polyvinyl alcohol 1.4 % eye drops 1 - 2 drp OP TID PRN ml 12/08/18 Atorvastatin Calcium 40 mg PO DAILY 12/16/18 Cholestyramine (with Sugar) [Questran Packet] 4 gm PO BID PRN 12/16/18 Levothyroxine Sodium [Tirosint] 125 mcg PO 0700 12/16/18 Meropenem [Merrem] 500 mg IV Q24H vial 12/18/18 Saccharomyces Boulardii [Florastor] 250 mg PO BID cap 12/18/18
[2018-12-18 14:44] VITALS: BP 133/61
== END 2018-12-18 15:40 | disposition short-term general hospital (02) | DRG 872 ==
LOC: MS 08:35 → ER 08:35 → MS 12:45
PROVIDERS: ADMIT Internal Medicine; ATTEND Internal Medicine
CPT/HCPCS: 36415; 71010; 71045; 76770; 80048; 80053; 81001; 83519; 83605; 83880; 84145; 85025; 86140; 87077; 87081; 87086; 87186; 96361; 99285

== ENCOUNTER 2019-01-01 15:44 | Observation (INO) ==
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
[2019-01-01 16:25] LABS: Mean Cell Volume 109.2 fl (78-100); Mean Corpuscular Hemoglobin 33.6 pg (27-31); Mean Corpuscular Hgb Conc 30.8 g/dl (32-36); Platelet Count 99 K/mm3 (150-450); Red Blood Count 2.29 M/mm3 (4.2-5.4); Red Cell Distribution Width 22.5 % (11.5-14.0)
[2019-01-01 16:30] LABS: Hemoglobin 7.7 gm/dL (12.5-16.0)
[2019-01-01 16:31] LABS: Total Cells Counted 100
[2019-01-01 16:43] LABS: Albumin * 2.6 gm/dl (3.4-5.0); Anion Gap 14.1 mmol/L (6.8-13.8); BUN/Creatinine Ratio 19.8 (9.0-21.6); Bilirubin, Total 0.4 mg/dL (0.0-1.1); Ca. Corrected For Albumin 8.4 mg/dL (8.4-10.2); Calcium * 7.6 mg/dL (7.9-10.9); Carbon Dioxide 17.1 mmol/L (24-32.6); Potassium 5.2 mmol/L (3.4-4.6); Total Protein 5.2 gm/dL (6.2-8.2); Troponin I 0.019 ng/mL (0.00-0.10)
[2019-01-01 16:51] LABS: Eosinophil 1 % (0-3); Lymphocyte 54 % (20-51); Monocyte 4 % (0-9); Neutrophil 41 % (42-75); Neutrophil # 2.1 K/mm3 (1.3-6.0)
[2019-01-01 16:52] LABS: Platelet Estimate Decreased (NORMAL)
[2019-01-01 16:53] LABS: Anisocytosis 1+; Poikilocytosis 1+; Target Cells 1+
[2019-01-01 16:54] LABS: Macrocytosis 2+
[2019-01-01] MEDS ORDERED: FUROSEMIDE 10 MG/ML VIAL IV ONE (18:40)
[2019-01-01] MEDS ORDERED: LOPERAMIDE HCL 2 MG CAPSULE PO PRN (18:50)
[2019-01-01] MEDS ORDERED: BUDESONIDE 0.5 MG/2 ML VIAL.NEB IH SCH ×2 (19:01→21:00)
[2019-01-01] MEDS ORDERED: FAMOTIDINE 20 MG TABLET PO SCH (21:00)
[2019-01-01] MEDS ORDERED: GABAPENTIN 300 MG CAPSULE PO SCH (21:00)
[2019-01-01] MEDS ORDERED: clonazePAM 0.5 MG TABLET PO SCH (21:00)
[2019-01-01] MEDS ORDERED: LORATADINE 10 MG TABLET PO SCH (21:00)
[2019-01-01] MEDS: SERTRALINE HCL 50 MG TABLET PO SCH (22:23)
[2019-01-01] MEDS: CARVEDILOL 3.125 MG TABLET PO SCH (22:24)
[2019-01-01] MEDS: ACETAMINOPHEN 325 MG TABLET PO SCH (22:25)
[2019-01-01] MEDS ORDERED: FUROSEMIDE 10 MG/ML VIAL ONE (23:56)
[2019-01-02 01:34] LABS: Urine Bilirubin Negative (NEGATIVE); Urine Blood Negative /ul (NEGATIVE); Urine Ketone Negative (NEGATIVE); Urine Nitrite Negative (NEGATIVE); Urine Protein Negative (NEGATIVE); Urine Urobilinogen Normal (NORMAL)
[2019-01-02 02:20] LABS: Urine Appearance Slightly Cloudy (CLEAR); Urine Bacteria TRACE; Urine Color Yellow; Urine RBC None Seen /hpf (0-5); Urine WBC TRACE /hpf (0-5)
[2019-01-02 05:37] LABS: Hematocrit 32.4 % (37.0-47.0); Hemoglobin 10.3 gm/dL (12.5-16.0)
[2019-01-02] MEDS ORDERED: LEVOTHYROXINE SODIUM 125 MCG TABLET PO SCH (07:00)
[2019-01-02] MEDS: CARVEDILOL 3.125 MG TABLET PO SCH (08:22)
[2019-01-02] MEDS: ACETAMINOPHEN 325 MG TABLET PO SCH (08:23)
[2019-01-02] MEDS: SERTRALINE HCL 50 MG TABLET PO SCH (08:24)
[2019-01-02] MEDS: clonazePAM 0.5 MG TABLET PO SCH ×2 (08:29→08:51)
[2019-01-02] MEDS ORDERED: LOSARTAN POTASSIUM 50 MG TABLET PO SCH (09:00)
[2019-01-02] MEDS ORDERED: SODIUM BICARBONATE 650 MG TABLET PO SCH (09:00)
[2019-01-02] MEDS ORDERED: FUROSEMIDE 40 MG TABLET PO SCH (09:00)
[2019-01-02] MEDS ORDERED: PSYLLIUM SEED 1 PACKET PACKET PO SCH (09:00)
--- NOTE | 2019-01-02 10:42 | HP ---
Chief Complaint - Chief Complaint Date of Service: 01/01/19 Time of Service: 18:00 Chief Complaint: anemia, lethargy, SAHNI History of Present Illness: Sepideh Hutchins is in 88yo. female who has chronic kidney disease stage IV and has had several transfusions on about a monthly basis because of anemia. She has been seeing a taxicab driver at [place] in [place] and she has been getting an injection each month and I presume that to be erythropoietin. She became markedly dyspneic which is leaning over to pick something up off the table or coffee table. She can only walk about 3 steps and would be very short of breath. Is at this point that she is brought to the hospital and received blood transfusions. Her hemoglobin on admission is 7.8 g but she is markedly dyspneic and symptomatic with her anemia. Currently she is residing at the [facility]. Medical History (Last Reviewed 01/01/19 @ 18:40 by Felicita Hill RN) CKD (chronic kidney disease), stage III (Chronic) Stage 4 chronic kidney disease (Chronic) Anemia (Acute) CHF (congestive heart failure) (Chronic) Confusion (Chronic) HTN (hypertension) (Chronic) HLD (hyperlipidemia) (Chronic) GERD (gastroesophageal reflux disease) (Chronic) Anemia Anxiety COPD (chronic obstructive pulmonary disease) Chronic diarrhea Chronic kidney disease Colitis Diabetes mellitus GERD (gastroesophageal reflux disease) Hyperkalemia Hyperlipidemia Hypertension Hypothyroid Osteoarthritis Colon cancer H/O echocardiogram Onset Date: ~03/18/17 EF 30-35% Pneumonia Surgical History: Surgical History (Last Reviewed 01/01/19 @ 18:40 by Felicita Hill RN) Cataract Onset Date: ~2006 right eye H/O breast biopsy Onset Date: Unknown H/O colonoscopy Onset Date: 2009 2012 [facility], benign tubular adenoma 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 Telles History of cholecystectomy Onset Date: 02/02/14 History of colon resection Onset Date: 2009 cancer History of hysterectomy Onset Date: 1969 History of left hip replacement Onset Date: 02/14/12 Dr. Law gibson [facility] History of right hip replacement Onset Date: 01/12/13 dr law mai History of tonsillectomy Onset Date: Unknown Rectocele Onset Date: Unknown Family History: Family History (Last Reviewed 01/01/19 @ 18:40 by Felicita Hill RN) Father Hepatitis Mother Arthritis Cancer Heart disease Hypertension Myocardial infarction Sister CVA (cerebral vascular accident) Hypertension Social History: Patient Lives/Resources [facility] Utilized Occupation retired Preferred Language Greenlandic Do you have any samaritan or Yes: restoration cultural preference? Smoking Status Former smoker Have you smoked in the past 12 No months Abuse History Emotional abuse Psych History Hx of Anxiety Alcohol Use none Drug Use none (Last Updated 12/08/18 @ 10:20 by ELIZABETH Aparicio) No Social History Section defined Review Of Systems (GEN) - Review of Systems Generalized/Overall Review: Present: Weakness EENTM: Present: No Symptoms Reported Respiratory: Present: Shortness of Breath Cardiac: Present: Palpitations Abdominal: Present: No Symptoms Reported Genitourinary: Present: No Symptoms Reported Musculoskeletal: Present: No Symptoms Reported Neurological: Present: No Symptoms Reported Skin: Present: Change in Color Endocrine: Present: No Symptoms Reported Misc: All systems neg except as marked Immunizations: IMMUNIZATION HX Immunizations Up to Date Yes History of Influenza Vaccine Yes Hx Pneumococcal Vaccination Yes Allergies/Adverse Reactions: Allergies Allergy/AdvReac Type Severity Reaction Status Date / Time erythromycin base Allergy Mild Nausea Verified 01/01/19 18:41 [Erythromycin Base] metoclopramide HCl Allergy Mild tremors Verified 01/01/19 18:41 [From Reglan] penicillin G Allergy Mild Hives Verified 01/01/19 18:41 Penicillins Allergy Unknown Other Verified 01/01/19 18:41 azithromycin [From Zithromax] Allergy upset Verified 01/01/19 18:41 stomach gemfibrozil Allergy upset Verified 01/01/19 18:41 stomach tetracycline [Tetracycline] AdvReac Intermediate Nausea Verified 01/01/19 18:41 Home Medications: HOME MEDICATIONS Acetaminophen [Tylenol] 325 mg PO Q4H PRN 01/17/15 [Last Taken Unknown] Gabapentin [Neurontin] 600 mg PO HS 02/14/16 [Last Taken 03/24/18] Sodium Bicarbonate 650 mg PO TID 03/14/17 [Last Taken Unknown] Carvedilol [Coreg] 3.125 mg PO BID 03/20/18 [Last Taken 03/25/18] Cholecalciferol (Vitamin D3) [Vitamin D3] 1,000 unit PO DAILY 05/07/18 [Last Taken Unknown] Sertraline HCl [Zoloft] 75 mg PO DAILY 05/07/18 [Last Taken Unknown] Loratadine 10 mg PO HS 07/23/18 [Last Taken Unknown] acetaminophen 325 mg tablet 650 mg PO BID 09/02/18 [Last Taken Unknown] budesonide 0.5 mg/2 mL suspension for nebulization 2 ml IH BID 09/02/18 [Last Taken Unknown] Losartan Potassium 50 mg PO DAILY #30 tab 09/08/18 [Last Taken Unknown] Ranitidine HCl [Heartburn Relief] 150 mg PO BID #60 tab 09/08/18 [Last Taken Unknown] L.acidoph,Paracasei, B.lactis [Probiotic] 1 ea PO DAILY 11/06/18 [Last Taken Unknown] Loperamide HCl [Imodium] 2 mg PO QID PRN 11/06/18 [Last Taken Unknown] Methylcellulose [Citrucel] 1 tbs PO DAILY 11/06/18 [Last Taken Unknown] clonazepam 0.5 mg tablet 0.25 mg PO DAILY tab 12/08/18 [Last Taken Unknown] clonazepam 0.5 mg tablet 0.5 mg PO HS tab 12/08/18 [Last Taken Unknown] furosemide 40 mg tablet 40 mg PO DAILY 12/08/18 [Last Taken Unknown] guaifenesin ER 600 mg tablet, extended release 12 hr 1,200 mg PO Q12H PRN 12/08/18 [Last Taken Unknown] ipratropium bromide 0.03 % nasal spray 2 spray GUICHO BID 12/08/18 [Last Taken Unknown] Atorvastatin Calcium 40 mg PO HS 12/16/18 [Last Taken Unknown] Cholestyramine (with Sugar) [Questran Packet] 4 gm PO BID PRN 12/16/18 [Last Taken Unknown] Levothyroxine Sodium [Tirosint] 125 mcg PO 0700 12/16/18 [Last Taken Unknown] Vancomycin HCl [Vancocin HCl] 125 mg PO Q6H 01/01/19 [Last Taken Unknown] Exam - Exam Vital Signs: Vital Signs - Last Taken Temp 36.5 C 01/02/19 09:00 Pulse 64 01/02/19 09:00 Resp 12 01/02/19 09:00 BP 129/61 01/02/19 09:00 Pulse Ox 95 01/02/19 09:00 Constitutional: Present: Alert, Oriented x3, Cooperative, Well developed, Well nourished, Mild distress ENT Exam: Present: normal ENT inspection, hard of hearing Eye Exam: bilateral eye: normal inspection, PERRL, EOMI Neck: Present: non-tender, supple, normal inspection, limited range of motion Back Exam: Present: normal inspection, no CVA tenderness, no vertebral tenderness Breasts: Present: Exam deferred, Nontender, Discharge Respiratory: Present: chest non-tender, normal breath sounds, rhonchi Cardiovascular/Chest: Present: normal peripheral pulses, no edema, no gallop, no JVD, no murmur, no rub, tachycardia Peripheral Pulses: carotid (R): 2+, carotid (L): 2+, radial (R): 2+, radial (L): 2+ Abdomen: Present: Normal bowel sounds, soft, nontender, nondistended, no rebound tenderness, no hepatospenomegaly, no masses /Rectal: Present: Exam deferred, External genitalia normal Extremity: Present: normal range of motion, non-tender, normal inspection, no pedal edema, no calf tenderness, normal capillary refill Skin Exam: Present: normal color, warm/dry, no cyanosis Lymphatic: Present: no adenopathy Neurologic: Present: research affiliate II-XII nml as tested Appearance: Present: appropriate appearance Eye contact: Present: cooperative, good eye contact, normal speech Thoughts: Present: normal thought pattern, no apparent hallucination Diagnostic Studies: Abnormal Lab Results 01/01/19 01/01/19 01/01/19 Range/Units 16:20 16:20 16:20 RBC 2.29 L (4.2-5.4) M/mm3 Hgb 7.7 L* (12.5-16.0) gm/dL Hct 25.0 L (37.0-47.0) % MCV 109.2 H (78-100) fl MCH 33.6 H (27-31) pg MCHC 30.8 L (32-36) g/dl RDW 22.5 H (11.5-14.0) % Plt Count 99 L (150-450) K/mm3 Neutrophils % (Manual) 41 L (42-75) % Lymphocytes % (Manual) 54 H (20-51) % Platelet Estimate Decreased L (NORMAL) Potassium 5.2 H (3.4-4.6) mmol/L Chloride 113 H (97-106) mmol/L Carbon Dioxide 17.1 L (24-32.6) mmol/L Anion Gap 14.1 H (6.8-13.8) mmol/L BUN 36 H D (3-23) mg/dL Creatinine 1.82 H D (0.4-1.4) mg/dL Est GFR (Non-Af Amer) 28 L D (60-130) mL/min Random Glucose 132 H (70-110) mg/dL Calcium 7.6 L (7.9-10.9) mg/dL Alkaline Phosphatase 49 L (50-170) U/L Total Protein 5.2 L (6.2-8.2) gm/dL Albumin 2.6 L (3.4-5.0) gm/dl Ur Leukocyte Esterase (NEGATIVE) /ul Urine WBC (0-5) /hpf Crossmatch See Detail 01/02/19 01/02/19 Range/Units 01:30 05:30 RBC (4.2-5.4) M/mm3 Hgb 10.3 L (12.5-16.0) gm/dL Hct 32.4 L (37.0-47.0) % MCV (78-100) fl MCH (27-31) pg MCHC (32-36) g/dl RDW (11.5-14.0) % Plt Count (150-450) K/mm3 Neutrophils % (Manual) (42-75) % Lymphocytes % (Manual) (20-51) % Platelet Estimate (NORMAL) Potassium (3.4-4.6) mmol/L Chloride (97-106) mmol/L Carbon Dioxide (24-32.6) mmol/L Anion Gap (6.8-13.8) mmol/L BUN (3-23) mg/dL Creatinine (0.4-1.4) mg/dL Est GFR (Non-Af Amer) (60-130) mL/min Random Glucose (70-110) mg/dL Calcium (7.9-10.9) mg/dL Alkaline Phosphatase (50-170) U/L Total Protein (6.2-8.2) gm/dL Albumin (3.4-5.0) gm/dl Ur Leukocyte Esterase 25 H (NEGATIVE) /ul Urine WBC Trace H (0-5) /hpf Crossmatch Laboratory Results WBC 5.0 K/mm3 (4.0-10.5) 01/01/19 16:20 RBC 2.29 M/mm3 (4.2-5.4) L 01/01/19 16:20 Hgb 10.3 gm/dL (12.5-16.0) L 01/02/19 05:30 Hct 32.4 % (37.0-47.0) L 01/02/19 05:30 MCV 109.2 fl (78-100) H 01/01/19 16:20 MCH 33.6 pg (27-31) H 01/01/19 16:20 MCHC 30.8 g/dl (32-36) L 01/01/19 16:20 RDW 22.5 % (11.5-14.0) H 01/01/19 16:20 Plt Count 99 K/mm3 (150-450) L 01/01/19 16:20 Neutrophils % (Manual) 41 % (42-75) L 01/01/19 16:20 Lymphocytes % (Manual) 54 % (20-51) H 01/01/19 16:20 Monocytes % (Manual) 4 % (0-9) 01/01/19 16:20 Eosinophils % (Manual) 1 % (0-3) 01/01/19 16:20 Neutrophils # (Manual) 2.1 K/mm3 (1.3-6.0) 01/01/19 16:20 Lymphocytes # (Manual) 2.7 k/mm3 (1.5-3.5) 01/01/19 16:20 Monocytes # (Manual) 0.2 k/mm3 (0.0-1.0) 01/01/19 16:20 Eosinophils # (Manual) 0.1 k/mm3 (0.0-0.7) 01/01/19 16:20 Platelet Estimate Decreased (NORMAL) L 01/01/19 16:20 Poikilocytosis 1+ 01/01/19 16:20 Anisocytosis 1+ 01/01/19 16:20 Macrocytosis 2+ 01/01/19 16:20 Target Cells 1+ 01/01/19 16:20 Sodium 139 mmol/L (132-142) 01/01/19 16:20 Plasma Sodium 140 mmol/L (130-142) 01/01/19 16:20 Potassium 5.2 mmol/L (3.4-4.6) H 01/01/19 16:20 Chloride 113 mmol/L (97-106) H 01/01/19 16:20 Carbon Dioxide 17.1 mmol/L (24-32.6) L 01/01/19 16:20 Anion Gap 14.1 mmol/L (6.8-13.8) H 01/01/19 16:20 BUN 36 mg/dL (3-23) H D 01/01/19 16:20 Creatinine 1.82 mg/dL (0.4-1.4) H D 01/01/19 16:20 Est GFR (Non-Af Amer) 28 mL/min (60-130) L D 01/01/19 16:20 BUN/Creatinine Ratio 19.8 (9.0-21.6) 01/01/19 16:20 Random Glucose 132 mg/dL (70-110) H 01/01/19 16:20 Calcium 7.6 mg/dL (7.9-10.9) L 01/01/19 16:20 Calcium Adj for Albumin 8.4 mg/dL (8.4-10.2) 01/01/19 16:20 Total Bilirubin 0.4 mg/dL (0.0-1.1) 01/01/19 16:20 AST 21 U/L (0-48) 01/01/19 16:20 ALT 26 U/L (19-67) 01/01/19 16:20 Alkaline Phosphatase 49 U/L (50-170) L 01/01/19 16:20 Troponin I 0.019 ng/mL (0.00-0.10) 01/01/19 16:20 Total Protein 5.2 gm/dL (6.2-8.2) L 01/01/19 16:20 Albumin 2.6 gm/dl (3.4-5.0) L 01/01/19 16:20 Urine Color Yellow 01/02/19 01:30 Urine Appearance Slightly cloudy (CLEAR) 01/02/19 01:30 Urine pH 6.0 pH (5.0-7.0) 01/02/19 01:30 Ur Specific [place] 1.010 SP.GR. (1.005-1.010) 01/02/19 01:30 Urine Protein Negative mg/dL (NEGATIVE) 01/02/19 01:30 Urine Glucose (UA) Negative mg/dL (NEGATIVE) 01/02/19 01:30 Urine Ketones Negative mg/dL (NEGATIVE) 01/02/19 01:30 Urine Blood Negative /ul (NEGATIVE) 01/02/19 01:30 Urine Nitrate Negative (NEGATIVE) 01/02/19 01:30 Urine Bilirubin Negative mg/dl (NEGATIVE) 01/02/19 01:30 Urine Urobilinogen Normal EU/dl (NORMAL) 01/02/19 01:30 Ur Leukocyte Esterase 25 /ul (NEGATIVE) H 01/02/19 01:30 Urine RBC None seen /hpf (0-5) 01/02/19 01:30 Urine WBC Trace /hpf (0-5) H 01/02/19 01:30 Ur Epithelial Cells Trace /hpf (0-5) 01/02/19 01:30 Urine Bacteria Trace (NONE) 01/02/19 01:30 Urine Culture Comments Culture to follow 01/02/19 01:30 Blood Type A Positive 01/01/19 16:20 Antibody Screen Negative 01/01/19 16:20 Crossmatch See Detail 01/01/19 16:20 Assessment/Plan - Narrative Narrative: She will be typed and crossed for 2 units of packed red blood cells. The first of the 2 units has been started in the emergency room. After the second unit she'll receive 20 mg of furosemide IV push. I'll recheck her hemoglobin and hematocrit 2 hours after her second unit is infused. If she is less than 9 g I will administer a third unit of blood and if over 9 g then no more blood will be given. - Assessment/Plan (1) Acute on chronic anemia Problem: Acute (2) Symptomatic anemia Problem: Acute (3) Anemia of chronic disease Problem: Chronic (4) Weakness Problem: Acute (5) Dyspnea on exertion Problem: Acute
--- NOTE | 2019-01-02 10:52 | DS ---
(1) Acute on chronic anemia Problem: Resolved (2) Symptomatic anemia Problem: Resolved (3) Anemia of chronic disease Problem: Chronic (4) Weakness Problem: Resolved (5) Dyspnea on exertion Problem: Resolved Description of Stay: Mrs. Hutchins has received 2 units of packed red blood cells and her hemoglobin has improved to 10.2 g up from 7.6 g on admission. She is much less dyspneic and her voice is stronger and she is feeling stronger today. She has been up and eating breakfast and has had no problems with that. She will be discharged to go back to the [place] [facility] where she will resume her physical therapy and occupational therapy. She will continue to see her government teacher at [facility] and receive her injections of erythropoietin. She should have a CBC drawn weekly. Procedures Performed: see notes below List Procedures: Infusion of 2 units of packed red blood cells Results and Findings: Lab Pending Results 01/01/19 16:20: WBC 5.0, RBC 2.29 L, Hgb 7.7 L*, Hct 25.0 L, MCV 109.2 H, MCH 33.6 H, MCHC 30.8 L, RDW 22.5 H, Plt Count 99 L, Neutrophils % (Manual) 41 L, Lymphocytes % (Manual) 54 H, Monocytes % (Manual) 4, Eosinophils % (Manual) 1, Neutrophils # (Manual) 2.1, Lymphocytes # (Manual) 2.7, Monocytes # (Manual) 0.2, Eosinophils # (Manual) 0.1, Platelet Estimate Decreased L, Poikilocytosis 1+, Anisocytosis 1+, Macrocytosis 2+, Target Cells 1+ 01/01/19 16:20: Sodium 139, Plasma Sodium 140, Potassium 5.2 H, Chloride 113 H, Carbon Dioxide 17.1 L, Anion Gap 14.1 H, BUN 36 H D, Creatinine 1.82 H D, Est GFR (Non-Af Amer) 28 L D, BUN/Creatinine Ratio 19.8, Random Glucose 132 H, Calcium 7.6 L, Calcium Adj for Albumin 8.4, Total Bilirubin 0.4, AST 21, ALT 26, Alkaline Phosphatase 49 L, Troponin I 0.019, Total Protein 5.2 L, Albumin 2.6 L 01/01/19 16:20: Blood Type A Positive, Antibody Screen Negative, Crossmatch See Detail 03/30/19 01:30: Urine Color Yellow, Urine Appearance Slightly cloudy, Urine pH 6.0, Ur Specific [place] 1.010, Urine Protein Negative, Urine Glucose (UA) Negative, Urine Ketones Negative, Urine Blood Negative, Urine Nitrate Negative, Urine Bilirubin Negative, Urine Urobilinogen Normal, Ur Leukocyte Esterase 25 H, Urine RBC None seen, Urine WBC Trace H, Ur Epithelial Cells Trace, Urine Bacteria Trace, Urine Culture Comments Culture to follow 01/02/19 05:30: Hgb 10.3 L, Hct 32.4 L Discharge Location: [facility] Disposition: SNF Condition: Fair Level of Care: SNF Discharge Activity: Activity as tolerated Discharge Diet: General/regular food Correction Therapy: Physicial Therapy, Occupation Therapy Referrals: Kym Acosta MD [Primary Care Provider] - Additional Patient Instructions (free text): Weekly CBC Complete Home Medications List: Complete Home Medication List: Acetaminophen [Tylenol] 325 mg PO Q4H PRN 01/17/15 Gabapentin [Neurontin] 600 mg PO HS 02/14/16 Sodium Bicarbonate 650 mg PO TID 03/14/17 Carvedilol [Coreg] 3.125 mg PO BID 03/20/18 Cholecalciferol (Vitamin D3) [Vitamin D3] 1,000 unit PO DAILY 05/07/18 Sertraline HCl [Zoloft] 75 mg PO DAILY 05/07/18 Loratadine 10 mg PO HS 07/23/18 acetaminophen 325 mg tablet 650 mg PO BID 09/02/18 budesonide 0.5 mg/2 mL suspension for nebulization 2 ml IH BID 09/02/18 Losartan Potassium 50 mg PO DAILY #30 tab 09/08/18 Ranitidine HCl [Heartburn Relief] 150 mg PO BID #60 tab 09/08/18 L.acidoph,Paracasei, B.lactis [Probiotic] 1 ea PO DAILY 11/06/18 Loperamide HCl [Imodium] 2 mg PO QID PRN 11/06/18 Methylcellulose [Citrucel] 1 tbs PO DAILY 11/06/18 clonazepam 0.5 mg tablet 0.25 mg PO DAILY tab 12/08/18 clonazepam 0.5 mg tablet 0.5 mg PO HS tab 12/08/18 furosemide 40 mg tablet 40 mg PO DAILY 12/08/18 guaifenesin ER 600 mg tablet, extended release 12 hr 1,200 mg PO Q12H PRN 12/08/18 ipratropium bromide 0.03 % nasal spray 2 spray GUICHO BID 12/08/18 Atorvastatin Calcium 40 mg PO HS 12/16/18 Cholestyramine (with Sugar) [Questran Packet] 4 gm PO BID PRN 12/16/18 Levothyroxine Sodium [Tirosint] 125 mcg PO 0700 12/16/18 Vancomycin HCl [Vancocin HCl] 125 mg PO Q6H 01/01/19
[2019-01-02 12:00] VITALS: BP 148/68
[2019-01-02] MEDS ORDERED: GABAPENTIN 600 MG TABLET PO SCH (21:00)
== END 2019-01-02 12:40 ==
LOC: ER 15:44 → INTOOBSV 16:42 → MS 16:42
PROVIDERS: ADMIT Family Medicine; ATTEND Internal Medicine
DX: R53.1 Weakness; D63.1 Anemia in chronic kidney disease; N18.9 Chronic kidney disease, unspecified; D64.89 Other specified anemias; R06.09 Other forms of dyspnea
CPT/HCPCS: 36415; 36430; 80053; 81001; 84484; 85014; 85018; 85025; 86850; 87077; 87081; 87086; 87186; 93005; 94640; 94664; 96374; 97161; 99284; G0378; P9016